=== PATIENT | male | born 1945 | race Caucasian/White ===

== ENCOUNTER → 2016-12-16 | Outpatient (CLI) | payer MEDICARE ==
--- NOTE | 2016-12-16 11:54 | US ---
EXAMINATION TYPE: US carotid duplex BILAT DATE OF EXAM: 12/16/2016 COMPARISON: 07/22/2015 CLINICAL HISTORY: I65.29 Occlusion and stenosis of carotid artery. follow up exam EXAM MEASUREMENTS: RIGHT: Peak Systolic Velocity (PSV) cm/sec ----- Right CCA: 85.5 ----- Right ICA: 180.6 ----- Right ECA: 158.9 ICA/CCA ratio: 2.1 RIGHT: End Diastole cm/sec ----- Right CCA: 16.1 ----- Right ICA: 48.5 ----- Right ECA: 13.4 LEFT: Peak Systolic Velocity (PSV) cm/sec ----- Left CCA: 74.3 ----- Left ICA: 114.4 ----- Left ECA: 125.2 ICA/CCA ratio: 1.5 LEFT: End Diastole cm/sec ----- Left CCA: 23.8 ----- Left ICA: 31.2 ----- Left ECA: 16.4 VERTEBRALS (direction of flow): Right Vertebral: Antegrade Left Vertebral: Antegrade Heterogeneous plaque seen bilaterally IMPRESSION: Atheromatous plaquing present within the carotid bifurcations. Moderate narrowing of the right internal carotid artery origin may be present based on velocity measurements and estimated bet ween 50 and 69%. Correlate with the patient's symptoms. [facility] although the degree of stenosis estimate remains the same. Criteria for Assigning % of Stenosis / Diameter reduction (Estimation based on the indirect measurements of the internal carotid artery velocities (ICA PSV). 1. Normal (no stenosis)=ICA PSV < 125 cm/s: ratio < 2.0: ICA EDV<40 cm/s. 2. Less than 50% stenosis=ICA PSV < 125 cm/s: ratio < 2.0: ICA EDV<40 cm/s. 3. 50 to 69% stenosis=ICA PSV of 125 to 230 cm/s: ratio 2.0 ? 4.0: ICA EDV 40-100 cm/s. 4. Greater than 70% stenosis to near occlusion= ICA PSV > 230 cm/s: ratio > 4.0: ICA EDV > 100 cm/s. 5. Near occlusion= ICA PSV velocities may be low or undetectable: variable ratio and ICA EDV. 6. Total occlusion=unable to detect flow.
== END | disposition home or self-care (01) ==
LOC: RADUSWWP 10:47
PROVIDERS: ATTEND Family Medicine
DX: I65.21 Occlusion and stenosis of right carotid artery (principal)
CPT/HCPCS: 93880

== ENCOUNTER 2017-12-08 12:16 | Emergency (ER) | payer MEDICARE ==
[2017-12-08 12:22] VITALS: TEMP 97.6
[2017-12-08] MEDS ORDERED: SODIUM CHLORIDE 0.9% 1,000 ML IV STA (12:51)
--- NOTE | 2017-12-08 12:54 | ED ---
Weakness HPI - General Chief complaint: Weakness Stated complaint: bilat leg weakness Time Seen by Provider: 12/08/17 12:28 Source: patient, family, RN notes reviewed Mode of arrival: wheelchair Limitations: physical limitation - History of Present Illness Initial comments: This is a 72-year-old male who states he came in from outside while walking in both legs gave out. He states he fell on his knees was not able to get up for about 20 minutes he finally rollover inside at that time his son-in-law came and helped him up. He states he last evening and episode nausea vomiting with some abdominal pain with the abdominal pain going away after the vomiting. He' s had no constipation or diarrhea denies any cough fevers chills nausea vomiting sweats no history of stroke no focal weakness at this time. MD Complaint: generalized weakness - Related Data Home Medications Medication Instructions Recorded Confirmed Atorvastatin [Lipitor] 40 mg PO HS 12/08/17 12/08/17 Losartan Potassium [Cozaar] 100 mg PO DAILY 12/08/17 12/08/17 amLODIPine [Norvasc] 5 mg PO DAILY 12/08/17 12/08/17 metFORMIN HCL 1,000 mg PO BID 12/08/17 12/08/17 Allergies Allergy/AdvReac Type Severity Reaction Status Date / Time No Known Allergies Allergy Verified 12/08/17 13:48 Review of Systems ROS Statement: Those systems with pertinent positive or pertinent negative responses have been documented in the HPI. ROS Other: All systems not noted in ROS Statement are negative. Past Medical History Past Medical History: Diabetes Mellitus, Hyperlipidemia, Hypertension History of Any Multi-Drug Resistant Organisms: None Reported Past Surgical History: Tonsillectomy Additional Past Surgical History / Comment(s): mole removal Past Psychological History: No Psychological Hx Reported Smoking Status: Current every day smoker Past Alcohol Use History: None Reported Past Drug Use History: None Reported General Exam - General Exam Comments Initial Comments: Is a well-developed well-nourished awake alert oriented times female he has a [place] Coma Scale of 15 Limitations: physical limitation General appearance: alert, in no apparent distress Head exam: Present: atraumatic, normocephalic, normal inspection Eye exam: Present: normal appearance, PERRL, EOMI. Absent: scleral icterus, conjunctival injection, periorbital swelling ENT exam: Present: mucous membranes dry Neck exam: Present: normal inspection. Absent: tenderness, meningismus, lymphadenopathy Respiratory exam: Present: normal lung sounds bilaterally. Absent: respiratory distress, wheezes, rales, rhonchi, stridor Cardiovascular Exam: Present: regular rate, normal rhythm, normal heart sounds. Absent: systolic murmur, diastolic murmur, rubs, gallop, clicks GI/Abdominal exam: Present: soft, normal bowel sounds. Absent: distended, tenderness, guarding, rebound, rigid Extremities exam: Present: normal inspection, full ROM, normal capillary refill , other (Tenderness palpation of the knees full range of motion.). Absent: tenderness, pedal edema, joint swelling, calf tenderness Back exam: Present: normal inspection Neurological exam: Present: alert, oriented X3, CN II-XII intact Psychiatric exam: Present: normal affect, normal mood Skin exam: Present: warm, dry, intact, normal color. Absent: rash Course Vital Signs 12/08/17 12/08/17 12/08/17 12:19 13:18 14:42 Temperature 97.6 F Pulse Rate 87 101 H 79 Respiratory 18 18 16 Rate Blood Pressure 90/58 110/57 141/62 O2 Sat by Pulse 95 94 L 97 Oximetry 12/08/17 15:47 Temperature Pulse Rate 71 Respiratory 18 Rate Blood Pressure 129/60 O2 Sat by Pulse 98 Oximetry EKG Findings - EKG Results: EKG: interpreted by ERINN, sinus rhythm (Sinus rhythm of 87. Interval 168 QRS 86 QT since QTC 362/435 nonspecific inferior changes.) Medical Decision Making - Medical Decision Making Patient was hydrated and feels much improved was able ably without difficulty. Patient will be discharged to did discuss the findings patient family member. Patient was offered the opportunity for admission he declined he really go home and follow up outpatient - Lab Data Result diagrams: 12/08/17 12:39 12/08/17 12:39 Lab Results 12/08/17 12/08/17 12/08/17 Range/Units 12:39 12:39 12:39 WBC 11.8 H (3.8-10.6) k/uL RBC 4.85 (4.30-5.90) m/uL Hgb 15.2 (13.0-17.5) gm/dL Hct 44.0 (39.0-53.0) % MCV 90.7 (80.0-100.0) fL MCH 31.3 (25.0-35.0) pg MCHC 34.5 (31.0-37.0) g/dL RDW 14.1 (11.5-15.5) % Plt Count 244 (150-450) k/uL Neutrophils % 87 % Lymphocytes % 5 % Monocytes % 5 % Eosinophils % 2 % Basophils % 0 % Neutrophils # 10.2 H (1.3-7.7) k/uL Lymphocytes # 0.6 L (1.0-4.8) k/uL Monocytes # 0.6 (0-1.0) k/uL Eosinophils # 0.2 (0-0.7) k/uL Basophils # 0.0 (0-0.2) k/uL Sodium 137 (137-145) mmol/L Potassium 5.1 (3.5-5.1) mmol/L Chloride 103 (98-107) mmol/L Carbon Dioxide 16 L (22-30) mmol/L Anion Gap 18 mmol/L BUN 33 H (9-20) mg/dL Creatinine 1.72 H (0.66-1.25) mg/dL Est GFR (CKD-EPI)AfAm 45 (>60 ml/min/1.73 sqM) Est GFR (CKD-EPI)NonAf 39 (>60 ml/min/1.73 sqM) Glucose 106 H (74-99) mg/dL Calcium 9.7 (8.4-10.2) mg/dL Magnesium 1.9 (1.6-2.3) mg/dL Total Bilirubin 1.2 (0.2-1.3) mg/dL AST 17 (17-59) U/L ALT 25 (21-72) U/L Alkaline Phosphatase 58 (38-126) U/L Total Creatine Kinase 181 H (55-170) U/L CK-MB (CK-2) 3.9 H* (0.0-2.4) ng/mL CK-MB (CK-2) Rel Index 2.2 Troponin I 0.017 (0.000-0.034) ng/mL Total Protein 6.9 (6.3-8.2) g/dL Albumin 4.5 (3.5-5.0) g/dL - Radiology Data Radiology results: report reviewed (I did review the imaging and report no acute findings.), image reviewed Disposition Clinical Impression: Orthostatic lightheadedness, Heat exhaustion, Dehydration, Prerenal azotemia, Fall Disposition: HOME SELF-CARE Condition: Good Instructions: Dehydration (ED), Hypotension (ED), Heat Exhaustion (ED) Additional Instructions: Increase your oral fluid consumption Is patient prescribed a controlled substance at d/c from ED?: No Referrals: Wilmer Garcia MD [Primary Care Provider] - 1-2 days
[2017-12-08 13:13] LABS: Basophils % (A) 0 %; Eosinophils # (A) 0.2 k/uL (0-0.7); Eosinophils % (A) 2 %; HGB 15.2 gm/dL (13.0-17.5); Lymphocytes # (A) 0.6 k/uL (1.0-4.8); Lymphocytes % (A) 5 %; MCH 31.3 pg (25.0-35.0); MCHC 34.5 g/dL (31.0-37.0); MCV 90.7 fL (80.0-100.0); Mean Platelet Volume 7.1; Monocytes # (A) 0.6 k/uL (0-1.0); Monocytes % (A) 5 %; Neutrophils # (A) 10.2 k/uL (1.3-7.7); Neutrophils % (A) 87 %; Platelet Count 244 k/uL (150-450); RBC 4.85 m/uL (4.30-5.90); RDW 14.1 % (11.5-15.5); WBC 11.8 k/uL (3.8-10.6)
[2017-12-08 13:22] LABS: Albumin 4.5 g/dL (3.5-5.0); Calcium 9.7 mg/dL (8.4-10.2); Magnesium 1.9 mg/dL (1.6-2.3); Potassium 5.1 mmol/L (3.5-5.1); Total Bilirubin 1.2 mg/dL (0.2-1.3); Total Protein 6.9 g/dL (6.3-8.2)
--- NOTE | 2017-12-08 13:41 | CT ---
EXAMINATION TYPE: CT brain wo con DATE OF EXAM: 12/08/2017 COMPARISON: December 30, 2010 HISTORY: pain CT DLP: [address] of the brain was performed. The ventricles, basal cisterns and sulci overlying the cerebral convexities demonstrate mild enlargem ent. There is no evidence for intracranial hemorrhage or sulcal effacement. There is decreased attenuation about the periventricular white matter and deep white matter of both c erebral hemispheres, compatible with chronic small vessel ischemia. Differential diagnosis does inclu de demyelination. No mass effects are seen.No midline shift. Osseous calvarium is intact. If symptoms persist consider MRI. IMPRESSION: 1. Age related atrophic and chronic small vessel ischemic change without acute intracranial process s een at this time.
[2017-12-08 13:45] LABS: Troponin I 0.017 ng/mL (0.000-0.034)
[2017-12-08 13:50] LABS: Creatine Kinase MB 3.9 ng/mL (0.0-2.4)
--- NOTE | 2017-12-08 13:52 | XR ---
EXAMINATION TYPE: XR chest 2V DATE OF EXAM: 12/08/2017 COMPARISON: NONE HISTORY: Shortness of breath TECHNIQUE: Frontal and lateral views of the chest are obtained. FINDINGS: Scattered senescent parenchymal changes noted. Hyperinflation compatible with COPD. No evidence for infiltrate. No evidence for atelectasis. Heart size is stable. Mediastinal structures are stable and grossly unremarkable. No evidence for hilar prominence. Degenerative changes dorsal spine. IMPRESSION: 1. No evidence for acute pulmonary disease.
--- NOTE | 2017-12-08 13:55 | XR ---
EXAMINATION TYPE: XR abdomen 1V DATE OF EXAM: 12/08/2017 COMPARISON: NONE HISTORY: Pain TECHNIQUE: Single supine KUB image of the abdomen is obtained FINDINGS: Small bowel demonstrates no evidence for dilatation or air fluid levels. Gas and fecal material is seen in non-distended colon. No convincing evidence for pneumoperitoneum. Suspect right-sided nephrolithiasis. Vascular calcific lesion seen. The lung bases are clear. The osseous structures are intact. IMPRESSION: 1. Overall nonobstructive bowel gas pattern.
[2017-12-08 15:48] VITALS: BP 129/60; PULSE 71; RESP 18
== END 2017-12-08 16:15 | disposition home or self-care (01) ==
LOC: EC 12:16
DX: T67.5XXA Heat exhaustion, unspecified, initial encounter (principal); E86.0 Dehydration; R79.89 Other specified abnormal findings of blood chemistry; E11.9 Type 2 diabetes mellitus without complications; E78.5 Hyperlipidemia, unspecified; I10 Essential (primary) hypertension; F17.200 Nicotine dependence, unspecified, uncomplicated; Z79.84 Long term (current) use of oral hypoglycemic drugs; Z79.899 Other long term (current) drug therapy; W19.XXXA Unspecified fall, initial encounter; Y93.01 Activity, walking, marching and hiking
CPT/HCPCS: 36415; 70450; 71046; 74018; 80053; 82550; 82553; 83735; 84484; 85025; 93005; 96360; 99285

== ENCOUNTER 2017-12-10 10:47 | Inpatient (IN) | payer MEDICARE ==
--- NOTE | 2017-12-10 11:50 | ED ---
General Adult HPI - General Chief complaint: Neuro Symptoms/Deficit Stated complaint: Slurred speech/weakness Time Seen by Provider: 12/10/17 11:20 Source: patient, family, RN notes reviewed Mode of arrival: wheelchair Limitations: physical limitation - History of Present Illness Initial comments: Patient is a pleasant 72-year-old male presenting to the emergency department with family for concerns for stroke. Patient did have leg weakness and a fall on Monday. Patient has had some confusion intermittently over the past week. Symptoms seemed much worse today. Patient was driving around for a couple of hours until he made it to the restaurant he was going to. Patient was more confused. Patient did have another fall however still denies injury. Family noticed slurred speech which appears new. Onset today is unclear. Symptoms were noticed by bystanders around 810 this morning when the family was called. Patient does admit to having some right lateral leg weakness however otherwise has no concerns. Patient denies any confusion. Patient states his speech seems normal. Family is also concerned that patient has been seeming depressed recently and made some suicidal comments. - Related Data Home Medications Medication Instructions Recorded Confirmed Atorvastatin [Lipitor] 40 mg PO HS 12/08/17 12/08/17 Losartan Potassium [Cozaar] 100 mg PO DAILY 12/08/17 12/08/17 amLODIPine [Norvasc] 5 mg PO DAILY 12/08/17 12/08/17 metFORMIN HCL 1,000 mg PO BID 12/08/17 12/08/17 Allergies Allergy/AdvReac Type Severity Reaction Status Date / Time No Known Allergies Allergy Verified 12/10/17 11:07 Review of Systems ROS Statement: Those systems with pertinent positive or pertinent negative responses have been documented in the HPI. ROS Other: All systems not noted in ROS Statement are negative. Constitutional: Denies: fever Eyes: Denies: eye pain ENT: Denies: ear pain Respiratory: Denies: cough Cardiovascular: Denies: chest pain Endocrine: Denies: fatigue Gastrointestinal: Denies: abdominal pain Genitourinary: Denies: dysuria Musculoskeletal: Denies: back pain Skin: Denies: rash Neurological: Reports: weakness (Bilateral leg weakness). Denies: headache Past Medical History Past Medical History: Diabetes Mellitus, Hyperlipidemia, Hypertension History of Any Multi-Drug Resistant Organisms: None Reported Past Surgical History: Tonsillectomy Additional Past Surgical History / Comment(s): mole removal Past Psychological History: No Psychological Hx Reported Smoking Status: Current every day smoker Past Alcohol Use History: None Reported Past Drug Use History: None Reported General Exam Limitations: physical limitation General appearance: alert, in no apparent distress Head exam: Present: atraumatic Eye exam: Present: normal appearance, PERRL, EOMI. Absent: nystagmus ENT exam: Present: normal oropharynx Neck exam: Present: normal inspection. Absent: tenderness Respiratory exam: Present: normal lung sounds bilaterally Cardiovascular Exam: Present: regular rate, normal rhythm GI/Abdominal exam: Present: soft. Absent: tenderness Extremities exam: Present: normal inspection Neurological exam: Present: alert, oriented X3, CN II-XII intact Expanded Neurological exam: Present: other (Patient does have some slurred speech) Patient oriented to: Present: person, place, time Cranial nerves: EOM's Intact: Normal Cerebellar function: Finger to Nose: Normal Sensory exam: Upper Extremity Light Touch: Normal, Lower Extremity Light Touch: Normal Motor strength exam: RUE: 5, LUE: 5, RLE: 4, LLE: 5 Eye Response: (4) open spontaneously Motor Response: (6) obeys commands Verbal Response: (5) oriented Psychiatric exam: Present: normal affect, normal mood Skin exam: Present: normal color Course Vital Signs 12/10/17 12/10/17 11:03 12:23 Temperature 98.4 F Pulse Rate 93 82 Respiratory 18 18 Rate Blood Pressure 99/64 99/49 O2 Sat by Pulse 95 96 Oximetry EKG Findings - EKG Comments: EKG Findings:: Normal sinus rhythm 86. [place] 158. QRS 86. QT 368. QTC 440. Normal axis. Normal QRS. No acute ST change. Medical Decision Making - Medical Decision Making Patient reevaluated without significant change. Patient and family were updated. Case was discussed in detail with Dr. Medel, who will admit for Dr. Garcia. Neurology and psychiatry will be placed on consult. - Lab Data Result diagrams: 12/10/17 12:05 12/10/17 12:05 Lab Results 12/10/17 12/10/17 12/10/17 Range/Units 12:05 12:05 12:05 WBC 9.0 (3.8-10.6) k/uL RBC 4.56 (4.30-5.90) m/uL Hgb 14.1 (13.0-17.5) gm/dL Hct 41.5 (39.0-53.0) % MCV 91.1 (80.0-100.0) fL MCH 30.9 (25.0-35.0) pg MCHC 33.9 (31.0-37.0) g/dL RDW 14.1 (11.5-15.5) % Plt Count 237 (150-450) k/uL Neutrophils % 77 % Lymphocytes % 11 % Monocytes % 6 % Eosinophils % 4 % Basophils % 1 % Neutrophils # 6.9 (1.3-7.7) k/uL Lymphocytes # 1.0 (1.0-4.8) k/uL Monocytes # 0.6 (0-1.0) k/uL Eosinophils # 0.4 (0-0.7) k/uL Basophils # 0.1 (0-0.2) k/uL PT (9.0-12.0) sec INR (<1.2) APTT (22.0-30.0) sec Sodium 139 (137-145) mmol/L Potassium 4.8 (3.5-5.1) mmol/L Chloride 106 (98-107) mmol/L Carbon Dioxide 20 L (22-30) mmol/L Anion Gap 13 mmol/L BUN 38 H (9-20) mg/dL Creatinine 2.43 H (0.66-1.25) mg/dL Est GFR (CKD-EPI)AfAm 30 (>60 ml/min/1.73 sqM) Est GFR (CKD-EPI)NonAf 26 (>60 ml/min/1.73 sqM) Glucose 104 H (74-99) mg/dL Calcium 9.5 (8.4-10.2) mg/dL Total Bilirubin 1.3 (0.2-1.3) mg/dL AST 17 (17-59) U/L ALT 26 (21-72) U/L Alkaline Phosphatase 63 (38-126) U/L Total Creatine Kinase 254 H (55-170) U/L CK-MB (CK-2) 2.5 H* (0.0-2.4) ng/mL CK-MB (CK-2) Rel Index 1.0 Troponin I <0.012 (0.000-0.034) ng/mL Total Protein 6.7 (6.3-8.2) g/dL Albumin 4.4 (3.5-5.0) g/dL Urine Color Urine Appearance (Clear) Urine pH (5.0-8.0) Ur Specific [place] (1.001-1.035) Urine Protein (Negative) Urine Glucose (UA) (Negative) Urine Ketones (Negative) Urine Blood (Negative) Urine Nitrite (Negative) Urine Bilirubin (Negative) Urine Urobilinogen (<2.0) mg/dL Ur Leukocyte Esterase (Negative) 12/10/17 12/10/17 Range/Units 12:05 12:29 WBC (3.8-10.6) k/uL RBC (4.30-5.90) m/uL Hgb (13.0-17.5) gm/dL Hct (39.0-53.0) % MCV (80.0-100.0) fL MCH (25.0-35.0) pg MCHC (31.0-37.0) g/dL RDW (11.5-15.5) % Plt Count (150-450) k/uL Neutrophils % % Lymphocytes % % Monocytes % % Eosinophils % % Basophils % % Neutrophils # (1.3-7.7) k/uL Lymphocytes # (1.0-4.8) k/uL Monocytes # (0-1.0) k/uL Eosinophils # (0-0.7) k/uL Basophils # (0-0.2) k/uL PT 10.2 (9.0-12.0) sec INR 1.0 (<1.2) APTT 24.2 (22.0-30.0) sec Sodium (137-145) mmol/L Potassium (3.5-5.1) mmol/L Chloride (98-107) mmol/L Carbon Dioxide (22-30) mmol/L Anion Gap mmol/L BUN (9-20) mg/dL Creatinine (0.66-1.25) mg/dL Est GFR (CKD-EPI)AfAm (>60 ml/min/1.73 sqM) Est GFR (CKD-EPI)NonAf (>60 ml/min/1.73 sqM) Glucose (74-99) mg/dL Calcium (8.4-10.2) mg/dL Total Bilirubin (0.2-1.3) mg/dL AST (17-59) U/L ALT (21-72) U/L Alkaline Phosphatase (38-126) U/L Total Creatine Kinase (55-170) U/L CK-MB (CK-2) (0.0-2.4) ng/mL CK-MB (CK-2) Rel Index Troponin I (0.000-0.034) ng/mL Total Protein (6.3-8.2) g/dL Albumin (3.5-5.0) g/dL Urine Color Yellow Urine Appearance Clear (Clear) Urine pH 5.5 (5.0-8.0) Ur Specific [place] 1.021 (1.001-1.035) Urine Protein Trace H (Negative) Urine Glucose (UA) Negative (Negative) Urine Ketones Negative (Negative) Urine Blood Negative (Negative) Urine Nitrite Negative (Negative) Urine Bilirubin Negative (Negative) Urine Urobilinogen 2.0 (<2.0) mg/dL Ur Leukocyte Esterase Negative (Negative) - Radiology Data Radiology results: report reviewed (ET scan of the brain reveals no acute abnormality. Degenerative changes.) Interpreted by me: Chest x-ray shows no acute abnormality. Radiology report is pending. Disposition Clinical Impression: Cerebrovascular accident Disposition: ADMITTED IP TO THIS HOSP Is patient prescribed a controlled substance at d/c from ED?: No Referrals: Wilmer Garcia MD [Primary Care Provider] - 1-2 days Decision Time: 13:48
[2017-12-10 12:30] LABS: Basophils # (A) 0.1 k/uL (0-0.2); Basophils % (A) 1 %; Eosinophils # (A) 0.4 k/uL (0-0.7); Eosinophils % (A) 4 %; HCT 41.5 % (39.0-53.0); HGB 14.1 gm/dL (13.0-17.5); Lymphocytes % (A) 11 %; MCH 30.9 pg (25.0-35.0); MCHC 33.9 g/dL (31.0-37.0); MCV 91.1 fL (80.0-100.0); Mean Platelet Volume 7.2; Monocytes # (A) 0.6 k/uL (0-1.0); Monocytes % (A) 6 %; Neutrophils # (A) 6.9 k/uL (1.3-7.7); Neutrophils % (A) 77 %; Platelet Count 237 k/uL (150-450); RBC 4.56 m/uL (4.30-5.90); RDW 14.1 % (11.5-15.5)
[2017-12-10 12:36] LABS: Appearance,Urine Clear (Clear); Bilirubin,Urine Negative (Negative); Blood,Urine Negative (Negative); Color,Urine Yellow; Glucose,Urine (UA) Negative (Negative); Ketones,Urine Negative (Negative); Leukocyte Esterase,Urine Negative (Negative); Nitrite,Urine Negative (Negative); PH, Urine 5.5 (5.0-8.0); Protein,Urine Trace (Negative); Specific Gravity,Urine 1.021 (1.001-1.035)
[2017-12-10 12:37] LABS: Albumin 4.4 g/dL (3.5-5.0); Calcium 9.5 mg/dL (8.4-10.2); Partial Thromboplastin Time 24.2 sec (22.0-30.0); Potassium 4.8 mmol/L (3.5-5.1); Prothrombin Time 10.2 sec (9.0-12.0); Total Bilirubin 1.3 mg/dL (0.2-1.3); Total Protein 6.7 g/dL (6.3-8.2)
[2017-12-10 12:56] LABS: Creatine Kinase 254 U/L (55-170)
--- NOTE | 2017-12-10 13:09 | CT ---
EXAMINATION TYPE: CT brain wo con DATE OF EXAM: 12/10/2017 COMPARISON: Previous study dated 12/08/2017. HISTORY: Slurred speech/weakness, neuro deficits CT DLP: 1150 mGycm Automated exposure control for dose reduction was used. FINDINGS: There are generalized changes of sulcal prominence and ventriculomegaly, compatible with atrophic alfredo nge. There is diffuse periventricular white matter lucency, compatible with chronic white matter isch emic change. There is no acute focal lesion, mass effect or midline shift identified. I do not see ev idence of intracranial blood. Visualized portions of the paranasal sinuses and mastoids are clear. The bony calvarium is intact. IMPRESSION: 1. NO ACUTE INTRACRANIAL ABNORMALITY. 2. DEGENERATIVE CHANGE.
[2017-12-10 13:10] LABS: Troponin I <0.012 ng/mL (0.000-0.034)
[2017-12-10 13:13] LABS: Creatine Kinase MB 2.5 ng/mL (0.0-2.4)
[2017-12-10] MEDS ORDERED: ASPIRIN 325 MG TAB PO STA (13:48)
--- NOTE | 2017-12-10 14:02 | XR ---
EXAMINATION TYPE: XR chest 2V DATE OF EXAM: 12/10/2017 HISTORY: altered mental status. REFERENCE: Previous study dated 12/08/2017. FINDINGS: The lungs are clear. Pleural space are clear. The heart is not enlarged. IMPRESSION: NO ACTIVE CARDIOTHORACIC ABNORMALITY.
--- NOTE | 2017-12-10 15:25 | US ---
EXAMINATION TYPE: US carotid duplex BILAT DATE OF EXAM: 12/10/2017 COMPARISON: Previous 12/16/2016 CLINICAL HISTORY: Stenosis. HTN. Patient states walking and legs gave out, unable to stand back up. EXAM MEASUREMENTS: RIGHT: Peak Systolic Velocity (PSV) cm/sec ----- Right CCA: 59.0 ----- Right ICA: 188.4 ----- Right ECA: 153.0 ICA/CCA ratio: 3.2 RIGHT: End Diastole cm/sec ----- Right CCA: 10.1 ----- Right ICA: 38.6 ----- Right ECA: 0.0 LEFT: Peak Systolic Velocity (PSV) cm/sec ----- Left CCA: 61.6 ----- Left ICA: 89.7 ----- Left ECA: 174.6 ICA/CCA ratio: 1.5 LEFT: End Diastole cm/sec ----- Left CCA: 10.1 ----- Left ICA: 20.4 ----- Left ECA: 0.0 VERTEBRALS (direction of flow): Right Vertebral: Antegrade Left Vertebral: Antegrade Rhythm: Normal Bilateral wall thickening. Right CCA significant stenosis. Elevated velocities seen in right prox I CA, right mid ICA, right ECA and left ECA. Plaque seen right mid CCA, bilateral bulbs and prox left ECA. IMPRESSION: Hemodynamic significant stenosis of the proximal internal carotid artery on the right by Doppler criteria, corresponding to approximately 50-69% diameter reduction at Doppler criteria, an i ndirect measurement of carotid stenosis, consider carotid CTA Criteria for Assigning % of Stenosis / Diameter reduction (Estimation based on the indirect measurements of the internal carotid artery velocities (ICA PSV). 1. Normal (no stenosis)=ICA PSV < 125 cm/s: ratio < 2.0: ICA EDV<40 cm/s. 2. Less than 50% stenosis=ICA PSV < 125 cm/s: ratio < 2.0: ICA EDV<40 cm/s. 3. 50 to 69% stenosis=ICA PSV of 125 to 230 cm/s: ration 2.0 ? 4.0: ICA EDV 40-100 cm/s. 4. Greater than 70% stenosis to near occlusion= ICA PSV > 230 cm/s: ratio > 4.0: ICA EDV > 100 cm/s. 5. Near occlusion= ICA PSV velocities may be low or undetectable: variable ratio and ICA EDV. 6. Total occlusion=unable to detect flow.
[2017-12-10] MEDS: SODIUM CHLORIDE 0.9% 1,000 ML IV SCH (16:03)
[2017-12-10 17:02] VITALS: BMI 32.3
[2017-12-10 17:41] LABS: Glucose,Whole Blood 127 mg/dL (75-99)
[2017-12-10] MEDS ORDERED: HYDROcodone/APAP 10-325MG 1 EACH TAB PO PRN (18:23)
[2017-12-10] MEDS: ATORVASTATIN 40 MG TAB PO SCH (19:40)
--- NOTE | 2017-12-10 20:00 | P.CNNES ---
History of Present Illness Consult date: 12/10/17 Reason for Consult: Patient admitted with weakness and confusion and possible stroke. History of Present Illness: This patient is a 72-year-old right-handed white male who apparently this past Monday was at home and sustained a fall. Patient states he was so weak in his legs he could not stand due to the weakness. Apparently he was able to pull himself up and was able to get back to his normal routine on Monday. Apparently today the patient decided to make a trip to the restaurant and apparently while going in sustained a fall. He was once again complaining of weakness in his legs prior to the fall. He was noted by several bystanders at about 8 AM this morning as being confused and complaining of weakness on his right leg. The patient did not appear to be confused. His speech has been noticed by his family is being slurred on Monday. The exact onset of his speech and weakness is still unclear. The family was very concerned as he is also been complaining of feeling very depressed and having suicidal ideation. For these reasons the family decided to bring him to the emergency room for further evaluation. He was seen in the emergency room at [facility] today for further evaluation. Apparently he was here on 12/08/2017 after his initial fall at home and was felt to have dehydration and mild hypotension. He was discharged home. Now with the second fall today and increasing suicidal ideation he was admitted to the hospital by Dr. Duke in the emergency room. He was sent for another repeat computed tomography scan of the brain today which revealed no acute intracranial abnormality. There was some degenerative changes noted. No change from previous study done 2017. Patient denies any significant past history of TIA or stroke. Apparently his mood disorder and depression symptoms are more recent. He does have a sitter at bedside. Patient did undergo a carotid Doppler ultrasound today which reveals CT hemodynamically significant stenosis of the right internal carotid artery measuring 5069 percent stenosis. The patient states he does take one baby aspirin but not on a regular basis at home. He is now been admitted and neurology has been consulted for further evaluation and recommendations. Review of Systems Constitutional: Denies chills, Denies fever Eyes: denies blurred vision, denies pain Ears, nose, mouth and throat: Denies headache, Denies sore throat Cardiovascular: Denies chest pain, Denies shortness of breath Respiratory: Denies cough Gastrointestinal: Denies abdominal pain, Denies diarrhea, Denies nausea, Denies vomiting Musculoskeletal: Denies myalgias Integumentary: Denies pruritus, Denies rash Neurological: Reports change in mentation, Reports change in speech, Reports confusion, Reports gait dysfunction, Reports memory loss, Reports motor disturbance, Reports paresthesias, Denies numbness, Denies weakness Psychiatric: Reports memory loss, Reports suicidal ideation, Denies anxiety, Denies depression Endocrine: Denies fatigue, Denies weight change Past Medical History Past Medical History: Diabetes Mellitus, Hyperlipidemia, Hypertension History of Any Multi-Drug Resistant Organisms: None Reported Past Surgical History: Tonsillectomy Additional Past Surgical History / Comment(s): mole removal Past Psychological History: No Psychological Hx Reported Smoking Status: Current every day smoker Past Alcohol Use History: None Reported Past Drug Use History: None Reported - Past Family History Sister(s) History Unknown: Yes Medications and Allergies Home Medications Medication Instructions Recorded Confirmed Type Atorvastatin [Lipitor] 40 mg PO HS 12/08/17 12/10/17 History Losartan Potassium [Cozaar] 100 mg PO DAILY 12/08/17 12/10/17 History amLODIPine [Norvasc] 5 mg PO DAILY 12/08/17 12/10/17 History metFORMIN HCL 1,000 mg PO BID 12/08/17 12/10/17 History HYDROcodone/APAP 10-325MG [[place] 1 tab PO Q6HR PRN 12/10/17 12/10/17 History 10-325] Ibuprofen [Motrin] 800 mg PO TID PRN 12/10/17 12/10/17 History Allergies Allergy/AdvReac Type Severity Reaction Status Date / Time No Known Allergies Allergy Verified 12/10/17 14:21 Physical Examination - Vital Signs Vital Signs: Vital Signs Temp Pulse Pulse Resp BP BP Pulse Ox 12/10/17 15:48 80 18 135/63 96 12/10/17 14:48 91 18 112/61 97 12/10/17 13:48 83 18 116/57 95 12/10/17 13:46 85 18 99/55 95 12/10/17 12:23 82 18 99/49 96 12/10/17 11:03 98.4 F 93 18 99/64 95 Intake and Output 12/10/17 12/10/17 12/10/17 06:59 14:59 22:59 Other: Weight 99.246 kg - Constitutional General appearance: average body habitus, cooperative - EENT EENT: PERRL, mucous membranes moist - Respiratory Respiratory: lungs clear, normal breath sounds - Cardiovascular Cardiovascular: regular rate, normal S1, normal S2 Extremities: no peripheral edema bilaterally - Gastrointestinal Gastrointestinal: normoactive bowel sounds - Integumentary Integumentary: normal - Neurologic Cranial nerve examination: PERRL, EOMI, VFF, V1/V2/V3 grossly intact, face symmetric, tongue midline, intact gag reflex, intact corneal reflex, normal palatal elevation Speech examination: intact Sensorimotor examination: intact Motor examination - right side: 4/5: biceps, triceps, wrist flexion, wrist extension, pulley worker, hip flexors, knee extensors, dorsiflexion, toe extension (EHL) , plantarflexion Motor examination - left side: 4/5: biceps, triceps, wrist flexion, wrist extension, pulley worker, hip flexors, knee extensors, dorsiflexion, toe extension (EHL) , plantarflexion Detailed sensory examination: intact Reflex and gait examination: intact Reflexes: 1+: ankle, bicep, knee, tricep - Musculoskeletal Musculoskeletal: no pain - Psychiatric Psychiatric: mood/affect appropriate, cooperative Results - Laboratory Findings CBC and BMP: 12/10/17 12:05 12/10/17 12:05 Abnormal Lab Findings: Abnormal Labs 12/10/17 12/10/17 12/10/17 12:05 12:05 12:29 Carbon Dioxide 20 L BUN 38 H Creatinine 2.43 H Glucose 104 H Total Creatine Kinase 254 H CK-MB (CK-2) 2.5 H* Urine Protein Trace H Assessment and Plan (1) Left acute arterial ischemic stroke, MCA (middle cerebral artery) Current Visit: Yes Status: Acute Code(s): I63.512 - CEREB INFRC D/T UNSP OCCLS OR STENOS OF LEFT MID CEREB ART SNOMED Code(s): 060077326 (2) Suicidal ideation Current Visit: Yes Status: Acute Code(s): R45.851 - SUICIDAL IDEATIONS SNOMED Code(s): 9922806 (3) Fall Current Visit: No Status: Acute Code(s): W19.XXXA - UNSPECIFIED FALL, INITIAL ENCOUNTER SNOMED Code(s): 6849287 (4) Dehydration Current Visit: No Status: Acute Code(s): E86.0 - DEHYDRATION SNOMED Code(s ): 25508503 (5) Orthostatic lightheadedness Current Visit: No Status: Acute Code(s): R42 - DIZZINESS AND GIDDINESS SNOMED Code(s): 85810385 Plan: This patient is a 72-year-old male being evaluated for recent fall that occurred on Monday of this past week. He was unable get up due to weakness in his legs. He had another fall this morning while going to a restaurant at about 8 AM. He could not get himself up. He was brought into the emergency room where he was evaluated by Dr. Duke. He underwent a computed tomography scan of the brain which revealed age related atrophy and chronic small vessel ischemic changes. He had 2 CAT scans performed as he was seen in the emergency room on 12/08/2017 as well and CAT scan once again was negative. Patient was subsequently admitted to hospital today for further neurological evaluation for stroke as well as psychiatry consultation regarding suicidal ideation. We have recommended the patient undergo an MRI of the brain and a complete stroke evaluation. His overall prognosis at this time remains very guarded. Time with Patient: Greater than 30
[2017-12-10 21:13] LABS: Glucose,Whole Blood 124 mg/dL (75-99)
[2017-12-10] MEDS: INSULIN ASPART 100 UNIT/ML 1 ML 10 ML VIAL SQ SCH (21:20)
--- NOTE | 2017-12-10 23:42 | HP ---
HISTORY AND PHYSICAL CHIEF COMPLAINTS: Confusion, suicidal ideation, weakness, fall. HISTORY OF PRESENT ILLNESS: This 72-year-old gentleman with a past medical history of diabetes, hypertension, hyperlipidemia being followed by Dr. Wilmer Garcia in the outpatient setting complaining of generalized weakness and tiredness. The patient apparently not eating and drinking well. The patient apparently had a fall on Monday, came to the ER dehydrated. Patient went home. Currently patient another fall and the patient was found to be apparently mildly confused and also had some suicidal ideation. The patient also lost money to a probable scam according to the staff. The patient admitted for further evaluation and treatment. CT scan did not show any acute abnormality. Minimal weakness on the right side is noted. Urology is following the patient closely. Creatinine is elevated. There is no history of fever, rigors or chills at this time. PAST MEDICAL HISTORY: Diabetes, hypertension and hyperlipidemia. MEDICATIONS: Prior to admission include: 1. Metformin 1000 mg p.o. b.i.d. 2. Norvasc 5 mg p.o. daily. 3. Cozaar 100 mg p.o. daily. 4. Motrin 800 mg t.i.d. p.r.n. 5. Hydrocodone 1 tab q.6h p.r.n. 6. Lipitor 40 mg q.h.s. ALLERGIES: None. FAMILY HISTORY: No history of heart disease or strokes in family. SOCIAL HISTORY: History of continued smoking. REVIEW OF SYSTEMS: ENT: Diminished hearing or vision. CARDIOVASCULAR: No angina or palpitations. RESPIRATORY: As mentioned earlier. GI no nausea or vomiting. : No dysuria or hematuria. NERVOUS SYSTEM: No numbness or weakness. ALLERGY/IMMUNOLOGY: No asthma or hayfever. MUSCULOSKELETAL as mentioned earlier. HEMATOLOGY/ONCOLOGY: No history of anemia. ENDOCRINE: As mentioned earlier. CONSTITUTIONAL: As mentioned earlier. DERMATOLOGY: Negative. RHEUMATOLOGY: Negative. PSYCHIATRY: As mentioned earlier. PHYSICAL EXAMINATION: GENERAL: Alert and oriented x3. VITAL SIGNS : Pulse 67, blood pressure 132/60, respiration 19, temperature 97.6, pulse ox 96% on room air. HEENT: Conjunctivae normal. Oral mucosa moist. NECK: No jugular venous distention. No carotid bruit. No lymph node enlargement. CARDIOVASCULAR SYSTEM: S1, S2 muffled. No S3, no S4. RESPIRATORY: Breath sounds diminished in the bases. A few scattered rhonchi and crackles. ABDOMEN: Soft, nontender. No mass palpable. LEGS: No edema. No swelling. NERVOUS SYSTEM: Higher functions as mentioned earlier, mild diffuse weakness on the right side present. Otherwise moves all other limbs. Gait dysfunction present. SKIN: No ulcer, rash or bleeding. LYMPHATICS: No lymph nodes palpable in the neck, axillae or groin. JOINTS: No active deforming arthropathy. LABS: WBC 9, hemoglobin 14.1, creatinine is 2.43 and CK-MB is 2.5. ASSESSMENT: 1. Weakness and gait dysfunction fall with possibly right-sided weakness, with possibly left-sided acute cerebrovascular accident. 2. Renal failure with creatinine 2.43 with acute renal failure possible acute prerenal renal failure. 3. Diabetes. 4. History of hypertension. 5. History of hyperlipidemia. 6. History of nicotine dependence. RECOMMENDATIONS AND DISCUSSION: In this 72-year-old gentleman who presented with multiple complex medical issues, we will monitor the patient closely. Continue the current medications and symptomatic treatment. Lipitor and aspirin has been initiated. Otherwise, we will continue to monitor and hold metformin and Cozaar and ibuprofen. We will repeat the labs. Cautious IV fluids. Neurology evaluation. Suicidal ideation and a psych evaluation. MRI brain and EEG also has been ordered. Prognosis guarded because of multiple complex medical issues and further recommendations to follow. MMODL / IJN: [id number] /
[2017-12-11] MEDS: SODIUM CHLORIDE 0.9% 1,000 ML IV SCH ×3 (01:54→21:03)
[2017-12-11 06:08] LABS: Glucose,Whole Blood 124 mg/dL (75-99)
[2017-12-11] MEDS: INSULIN ASPART 100 UNIT/ML 1 ML 10 ML VIAL SQ SCH ×4 (06:08→20:45)
[2017-12-11 07:29] LABS: Basophils # (A) 0.1 k/uL (0-0.2); Basophils % (A) 1 %; Eosinophils # (A) 0.3 k/uL (0-0.7); Eosinophils % (A) 4 %; HCT 39.3 % (39.0-53.0); HGB 13.2 gm/dL (13.0-17.5); Lymphocytes # (A) 1.1 k/uL (1.0-4.8); Lymphocytes % (A) 15 %; MCH 31.1 pg (25.0-35.0); MCHC 33.7 g/dL (31.0-37.0); MCV 92.2 fL (80.0-100.0); Mean Platelet Volume 6.7; Monocytes # (A) 0.5 k/uL (0-1.0); Monocytes % (A) 7 %; Neutrophils # (A) 5.5 k/uL (1.3-7.7); Neutrophils % (A) 72 %; Platelet Count 211 k/uL (150-450); RBC 4.26 m/uL (4.30-5.90); RDW 14.1 % (11.5-15.5); WBC 7.6 k/uL (3.8-10.6)
[2017-12-11 07:53] LABS: Calcium 9.2 mg/dL (8.4-10.2); Potassium 4.7 mmol/L (3.5-5.1)
[2017-12-11] MEDS: ASPIRIN 325 MG TAB PO SCH (08:10)
[2017-12-11] MEDS: amLODIPine 5 MG TAB PO SCH (08:11)
[2017-12-11 11:46] LABS: Glucose,Whole Blood 103 mg/dL (75-99)
[2017-12-11 12:06] LABS: Hemoglobin A1C 6.3 % (4.0-6.0)
--- NOTE | 2017-12-11 13:05 | MR ---
EXAMINATION TYPE: MR brain wo con DATE OF EXAM: 12/11/2017 12:41 PM COMPARISON: NONE HISTORY: Patient with bilateral leg weakness and falls FINDINGS: The ventricles, basal cisterns and sulci overlying the cerebral convexities are moderately enlarged. There is evidence of moderate periventricular white matter ischemic demyelination. Remote deep white matter insults are also noted. No acute edema is seen on diffusion weighted imaging. There is no evidence for midline shift or mass effect. Acute intracranial hemorrhage or extra-axial collection is not evident. The paranasal sinuses are well-aerated. Chronic mastoiditis bilateral mastoid sinuses. IMPRESSION: Age-related atrophic and chronic small vessel ischemic change. No acute intracranial process at this time.
--- NOTE | 2017-12-11 15:07 | ECHOF ---
Referral Reason:Thrombus MEASUREMENTS -------- HEIGHT: 175.3 cm WEIGHT: 100.2 kg BP: 119/57 IVSd: 1.4 cm (0.6 - 1.1) LVIDd: 3.9 cm (3.9 - 5.3) LVPWd: 1.0 cm (0.6 - 1.1) IVSs: 1.7 cm LVIDs: 2.4 cm LVPWs: 1.8 cm Ao Diam: 3.2 cm (2.0 - 3.7) LA Diam: 3.4 cm (2.7 - 3.8) AV Cusp: 1.4 cm (1.5 - 2.6) EPSS: 0.3 cm MV E Dusty: 1.00 m/s MV DecT: 251 ms MV A Dusty: 1.04 m/s MV E/A Ratio: 0.97 AV maxP.52 mmHg AV meanP.12 mmHg RAP: 5.00 mmHg RVSP: 18.23 mmHg MV EF SLOPE: 40.37 mm/s (70 - 150) MV EXCURSION: 16.66 mm (> 18.000) FINDINGS -------- Sinus rhythm. This was a technically good study. The left ventricular size is normal. There is mild concentric left ventricular hypertrophy. Overa ll left ventricular systolic function is normal with, an EF between 55 - 60 %. The right ventricle is normal in size and function. The left atrium is normal in size. The right atrium is normal in size. Aortic valve is trileaflet and is mildly thickened. There is mild aortic valve sclerosis. The mitral valve leaflets are mildly thickened. Mild mitral regurgitation is present. Mild tricuspid regurgitation present. The right ventricular systolic pressure, as measured by Doppl er, is 18.23mmHg. Pulmonic valve appears structurally normal. The aortic root size is normal. The pericardium is normal. CONCLUSIONS -------- 1. Sinus rhythm. 2. This was a technically good study. 3. The left ventricular size is normal. 4. There is mild concentric left ventricular hypertrophy. 5. Overall left ventricular systolic function is normal with, an EF between 55 - 60 %. 6. The right ventricle is normal in size and function. 7. The left atrium is normal in size. 8. The right atrium is normal in size. 9. Aortic valve is trileaflet and is mildly thickened. 10. There is mild aortic valve sclerosis. 11. The mitral valve leaflets are mildly thickened. 12. Mild mitral regurgitation is present. 13. Mild tricuspid regurgitation present. 14. The right ventricular systolic pressure, as measured by Doppler, is 18.23mmHg. 15. Pulmonic valve appears structurally normal. 16. The aortic root size is normal. 17. The pericardium is normal. EXECUTIVE DIRECTOR: Meseret May RDCS
[2017-12-11] MEDS: NICOTINE 21MG/24HR PATCH TRANSDERM SCH (15:38)
[2017-12-11 17:16] LABS: Glucose,Whole Blood 92 mg/dL (75-99)
--- NOTE | 2017-12-11 17:41 | P.CN ---
Psychiatric Consult - . Consult date: 12/11/17 Consult:: 12/11/17 17:24 Identification: Patient is a 72-year-old male who was admitted from the emergency room, patient had fallen and return to the emergency room confused. Reason for Consult: Depression, suicidal ideation History of Present Illness: Patient's chart was reviewed, the patient was seen and interviewed in his room no family members were present Patient states that he fell at home on Monday when his legs gave out and he came to the emergency room and was sent home. He states that he returned on Monday when he tripped on the ledge going into breakfast at a restaurant with a friend patient states that he was not feeling confused or lightheaded or dizzy. Patient reports no other symptoms prior to either of those incidents. Patient states that he is not depressed that he has been eating but doesn't drink much water drinks mostly diet soda. He reports that he does not have any suicidal ideation and has never made any suicide attempts. Patient states that he lives with his daughter and son-in-law and has since 1991. Patient states that he was not thinking of hurting himself, has never made any attempts and denies feeling depressed, hopeless, helpless or worthless. Patient states that he has never been treated for any psychiatric problems in the past. Patient states that he has no financial problems and reports that he cares for his own finances. Patient states he continues to drive and does have friends that he goes out with. Patient states that he has never attempted suicide and has never had any suicidal thoughts. After my visit with the patient nursing staff came to me and told me that the family was quite upset and states that the patient had verbalized planning to try to hang himself in the barn on January 03, is unclear what the significance of that date is. Patient family also states that he is been wiring money to someone. They state that he has not been himself, not caring for his personal hygiene as well as he has in the past. Patient's family was not present during the interview. Past Psychiatric History: Patient denies any prior history of psychiatric treatment either inpatient or outpatient and is never been placed on any psychotropic medication Past Medical/Surgical History: Patient has a history of diabetes, hypertension hyperlipidemia Family History: Patient denies that there is any family history of any psychiatric disorder, states her brother was a drug user and did overdose and states that he is unsure if this was a suicide attempt or just an accidental overdose. Social History: Patient's parents are both he has one sister and one brother were alive and one brother. States that he is in contact with his family members. Patient states that he was for 20 years and in 1991 and has 2 children from that marriage. States that she filed for divorce. Patient states he was remarried for 4 years and filed for divorce in 2003. Patient states that he lives with his daughter, since his divorce in 1991. He reported to me that she was living with him in his house per nursing staff patient's daughter states that it is her house and he lives in the basement. 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 He states he had multiple jobs and reports no current financial difficulty. When I confronted him about having a relationship with a woman over the Internet he did agree that he was doing so he refused to discuss whether he was wiring her money or not told me that it was not my business. Patient's family states that they think the relationship has been going on since August 2016. Substance Use History: Patient denies any alcohol use at this time and denies any drug use history. Patient does smoke tobacco products Mental status:Appearance/Attitude: Patient is dressed in a hospital gown, lying in bed in no acute distress, he was slightly hard of hearing and was cooperative Behavior: Patient did not exhibit any psychomotor agitation or retardation Speech/Language: Patient's speech was spontaneous, normal volume and rhythm and he was coherent Thought Process: Patient was goal-directed, he gave little elaboration and there was no evidence of loose association or flight of ideas Thought Content: Patient denied auditory or visual hallucinations no delusions or paranoid ideation were elicited. Patient states that he is not feeling depressed denied feeling hopeless or helpless did admit when I questioned him regarding his family's concerns about having a relationship with a woman over the Internet that he was doing so. He refused to discuss whether he was wiring money to this person or not stating he was not my business. When I confronted the patient regarding the family statements that he had threatened to hang himself in the barn on January 03 he stated that he had never made any of those kinds of statements. Patient states that he was sleeping at home and he was eating. Per the family the patient is not caring for his activities of daily living as he has in the past. Suicidal/Homicidal Ideation: Patient adamantly denied any current suicidal or homicidal ideation Sensorium/Cognition: Patient was alert and oriented to person, city, place and knew the month and year. Patient was also given a MOCA and scored 19 out of 30. Patient was able to recall only 1 word out of 5, was unable to do serial sevens after the first subtraction, could not name any words that began with the letter F, and had difficulty with abstraction. Patient was able to do trail making, draw a clock with correct time and copy a cube. Mood/Affect: Patient became irritable with me and quite upset with his family when I confronted him with what family had reported to nursing staff regarding his suicidal thoughts and to this woman, his at was appropriate to his mood Insight/Judgment: Patient's insight and judgment are fair Assessment: Patient's family is reporting that the patient has not been himself recently, has not been caring for his ADLs has been sending money to someone that he has a relationship with over the Internet and is also been verbalizing suicidal thoughts with a plan to hang himself on January 03. When confronted with this information the patient denies that he is ever made suicidal statements denies that he is feeling depressed and states that he has been having a relationship with someone over the Internet but refuses to discuss whether he is wired money to her not stating it's none of my business. Patient has no prior history of suicide attempts and no history of treatment for depression in the past. On neurocognitive testing the patient does score of 19 out of 30 and most of his difficulties were with language, abstraction, delayed recall and attention. Patient is not endorsing any symptoms of psychosis, anxiety and denies feeling depressed, hopeless, worthless. Patient does have evidence of a neurocognitive disorder and on his MRI there is evidence of atrophy as well as small vessel ischemia. Patient has no prior history of psychiatric treatment. Diagnosis: Neurocognitive disorder, mild unknown etiology; rule out depression Plan: Discussed the case with nursing staff and will continue the sitter at this time to observe the patient's behavior and whether or not he makes any suicidal statements. Patient is not showing any evidence of a psychotic process , he denies any current suicidal or homicidal ideation but does on testing show neurocognitive disorder. If the family is concerned regarding his ability to manage his funds then they should consider either becoming his payee or guardian. Will return to reevaluate the patient and assess whether treatment is needed at this time as patient is denying any symptoms of depression or suicide but the family is reporting that he has been making suicidal statements at home. 12/11/17 17:29
[2017-12-11] MEDS: ATORVASTATIN 40 MG TAB PO SCH (19:29)
[2017-12-11 20:45] LABS: Glucose,Whole Blood 127 mg/dL (75-99)
--- NOTE | 2017-12-12 00:33 | P.PN ---
Subjective Progress Note Date: 12/11/17 This patient is a 72-year-old male who was admitted to Hospital with symptoms of bilateral leg weakness and possible stroke. Patient presented with some right-sided weakness suggesting possibility of acute left hemispheric stroke. Patient was able to complete a MRI of the brain today which revealed age related atrophy and chronic small vessel ischemic changes. No evidence of acute intracranial process was noted. The patient was also evaluated by psychiatry as he was having symptoms of suicidal ideation and depression. He was seen by psychiatrist today and has some features of neurocognitive disorder. He underwent routine EEG today which will be reviewed. His carotid Doppler study was completed yesterday and revealed right ICA stenosis of 5069 percent. The patient is resting comfortably in bed. He does have a sitter at bedside. He is able to follow simple commands. We reviewed the results of his MRI of the brain today with him in detail. We will continue close neurological follow-up for the patient during this admission. We have recommended the patient undergo routine EEG which is not been completed today. We will await tomorrow to see if this can be done. In the meantime he is to continue current treatment plans. Overall prognosis at this time remains guarded. Objective - Vital Signs Vital signs: Vital Signs Temp 97.8 F 12/11/17 19:31 Pulse 71 12/11/17 19:32 Resp 19 12/11/17 19:32 BP 162/75 12/11/17 19:31 Pulse Ox 100 12/11/17 19:31 Intake & Output 12/11/17 12/11/17 12/12/17 06:59 18:59 06:59 Intake Total 800 1280 Output Total 800 0 Balance 0 1280 Weight 100.5 kg Intake: Intake, IV Titration 800 1100 Amount Sodium Chloride 0.9% 1, 800 1100 000 ml @ 100 mls/hr IV . Q10H [facility] Rx#:[id number] Oral 180 Output: Urine 800 0 Other: Voiding Method Urinal Urinal # Voids 2 - Exam Physical examination: PHYSICAL EXAMINATION: Patient is resting comfortably in bed. VITAL SIGNS: Blood pressure is [162/75]. Heart rate is [71]. Respiration is [19] . Temperature is [97.8]. HEENT: Head is atraumatic, neck is supple, there were no carotid bruits. CHEST: Lungs are clear to auscultation and percussion. CARDIAC: S1, S2 normal rate and rhythm. There is no murmur. ABDOMEN: Soft and nontender. Bowel sounds are present. EXTREMITIES: There is no pedal edema. Peripheral pulses are present. Neurological examination: Patient has a nonfocal neurological examination. He does have a sitter at bedside. Patient denies any new symptoms today. He has not shown any aggressive behavior. - Labs CBC & Chem 7: 12/11/17 06:10 12/11/17 06:10 Labs: Abnormal Lab Results - Last 24 Hours (Table) 12/10/17 12/11/17 12/11/17 Range/Units 12:05 06:07 06:10 RBC (4.30-5.90) m/uL Chloride 110 H (98-107) mmol/L Carbon Dioxide 21 L (22-30) mmol/L BUN 35 H (9-20) mg/dL Creatinine 1.88 H (0.66-1.25) mg/dL Glucose 104 H (74-99) mg/dL POC Glucose (mg/dL) 124 H (75-99) mg/dL Hemoglobin A1c 6.3 H (4.0-6.0) % HDL Cholesterol 28 L (40-60) mg/dL 12/11/17 12/11/17 12/11/17 Range/Units 06:10 11:41 20:44 RBC 4.26 L (4.30-5.90) m/uL Chloride (98-107) mmol/L Carbon Dioxide (22-30) mmol/L BUN (9-20) mg/dL Creatinine (0.66-1.25) mg/dL Glucose (74-99) mg/dL POC Glucose (mg/dL) 103 H 127 H (75-99) mg/dL Hemoglobin A1c (4.0-6.0) % HDL Cholesterol (40-60) mg/dL Assessment and Plan (1) Left acute arterial ischemic stroke, MCA (middle cerebral artery) Current Visit: Yes Status: Acute Code(s): I63.512 - CEREB INFRC D/T UNSP OCCLS OR STENOS OF LEFT MID CEREB ART SNOMED Code(s): 486610157 (2) Suicidal ideation Current Visit: Yes Status: Acute Code(s): R45.851 - SUICIDAL IDEATIONS SNOMED Code(s): 8055973 (3) Fall Current Visit: No Status: Acute Code(s): W19.XXXA - UNSPECIFIED FALL, INITIAL ENCOUNTER SNOMED Code(s): 2768941 (4) Dehydration Current Visit: No Status: Acute Code(s): E86.0 - DEHYDRATION SNOMED Code(s ): 65296017 (5) Orthostatic lightheadedness Current Visit: No Status: Acute Code(s): R42 - DIZZINESS AND GIDDINESS SNOMED Code(s): 78505851 Plan: This patient is being evaluated for symptoms of possible TIA. He underwent MRI of the brain today the results of which are noted above. There is no evidence of acute stroke on the MRI of the brain. He was seen by psychiatry today as well as he has had some symptoms of suicidal ideation. He does have evidence of neurocognitive disorder and may have early signs of dementia. He may require further workup as outpatient. He underwent carotid Doppler study yesterday which revealed significant stenosis of the right internal carotid artery of 5069 percent. Patient otherwise seems to be doing fairly well. We will continue close neurological follow-up for the patient.
[2017-12-12] MEDS: SODIUM CHLORIDE 0.9% 1,000 ML IV SCH (05:41)
[2017-12-12 05:50] LABS: Glucose,Whole Blood 117 mg/dL (75-99)
[2017-12-12] MEDS: INSULIN ASPART 100 UNIT/ML 1 ML 10 ML VIAL SQ SCH ×2 (05:53→12:41)
[2017-12-12 07:13] LABS: Basophils # (A) 0.1 k/uL (0-0.2); Basophils % (A) 1 %; Eosinophils # (A) 0.3 k/uL (0-0.7); Eosinophils % (A) 5 %; HCT 40.7 % (39.0-53.0); HGB 13.5 gm/dL (13.0-17.5); Lymphocytes # (A) 1.1 k/uL (1.0-4.8); Lymphocytes % (A) 17 %; MCH 30.3 pg (25.0-35.0); MCHC 33.1 g/dL (31.0-37.0); MCV 91.7 fL (80.0-100.0); Mean Platelet Volume 6.9; Monocytes # (A) 0.4 k/uL (0-1.0); Monocytes % (A) 6 %; Neutrophils # (A) 4.4 k/uL (1.3-7.7); Neutrophils % (A) 69 %; Platelet Count 209 k/uL (150-450); RBC 4.44 m/uL (4.30-5.90); RDW 14.3 % (11.5-15.5); WBC 6.4 k/uL (3.8-10.6)
[2017-12-12 07:27] LABS: Calcium 9.4 mg/dL (8.4-10.2); Potassium 4.6 mmol/L (3.5-5.1)
[2017-12-12 07:29] VITALS: RESP 18
[2017-12-12] MEDS: ASPIRIN 325 MG TAB PO SCH (07:31)
[2017-12-12] MEDS: NICOTINE 21MG/24HR PATCH TRANSDERM SCH (07:31)
[2017-12-12] MEDS: amLODIPine 5 MG TAB PO SCH (07:31)
--- NOTE | 2017-12-12 10:53 | PN ---
PROGRESS NOTE DATE OF SERVICE: 12/11/2017 This 72-year-old gentleman admitted with confusion, suicidal ideation, weakness and fall is being closely monitored. The MRI has been done today which showed age-related changes and no acute abnormalities noted. No chest pain or palpitation. No fever. PHYSICAL EXAMINATION: On exam, alert and oriented x3, pulse is 71, blood pressure 162/75, respiration 19, temperature 97.8, pulse ox 100% on room air. HEENT: Conjunctivae normal. Oral mucosa moist. Neck is no jugular venous distention. No carotid bruit. No lymph node enlargement. CARDIOVASCULAR: S1 and S2 muffled. RESPIRATORY: Breath sounds diminished at the bases. No rhonchi, no crackles. ABDOMEN: Soft, nontender. NERVOUS SYSTEM: Mild diffuse weakness. LABS: Creatinine is 1.88. Otherwise, MRI noted. A 2D echo with Doppler showed ejection fraction of 55% to 60% and the carotid Doppler was also done which showed right 50% to 69% carotid stenosis. ASSESSMENT: 1. Weakness with gait dysfunction with possible right-sided weakness with possible left-sided acute cerebrovascular accident. 2. Right carotid stenosis 50% to 69%. 3. Renal failure with creatinine 2.43, possibly acute on chronic kidney disease, chronic kidney disease stage III baseline. 4. Diabetes mellitus type 2. 5. Hypertension. 6. Hyperlipidemia. 7. History of nicotine dependence. RECOMMENDATIONS AND DISCUSSION: Recommend to continue current medications, continue symptomatic treatment. Otherwise continue with hydration, repeat labs. Closely monitor with multiple consultants. Prognosis guarded. Discussed with family at length and further recommendations will follow. We will also recommend vascular consultation as well. MMODL / IJN: [id number] /
[2017-12-12 11:10] VITALS: BP 139/75; PULSE 68; TEMP 96.8
[2017-12-12 11:53] LABS: Glucose,Whole Blood 90 mg/dL (75-99)
--- NOTE | 2017-12-12 15:11 | CONS ---
DATE OF CONSULTATION: 12/12/2017 This is a 72-year-old gentleman who has been admitted with history of bilateral leg swelling and weakness. Patient came with some right-sided weakness suggestive of a left hemispheric stroke. Patient completed MRI of the brain which revealed age- related atrophy and small-vessel ischemic changes. There is no evidence of intracranial hemorrhage and he was also seen by psychiatrist and he was having symptoms of suicidal ideation and depression. Patient had a carotid ultrasound study today which showed right side 50%-69% stenosis. PHYSICAL EXAMINATION: Patient was seen in his room. Neck is supple. Trachea is central. Chest is clear to auscultation. Abdomen is soft, nontender. Vascular examination, brachial radial femoral pulses are present. Patient's motor functions are normal for upper and lower extremity. The patient is on antiplatelet therapy. IMPRESSION: Right carotid stenosis 50% - 69%. Motor functions are intact for upper and lower extremity. At this point, there is no role of surgical intervention. Patient is under care of Neurology and Internal Medicine. If patient goes home, I will follow in my office. RODRICKL / YOANDYN: [id number] / SERGIO
--- NOTE | 2017-12-12 17:17 | DS ---
DISCHARGE SUMMARY DATE OF SERVICE: 12/12/2017. FINAL DIAGNOSES: 1. Weakness and gait dysfunction with possible right-sided weakness and possibly caused left-sided acute cerebrovascular accident. 2. Right carotid stenosis 50-69%. 3. Renal failure with creatinine 2.43, possible acute on chronic kidney disease with chronic kidney stage III baseline. 4. Diabetes mellitus type 2. 5. Hypertension. 6. Hyperlipidemia. 7. History of nicotine dependence. DISCHARGE DISPOSITION: The patient will be discharged in stable condition with guarded prognosis. Discharge cleared by multiple consultants. Stable overall prognosis guarded. Total time taken 35 minutes. HISTORY OF PRESENT ILLNESS: This 72-year-old gentleman with a past medical history of multiple medical problems, admitted with features of stroke and multiple other medical problems, treated symptomatically. Vascular Surgery and Neurology saw the patient. Psychiatry also saw the patient and 2D echo was noted. On exam, vital signs are stable. CARDIOVASCULAR: S1, S2 ABDOMEN: Soft. NERVOUS SYSTEM: Mild diffuse weakness. DISCHARGE ADVICE AND MEDICATIONS: 1. Diet is cardiac. 2. Activity limited until followup. 3. Follow up with Dr. Wilmer Garcia 2-3 days. 4. Follow with Dr. Lottie Dumont and Dr. Trinh as advised. MEDICATIONS: 1. Norvasc 5 mg p.o. daily. 2. Lipitor 40 mg q.h.s. 3. Hydrocodone 1 tablet every 6 hours p.r.n. 4. Ecotrin 81 mg p.o. daily. 5. Habitrol 21 daily. MMODL / IJN: [id number] /
--- NOTE | 2017-12-12 21:44 | EEG ---
ELECTROENCEPHALOGRAM REPORT DATE OF EE12/12/2017. REFERRING PHYSICIAN: Dr. Wilmer Garcia. CONSULTING/INTERPRETING PHYSICIAN: Dr. Arabella Dumont MD ELECTROENCEPHALOGRAPHIC EXAMINATION REPORT: INDICATION FOR EXAMINATION: This patient is a 72-year-old male being evaluated for TIA and recent fall. AGE: [age]. EEG FINDINGS: A routine 21 channel awake digital EEG recording was accomplished utilizing the 10-20 international system with bipolar and referential montages. The background activity in the most alert resting state consists of a low to medium amplitude, fairly well- developed and well sustained 7-8 Hz activity over the posterior head regions. This posterior rhythm attenuates to eye opening. There is a small amount of low amplitude 18-20 Hz beta activity seen maximally over the anterior head regions. Muscle and movement artifact was observed on a few occasions during the tracing. Hyperventilation was not performed. Photic stimulation at flash frequencies of 2-30 Hz produced a good symmetrical occipital driving response. No epileptiform discharges were seen. IMPRESSION: This EEG is normal for the patient's age. The EEG failed to reveal any focal, lateralized, or epileptiform abnormalities. Clinical correlation is recommended. MMODL / IJN: [id number] /
--- NOTE | 2017-12-13 09:38 | P.PN ---
Subjective Progress Note Date: 12/12/17 This patient is a 72-year-old male who was admitted to Hospital with symptoms of bilateral leg weakness and possible stroke. Patient presented with some right-sided weakness suggesting possibility of acute left hemispheric stroke. Patient was able to complete a MRI of the brain today which revealed age related atrophy and chronic small vessel ischemic changes. No evidence of acute intracranial process was noted. The patient was also evaluated by psychiatry as he was having symptoms of suicidal ideation and depression. He was seen by psychiatrist today and has some features of neurocognitive disorder. He underwent routine EEG today which will be reviewed. His carotid Doppler study was completed yesterday and revealed right ICA stenosis of 5069 percent. The patient is resting comfortably in bed. He does have a sitter at bedside. He is able to follow simple commands. We reviewed the results of his MRI of the brain today with him in detail. We will continue close neurological follow-up for the patient during this admission. We have recommended the patient undergo routine EEG which is not been completed today. We will await tomorrow to see if this can be done. In the meantime he is to continue current treatment plans. Overall prognosis at this time remains guarded. Objective - Vital Signs Vital signs: Vital Signs Temp 96.8 F L 12/12/17 11:08 Pulse 68 12/12/17 11:08 Resp 18 12/12/17 11:13 BP 139/75 12/12/17 11:08 Pulse Ox 99 12/12/17 11:08 Intake & Output 12/11/17 12/12/17 12/12/17 18:59 06:59 18:59 Intake Total 1280 800 118 Output Total 0 Balance 1280 800 118 Weight 97.3 kg Intake: Intake, IV Titration 1100 800 Amount Sodium Chloride 0.9% 1, 1100 800 000 ml @ 100 mls/hr IV . Q10H [facility] Rx#:[id number] Oral 180 118 Output: Urine 0 Other: Voiding Method Urinal Urinal Toilet Urinal # Voids 3 - Exam Physical examination: PHYSICAL EXAMINATION: Patient is resting comfortably in bed. VITAL SIGNS: Blood pressure is [139/75]. Heart rate is [68]. Respiration is [18] . Temperature is [96.8]. HEENT: Head is atraumatic, neck is supple, there were no carotid bruits. CHEST: Lungs are clear to auscultation and percussion. CARDIAC: S1, S2 normal rate and rhythm. There is no murmur. ABDOMEN: Soft and nontender. Bowel sounds are present. EXTREMITIES: There is no pedal edema. Peripheral pulses are present. Neurological examination: Patient has a nonfocal neurological examination. He does have a sitter at bedside. Patient denies any new symptoms today. He has not shown any aggressive behavior. - Labs CBC & Chem 7: 12/12/17 06:12 12/12/17 06:12 Labs: Abnormal Lab Results - Last 24 Hours (Table) 12/11/17 12/12/17 12/12/17 Range/Units 20:44 05:49 06:12 Chloride 110 H (98-107) mmol/L Carbon Dioxide 20 L (22-30) mmol/L BUN 25 H (9-20) mg/dL Creatinine 1.30 H (0.66-1.25) mg/dL Glucose 110 H (74-99) mg/dL POC Glucose (mg/dL) 127 H 117 H (75-99) mg/dL Assessment and Plan (1) Left acute arterial ischemic stroke, MCA (middle cerebral artery) Status: Acute Code(s): I63.512 - CEREB INFRC D/T UNSP OCCLS OR STENOS OF LEFT MID CEREB ART SNOMED Code(s): 149172787 (2) Suicidal ideation Status: Acute Code(s): R45.851 - SUICIDAL IDEATIONS SNOMED Code(s): 1919766 (3) Fall Status: Acute Code(s): W19.XXXA - UNSPECIFIED FALL, INITIAL ENCOUNTER SNOMED Code(s): 5111056 (4) Dehydration Status: Acute Code(s): E86.0 - DEHYDRATION SNOMED Code(s): 71841611 (5) Orthostatic lightheadedness Status: Acute Code(s): R42 - DIZZINESS AND GIDDINESS SNOMED Code(s): 62974710 Plan: This patient is being evaluated for symptoms of possible TIA. He underwent MRI of the brain today the results of which are noted above. There is no evidence of acute stroke on the MRI of the brain. He was seen by psychiatry today as well as he has had some symptoms of suicidal ideation. He does have evidence of neurocognitive disorder and may have early signs of dementia. He may require further workup as outpatient. He underwent carotid Doppler study yesterday which revealed significant stenosis of the right internal carotid artery of 5069 percent. Patient otherwise seems to be doing fairly well. His EEG was reviewed and was within normal limits with no epilepitform discharges. Possible discharge home soon. We will continue close neurological follow-up for the patient.
== END 2017-12-12 15:19 | disposition home or self-care (01) | DRG 65 ==
LOC: EC 10:47 → 6SEL 13:48
PROVIDERS: ADMIT Family Medicine; ATTEND Family Medicine
DX: I63.9 Cerebral infarction, unspecified (principal); G81.91 Hemiplegia, unspecified affecting right dominant side; R45.851 Suicidal ideations; N17.9 Acute kidney failure, unspecified; E11.22 Type 2 diabetes mellitus with diabetic chronic kidney disease; E86.0 Dehydration; N18.3 Chronic kidney disease, stage 3 (moderate); R40.2362 Coma scale, best motor response, obeys commands, at arrival to emergency department; R40.2142 Coma scale, eyes open, spontaneous, at arrival to emergency department; R40.2252 Coma scale, best verbal response, oriented, at arrival to emergency department; R29.702 NIHSS score 2; R47.81 Slurred speech; R41.9 Unspecified symptoms and signs involving cognitive functions and awareness; R26.9 Unspecified abnormalities of gait and mobility; I65.21 Occlusion and stenosis of right carotid artery; I12.9 Hypertensive chronic kidney disease with stage 1 through stage 4 chronic kidney disease, or unspecified chronic kidney disease; E78.5 Hyperlipidemia, unspecified; H91.90 Unspecified hearing loss, unspecified ear; F17.200 Nicotine dependence, unspecified, uncomplicated; Z71.6 Tobacco abuse counseling; Z79.899 Other long term (current) drug therapy; W19.XXXA Unspecified fall, initial encounter; Y92.009 Unspecified place in unspecified non-institutional (private) residence as the place of occurrence of the external cause; Z81.3 Family history of other psychoactive substance abuse and dependence
CPT/HCPCS: 36415; 70450; 70551; 71046; 80048; 80053; 80061; 81003; 82550; 82553; 83036; 84484; 85025; 85610; 85730; 93005; 93306; 93880; 95816; 99285

== ENCOUNTER 2019-02-27 19:38 | Emergency (ER) | payer MEDICARE ==
[2019-02-27 19:44] VITALS: BP 180/82; PULSE 71; RESP 18; TEMP 97.9
--- NOTE | 2019-02-27 20:26 | XR ---
EXAMINATION TYPE: XR chest 2V DATE OF EXAM: 02/27/2019 COMPARISON: 12/10/2017 HISTORY: Rib pain TECHNIQUE: Frontal and lateral views of the chest are obtained. FINDINGS: Heart and mediastinum are normal. Lungs are clear. Diaphragm is normal. Bony thorax is int act. IMPRESSION: Normal chest. No adverse change compared to old exam.
--- NOTE | 2019-02-27 20:52 | ED ---
Fall HPI - General Chief Complaint: Fall Stated Complaint: fall/rib pain Time Seen by Provider: 02/27/19 19:49 Source: patient Mode of arrival: ambulatory - History of Present Illness Initial Comments: Patient is a 73-year-old male presenting to the emergency department with a chief complaint of a fall. Patient reports he was at home when he slipped and fell forward and attempted to brace himself with his left arm. Patient denies any pain but does report left-sided chest wall pain in the left flank pain. Patient reports the pain is exacerbated at full inspiration and alleviated when taking small breaths. Patient denies any shortness of breath. Patient denies any head trauma. Patient denies any headaches or blurry vision at this time. Patient denies taking any medication to the symptoms. Patient is not blood thinners. - Related Data Home Medications Medication Instructions Recorded Confirmed Atorvastatin [Lipitor] 40 mg PO HS 12/08/17 12/10/17 amLODIPine [Norvasc] 5 mg PO DAILY 12/08/17 12/10/17 HYDROcodone/APAP 10-325MG [Isabella 1 tab PO Q6HR PRN 12/10/17 12/10/17 10-325] Previous Rx's Medication Instructions Recorded Aspirin EC [Ecotrin Low Dose] 81 mg PO DAILY #30 tablet. 12/12/17 Nicotine 21Mg/24Hr Patch [Habitrol] 1 patch TRANSDERM DAILY #30 patch 12/12/17 Allergies Allergy/AdvReac Type Severity Reaction Status Date / Time No Known Allergies Allergy Verified 12/10/17 14:21 Review of Systems ROS Statement: Those systems with pertinent positive or pertinent negative responses have been documented in the HPI. ROS Other: All systems not noted in ROS Statement are negative. Past Medical History Past Medical History: Diabetes Mellitus, Hyperlipidemia, Hypertension History of Any Multi-Drug Resistant Organisms: None Reported Past Surgical History: Tonsillectomy Additional Past Surgical History / Comment(s): mole removal Past Anesthesia/Blood Transfusion Reactions: No Reported Reaction Past Psychological History: No Psychological Hx Reported Smoking Status: Current every day smoker Past Alcohol Use History: None Reported Past Drug Use History: None Reported - Past Family History Sister(s) History Unknown: Yes General Exam Limitations: no limitations General appearance: alert, in no apparent distress Head exam: Present: atraumatic, normocephalic, normal inspection. Absent: other (Negative periorbital Ecchymosis, negative Smart sign, negative) Eye exam: Present: normal appearance, PERRL, EOMI Pupils: Present: normal accommodation ENT exam: Present: normal exam, mucous membranes moist, normal external ear exam Neck exam: Present: normal inspection, full ROM. Absent: tenderness Respiratory exam: Present: normal lung sounds bilaterally, chest wall tenderness (Left chest wall tenderness with palpation) Cardiovascular Exam: Present: regular rate, normal rhythm, normal heart sounds Extremities exam: Present: normal inspection. Absent: full ROM (Slight decrease in range of motion in the left shoulder.) Back exam: Present: normal inspection, full ROM, tenderness (Left flank tenderness) Neurological exam: Present: alert, oriented X3 Psychiatric exam: Present: normal affect, normal mood Skin exam: Present: warm, intact, normal color Course Vital Signs 02/27/19 19:40 Temperature 97.9 F Pulse Rate 71 Respiratory 18 Rate Blood Pressure 180/82 O2 Sat by Pulse 99 Oximetry Medical Decision Making - Medical Decision Making Patient is a 73-year-old male presenting to the emergency department with a chief complaint of a fall. Patient reports he was at his house when he tripped and fell forward and injuring mostly the left side of his body. Patient reports most of the pain is located on the left chest wall in the left flank region. Patient reports the pain is exacerbated with full inspiration. I suspect this to be is a result due to an expanding chest cavity and not a pneumothorax. Chest x-ray is unremarkable for any fractures or pneumo. No visible signs of trauma are noted on physical examination in the region of tenderness. Strict return parameters were thoroughly discussed with patient was understanding and agreeable. Case discussed with physician. Disposition Clinical Impression: Fall Disposition: HOME SELF-CARE Condition: Stable Instructions (If sedation given, give patient instructions): Fall Prevention (ED) Additional Instructions: Alternate between Tylenol and ibuprofen for pain control. Please follow with primary care. Please return to emergency department is symptoms worsen. Is patient prescribed a controlled substance at d/c from ED?: No Referrals: Wilmer Garcia MD [Primary Care Provider] - 1-2 days Time of Disposition: 20:50
== END 2019-02-27 21:04 | disposition home or self-care (01) ==
LOC: EC 19:38
DX: R07.1 Chest pain on breathing (principal); R10.9 Unspecified abdominal pain; F17.200 Nicotine dependence, unspecified, uncomplicated; E78.5 Hyperlipidemia, unspecified; I10 Essential (primary) hypertension; Z79.899 Other long term (current) drug therapy; W01.0XXA Fall on same level from slipping, tripping and stumbling without subsequent striking against object, initial encounter; Y92.009 Unspecified place in unspecified non-institutional (private) residence as the place of occurrence of the external cause
CPT/HCPCS: 71046; 99283

== ENCOUNTER 2019-10-09 11:11 | Inpatient (IN) | payer MEDICARE ==
[2019-10-09 11:50] LABS: Basophils % (A) 0 %; Eosinophils # (A) 0.1 k/uL (0-0.7); Eosinophils % (A) 2 %; HCT 39.1 % (39.0-53.0); HGB 12.8 gm/dL (13.0-17.5); Lymphocytes # (A) 0.8 k/uL (1.0-4.8); Lymphocytes % (A) 10 %; MCH 31.6 pg (25.0-35.0); MCHC 32.8 g/dL (31.0-37.0); MCV 96.3 fL (80.0-100.0); Mean Platelet Volume 7.4; Monocytes # (A) 0.4 k/uL (0-1.0); Monocytes % (A) 5 %; Neutrophils # (A) 6.1 k/uL (1.3-7.7); Neutrophils % (A) 81 %; Platelet Count 235 k/uL (150-450); RBC 4.06 m/uL (4.30-5.90); RDW 13.6 % (11.5-15.5); WBC 7.5 k/uL (3.8-10.6)
--- NOTE | 2019-10-09 11:55 | CT ---
EXAMINATION TYPE: CT brain wo con DATE OF EXAM: 10/09/2019 COMPARISON: 12/10/2017 HISTORY: Lt side weakness CT DLP: [address] of the brain was performed. The ventricles, basal cisterns and sulci overlying the cerebral convexities demonstrate mild enlargem ent. There is no evidence for intracranial hemorrhage or sulcal effacement. There is decreased attenuation about the periventricular white matter and deep white matter of both c erebral hemispheres, compatible with chronic small vessel ischemia. Differential diagnosis does inclu de demyelination. No mass effects are seen.No midline shift. Osseous calvarium is intact. If symptoms persist consider MRI. IMPRESSION: 1. Age related atrophic and chronic small vessel ischemic change without acute intracranial process s een at this time.
--- NOTE | 2019-10-09 12:00 | ED ---
Neuro HPI - General Chief Complaint: Neuro Symptoms/Deficit Stated Complaint: left arm & leg numbness Time Seen by Provider: 10/09/19 11:15 Source: patient Mode of arrival: wheelchair Limitations: physical limitation - History of Present Illness Is the patient presenting with stroke symptoms?: Yes Initial Comments: The patient is a 74-year-old male with past medical history of hypertension, hyperlipidemia and diabetes who presents emergency room with reported left upper and lower extremity weakness. Patient reports his symptoms started around 77 30 this morning. Get acute onset of left upper and lower extremity weakness. Family also reports that he was confused. He went to sit outside in his car to talk to a friend's. He was on the phone when he sustained a fall, stating that he "feels as if he doesn't have any control over his arm or leg." He fell and hit his left hand and sustained abrasions. Patient also has an abrasion noted to the right side of his face even though he denies head injury. Family does a dmit that the confusion appears somewhat improved. He was resistant to come into the emergency room for evaluation. He has a history of previous CVA in 2018 without residual deficits. He said to full dose aspirins this morning. Denies any headaches or visual changes. No speech difficulty. No abdominal pain. There are no other alleviating, precipitating or modifying factors - Related Data Home Medications: Home Medications Medication Instructions Recorded Confirmed Atorvastatin [Lipitor] 40 mg PO DAILY 12/08/17 10/09/19 amLODIPine [Norvasc] 5 mg PO DAILY 12/08/17 10/09/19 HYDROcodone/APAP 10-325MG [[place] 1 tab PO QID 12/10/17 10/09/19 10-325] Ibuprofen [Motrin] 800 mg PO TID PRN 10/09/19 10/09/19 Losartan Potassium [Cozaar] 100 mg PO DAILY 10/09/19 10/09/19 metFORMIN HCL 1,000 mg PO BID-W/MEALS 10/09/19 10/09/19 Allergies/Adverse Reactions: Allergies Allergy/AdvReac Type Severity Reaction Status Date / Time No Known Allergies Allergy Verified 10/09/19 12:44 Review of Systems ROS Statement: Those systems with pertinent positive or pertinent negative responses have been documented in the HPI. ROS Other: All systems not noted in ROS Statement are negative. General Exam Limitations: no limitations General appearance: alert, in no apparent distress Head exam: Present: atraumatic, normocephalic, normal inspection Eye exam: Present: normal appearance, PERRL, EOMI. Absent: scleral icterus, co njunctival injection, periorbital swelling ENT exam: Present: normal exam, mucous membranes moist Neck exam: Present: normal inspection. Absent: tenderness, meningismus, lymphadenopathy Respiratory exam: Present: normal lung sounds bilaterally. Absent: respiratory distress, wheezes, rales, rhonchi, stridor Cardiovascular Exam: Present: regular rate, normal rhythm, normal heart sounds. Absent: systolic murmur, diastolic murmur, rubs, gallop, clicks GI/Abdominal exam: Present: soft, normal bowel sounds. 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 Left leg drift. No facial droop, slurred speech or loss of sensation). Absent: tenderness, pedal edema, joint swelling, calf tenderness Back exam: Present: normal inspection Neurological exam: Present: alert, oriented X3, CN II-XII intact Psychiatric exam: Present: normal affect, normal mood Skin exam: Present: warm, dry, abrasion (dorsal left hand). Absent: rash Stroke MDM - Lab Data Result diagrams: 10/10/19 05:45 10/10/19 05:45 Lab Results 10/09/19 10/09/19 10/09/19 Range/Units 11:34 11:34 11:34 WBC 7.5 (3.8-10.6) k/uL RBC 4.06 L (4.30-5.90) m/uL Hgb 12.8 L (13.0-17.5) gm/dL Hct 39.1 (39.0-53.0) % MCV 96.3 (80.0-100.0) fL MCH 31.6 (25.0-35.0) pg MCHC 32.8 (31.0-37.0) g/dL RDW 13.6 (11.5-15.5) % Plt Count 235 (150-450) k/uL Neutrophils % 81 % Lymphocytes % 10 % Monocytes % 5 % Eosinophils % 2 % Basophils % 0 % Neutrophils # 6.1 (1.3-7.7) k/uL Lymphocytes # 0.8 L (1.0-4.8) k/uL Monocytes # 0.4 (0-1.0) k/uL Eosinophils # 0.1 (0-0.7) k/uL Basophils # 0.0 (0-0.2) k/uL PT 10.2 (9.0-12.0) sec INR 1.0 (<1.2) APTT 23.8 (22.0-30.0) sec Sodium 138 (137-145) mmol/L Potassium 5.1 (3.5-5.1) mmol/L Chloride 107 (98-107) mmol/L Carbon Dioxide 19 L (22-30) mmol/L Anion Gap 12 mmol/L BUN 42 H (9-20) mg/dL Creatinine 2.53 H (0.66-1.25) mg/dL Est GFR (CKD-EPI)AfAm 28 (>60 ml/min/1.73 sqM) Est GFR (CKD-EPI)NonAf 24 (>60 ml/min/1.73 sqM) Glucose 93 (74-99) mg/dL Calcium 9.3 (8.4-10.2) mg/dL Total Bilirubin 0.5 (0.2-1.3) mg/dL AST 14 L (17-59) U/L ALT 17 (4-49) U/L Alkaline Phosphatase 84 (38-126) U/L Troponin I (0.000-0.034) ng/mL Total Protein 7.1 (6.3-8.2) g/dL Albumin 4.4 (3.5-5.0) g/dL Urine Color Urine Appearance (Clear) Urine pH (5.0-8.0) Ur Specific [place] (1.001-1.035) Urine Protein (Negative) Urine Glucose (UA) (Negative) Urine Ketones (Negative) Urine Blood (Negative) Urine Nitrite (Negative) Urine Bilirubin (Negative) Urine Urobilinogen (<2.0) mg/dL Ur Leukocyte Esterase (Negative) Coronavirus (PCR) (Not Detected) 10/09/19 10/09/19 10/09/19 Range/Units 11:34 13:15 13:15 WBC (3.8-10.6) k/uL RBC (4.30-5.90) m/uL Hgb (13.0-17.5) gm/dL Hct (39.0-53.0) % MCV (80.0-100.0) fL MCH (25.0-35.0) pg MCHC (31.0-37.0) g/dL RDW (11.5-15.5) % Plt Count (150-450) k/uL Neutrophils % % Lymphocytes % % Monocytes % % Eosinophils % % Basophils % % Neutrophils # (1.3-7.7) k/uL Lymphocytes # (1.0-4.8) k/uL Monocytes # (0-1.0) k/uL Eosinophils # (0-0.7) k/uL Basophils # (0-0.2) k/uL PT (9.0-12.0) sec INR (<1.2) APTT (22.0-30.0) sec Sodium (137-145) mmol/L Potassium (3.5-5.1) mmol/L Chloride (98-107) mmol/L Carbon Dioxide (22-30) mmol/L Anion Gap mmol/L BUN (9-20) mg/dL Creatinine (0.66-1.25) mg/dL Est GFR (CKD-EPI)AfAm (>60 ml/min/1.73 sqM) Est GFR (CKD-EPI)NonAf (>60 ml/min/1.73 sqM) Glucose (74-99) mg/dL Calcium (8.4-10.2) mg/dL Total Bilirubin (0.2-1.3) mg/dL AST (17-59) U/L ALT (4-49) U/L Alkaline Phosphatase (38-126) U/L Troponin I 0.022 (0.000-0.034) ng/mL Total Protein (6.3-8.2) g/dL Albumin (3.5-5.0) g/dL Urine Color Light Yellow Urine Appearance Clear (Clear) Urine pH 5.0 (5.0-8.0) Ur Specific [place] 1.012 (1.001-1.035) Urine Protein Trace H (Negative) Urine Glucose (UA) Negative (Negative) Urine Ketones Negative (Negative) Urine Blood Negative (Negative) Urine Nitrite Negative (Negative) Urine Bilirubin Negative (Negative) Urine Urobilinogen <2.0 (<2.0) mg/dL Ur Leukocyte Esterase Negative (Negative) Coronavirus (PCR) Not Detected (Not Detected) - Medical Decision Making Upon arrival the patient is placed into room 11. A thorough history and physical exam was performed. The patient does arrive with left-sided weakness that was present since 7 AM this morning. He is not a TPA candidate however I did activate a code stroke. I discussed the case with Dr. Camacho who recommended CT angiography and CT brain. The patient was immediately taken for imaging. He does return and laboratory studies were conducted. CMP is [place] for a creatinine of 2.5. This is elevated from the patient's baseline of 1.3. He was given gentle fluid hydration at [address] brain demonstrates age-related atrophic and chronic small vessel ischemic change without acute intracranial process. CT angiography demonstrates no flow limiting stenosis of the bilateral carotid bifurcations narrowing on the right from atheromatous plaquing approaches 50%. Normal [place]. Hand x-ray demonstrates mild subluxation at the third metacarpal phalangeal joints. No underlying fractures. Chest x-ray demonstrates no acute cardio process. The patient's tetanus is updated. I informed patient of the diagnosis, differential and treatment options. I did recommend hospital admission. The patient took 2 full dose aspirin today and therefore I did not provide him with additional one. Patient did agree to admission. I will consult cardiology and nephrology. Patient was accepted for by Dr. moreno. EKG demonstrates sinus rhythm with ventricular rate of 60. MS interval 186. QRS 106. QTC of 429. Q-wave in lead 3. No acute ST segment elevations. 10/09/19 12:55 Past Medical History Past Medical History: Diabetes Mellitus, Hyperlipidemia, Hypertension History of Any Multi-Drug Resistant Organisms: None Reported Past Surgical History: Tonsillectomy Additional Past Surgical History / Comment(s): mole removal Past Anesthesia/Blood Transfusion Reactions: No Reported Reaction Past Psychological History: No Psychological Hx Reported Smoking Status: Current every day smoker Past Alcohol Use History: None Reported Past Drug Use History: None Reported - Past Family History Sister(s) History Unknown: Yes Course Vital Signs 10/09/19 10/09/19 10/09/19 11:13 11:30 12:00 Temperature 97.9 F Pulse Rate 66 75 65 Pulse Rate [ Pulse Oximetery ] Respiratory 18 18 18 Rate Blood Pressure 156/78 159/73 162/84 Blood Pressure [Left Arm] O2 Sat by Pulse 97 99 Oximetry 10/09/19 10/09/19 10/09/19 12:30 13:00 13:30 Temperature 98.0 F Pulse Rate 72 74 65 Pulse Rate [ Pulse Oximetery ] Respiratory 18 18 18 Rate Blood Pressure 161/76 163/78 166/77 Blood Pressure [Left Arm] O2 Sat by Pulse 99 99 99 Oximetry 10/09/19 10/09/19 10/09/19 14:00 14:13 14:30 Temperature 98.0 F 98 F 98.0 F Pulse Rate 81 75 Pulse Rate [ 64 Pulse Oximetery ] Respiratory 18 16 18 Rate Blood Pressure 168/79 161/81 Blood Pressure 176/76 [Left Arm] O2 Sat by Pulse 96 98 98 Oximetry Disposition Clinical Impression: Cerebrovascular accident, Left hemiparesis Disposition: ADMITTED IP TO THIS [facility] Condition: Stable Is patient prescribed a controlled substance at d/c from ED?: No Decision to Admit Reason: Admit from EC Decision Date: 10/09/19 Decision Time: 13:06
[2019-10-09 12:01] LABS: Albumin 4.4 g/dL (3.5-5.0); Calcium 9.3 mg/dL (8.4-10.2); Potassium 5.1 mmol/L (3.5-5.1); Total Bilirubin 0.5 mg/dL (0.2-1.3); Total Protein 7.1 g/dL (6.3-8.2)
[2019-10-09 12:12] LABS: Partial Thromboplastin Time 23.8 sec (22.0-30.0); Prothrombin Time 10.2 sec (9.0-12.0)
--- NOTE | 2019-10-09 12:31 | CT ---
EXAMINATION TYPE: CT angio head neck DATE OF EXAM: 10/09/2019 HISTORY: Lt sided weakness COMPARISON: None CT DLP: 484.9 mGycm. Automated Exposure Control for Dose Reduction was Utilized. TECHNIQUE: CTA scan of the neck is performed with IV Contrast, patient injected with 65 mL of Isovue 370, axial images are obtained, coronal and sagittal reformatted images are reviewed. Three-D recons tructed images are created on an independent workstation and reviewed. Source images are reviewed. FINDINGS: Carotid/Vascular Structures: There is a three-vessel arch. Vertebral arteries are codominant. Atherom atous plaquing is at the bilateral carotid bifurcations. Significant flow-limiting stenosis is not id entified. Narrowing however on the right may approach 50% from the plaquing. Internal carotid arterie s are patent to the skull base. Cervical of [place]: Vertebral basilar system appears normal. Posterior cerebral vasculature is unrema rkable. Internal carotid arteries bifurcate normally into A1 and M1 segments. A2 segments are normal. The anterior communicating artery is patent. Left Posterior communicating artery is patent. Right po sterior communicating artery is patent. IMPRESSION: 1. No flow-limiting stenosis bilateral carotid bifurcations. Narrowing on the right from atheromatous plaquing approaches 50%. This is less on the left carotid bifurcation. 2. Normal [place]
[2019-10-09] MEDS ORDERED: SODIUM CHLORIDE 0.9% 500 ML 500 ML IV ONE (12:33)
[2019-10-09] MEDS: SODIUM CHLORIDE 0.9% 1,000 ML IV SCH (12:50)
[2019-10-09] MEDS ORDERED: NALOXONE 0.4 MG/ML 1 ML VIAL IV PRN (13:36)
--- NOTE | 2019-10-09 13:45 | XR ---
EXAMINATION TYPE: XR hand complete LT DATE OF EXAM: 10/09/2019 COMPARISON: None HISTORY: Fall, pain TECHNIQUE: Three-view left hand FINDINGS: No acute fractures are evident. There may be some subtle subluxation of the proximal phalan x on the third metacarpal. Joint space narrowing is present at that location. Remaining joint spaces appear preserved. IMPRESSION: 1. Mild subluxation at the third metacarpal phalangeal joint space. 2. No underlying fractures identified. 3. Follow-up exams can be performed 7-10 days from acute trauma for continued pain.
--- NOTE | 2019-10-09 13:46 | XR ---
EXAMINATION TYPE: XR chest 2V DATE OF EXAM: 10/09/2019 COMPARISON: 02/27/2019 INDICATION: Altered mental status left hand numb left leg gives out TECHNIQUE: Frontal and lateral views of the chest are obtained. FINDINGS: The heart size is normal. The pulmonary vasculature is normal. The lungs are clear. IMPRESSION: 1. No acute pulmonary process.
[2019-10-09] MEDS ORDERED: DIPH,PERTUS(ACELL)TETVAC-LF 0.5 ML VIAL IM ONE (13:47)
[2019-10-09 14:02] LABS: Appearance,Urine Clear (Clear); Bilirubin,Urine Negative (Negative); Blood,Urine Negative (Negative); Color,Urine Light Yellow; Glucose,Urine (UA) Negative (Negative); Ketones,Urine Negative (Negative); Leukocyte Esterase,Urine Negative (Negative); Nitrite,Urine Negative (Negative); Protein,Urine Trace (Negative); Specific Gravity,Urine 1.012 (1.001-1.035); Urobilinogen,Urine <2.0 mg/dL (<2.0)
[2019-10-09 16:22] LABS: Glucose,Whole Blood 84 mg/dL (75-99)
[2019-10-09] MEDS ORDERED: ASPIRIN 81 MG PO STA (16:56)
--- NOTE | 2019-10-09 17:04 | P.CNNES ---
History of Present Illness Consult date: 10/09/19 Requesting physician: Wendy Day Reason for Consult: Acute left-sided weakness, acute CVA History of Present Illness: Patient is a 74-year-old male, with past medical history of hypertension, hyperlipidemia and diabetes, presented to the the ER today at 11:11 AM for left upper and lower extremity weakness. Patient states that he woke up at 6:30 AM, walked upstairs, went to the bathroom, came back down. At 7 AM he noticed sudden onset of weakness of his left hand became numb and then left leg. He fell 3 times because of left-sided weakness. Patient states that his son brought him to the hospital, but paid some bills enroute to the hospital, therefore arrived here at 11:11 AM. Patient's vital signs on arrival was 156/78, pulse rate 66, temperature 97.9. ED physician's discussed with stroke neurologist Dr. Camacho, who felt patient was not a candidate for TPA. Patient underwent CT head showed age-related atrophic and chronic small vessel ischemic change, without acute intracranial process. CTA of head and neck showed no flow-limiting stenosis of bilateral carotid bifurcations. Narrowing on the ri ght from atheromatous plaquing approaches 50%. This is less on the left carotid bifurcation. Normal [place]. EKG shows normal sinus rhythm. Chest x- ray showed no acute cardiothoracic process. Patient's CBC, CMP, UA negative. Patient has history of CVA in 2018 without residual deficits. Patient has history of diabetes for 10 years, hypertension. He has smoked 1-1/2 pack per day since age 20, for over 50 years. Patient says that he was supposed to take aspirin but he stopped taking aspirin 8 months ago. Patient lives with his daughter and son-in-law. Patient feels his left sided weakness is slightly improved since he has been in the hospital. Review of Systems As mentioned above in detail. Patient has some arthritis. Patient is hard of hearing. Denies any chest pain shortness of breath wheezing, abdominal pain nausea vomiting diarrhea. Patient denies any slurred speech problem with the vision. He is noticing balance issues. Past Medical History Past Medical History: Diabetes Mellitus, Hyperlipidemia, Hypertension History of Any Multi-Drug Resistant Organisms: None Reported Past Surgical History: Tonsillectomy Additional Past Surgical History / Comment(s): mole removal Past Anesthesia/Blood Transfusion Reactions: No Reported Reaction Past Psychological History: No Psychological Hx Reported Smoking Status: Current every day smoker Past Alcohol Use History: None Reported Past Drug Use History: None Reported - Past Family History Sister(s) History Unknown: Yes Medications and Allergies Home Medications Medication Instructions Recorded Confirmed Type Atorvastatin [Lipitor] 40 mg PO DAILY 12/08/17 10/09/19 History amLODIPine [Norvasc] 5 mg PO DAILY 12/08/17 10/09/19 History HYDROcodone/APAP 10-325MG [[place] 1 tab PO QID 12/10/17 10/09/19 History 10-325] Ibuprofen [Motrin] 800 mg PO TID PRN 10/09/19 10/09/19 History Losartan Potassium [Cozaar] 100 mg PO DAILY 10/09/19 10/09/19 History metFORMIN HCL 1,000 mg PO BID-W/MEALS 10/09/19 10/09/19 History Allergies Allergy/AdvReac Type Severity Reaction Status Date / Time No Known Allergies Allergy Verified 10/09/19 12:44 Physical Examination - Vital Signs Vital Signs: Vital Signs Temp Pulse Pulse Resp BP BP Pulse Ox 10/09/19 14:30 98.0 F 75 18 161/81 98 10/09/19 14:13 98 F 64 16 176/76 98 10/09/19 14:00 98.0 F 81 18 168/79 96 10/09/19 13:30 65 18 166/77 99 10/09/19 13:00 74 18 163/78 99 10/09/19 12:30 98.0 F 72 18 161/76 99 10/09/19 12:00 65 18 162/84 99 10/09/19 11:30 75 18 159/73 10/09/19 11:13 97.9 F 66 18 156/78 97 Intake and Output 10/09/19 10/09/19 10/09/19 06:59 14:59 22:59 Other: Weight 87.09 kg On examination patient is an elderly male, in no acute distress. Patient is alert awake oriented to time place and person. Speech and language functions are normal. Attention and concentration fund of knowledge is adequate. On cranial examination pupils are round and reactive to light. Visual deleon are full on confrontation. Extraocular muscles are intact with no nystagmus. Face appears symmetric and tongue protrudes the midline. Palatal elevation and sensation normal hearing is moderately decreased, shoulder shrug normal. On muscle strength testing patient has left pronator drift. The strength is normal in the right arm and both legs. On the left upper limb, his deltoid, biceps and triceps are normal. Statistical Secretary is 2. Sensory touch is equal with no neglect. Patient is ataxic for [id number] on the left. [id number] testing was intact bilaterally. Reflexes are hypoactive all over and plantars downgoing bilaterally. Tone is slightly decreased in the left hand. Bulk of muscles is normal. Patient walks, appears unsteady and leans to the left. There is no obvious bruit, S1 and S2 audible. No peripheral edema. Chest is clear. Abdomen soft nontender. Results - Laboratory Findings CBC and BMP: 10/09/19 11:34 10/09/19 11:34 Abnormal Lab Findings: Abnormal Labs 10/09/19 10/09/19 10/09/19 11:34 11:34 13:15 RBC 4.06 L Hgb 12.8 L Lymphocytes # 0.8 L Carbon Dioxide 19 L BUN 42 H Creatinine 2.53 H AST 14 L Urine Protein Trace H Assessment and Plan Assessment: * Probable acute ischemic stroke with left hemiparesis. Rule out embolic stroke versus lacunar. * Hypertension * Diabetes * Hyperlipidemia * 50+ pack-year of tobacco use. Plan: * MRI of the brain to localize and confirm CVA. * Patient will be placed on dual antiplatelet medications for 21 days, then will stay on monotherapy with aspirin 81 mg. * We will check fasting a.m. lipid panel, hemoglobin A1c. * 2-D echo to rule out any embolic source. * Permissible hypertension for 24-48 hours. * Telemetric monitoring. * PT and OT evaluate gait.
[2019-10-09] MEDS: CLOPIDOGREL 75 MG TAB PO SCH (17:11)
--- NOTE | 2019-10-09 17:36 | P.HPIM ---
History of Present Illness this is a pleasant 74 years old male with past medical history of hypertension, hyperlipidemia, diabetes mellitus, previous CVA/TIA.presents with left upper lower extremity weakness of one-day duration is started at 7:30 in the morning. Associated with some numbness in the hand, associated with slurred speech. However patient denies blurred vision, no swallowing difficulty. Because of weakness patient fell about 3-4 times and has abrasion on the dorsum of the left hand In 2018 he had similar stroke/TIA on the same side with left hemiparesis however that weakness has resolved completely. However patient continued to smoke about 1.5 pack per day of that is adherent to treatment of his baby aspirin. (Confirmed by patient and son in law at bedside). He denies alcohol or illicit drugs. Patient states that his slurred speech has resolved and his left sided weakness is only slightly better than when he came to the emergency room The emergency room patient was found not a candidate for TPA after discussing with the stroke neurologist on-call. Patient states that he noticed he is voiding a lot denies dysuria, no chest pain or coughing or abdominal pain, no nausea vomiting vitals are stable. Labs including CBC, INR, BMP and liver enzymes were unremarkable except for increased creatinine of 2.5, baseline creatinine is 1.3- 1.8 CT of the brain: No acute processes by radiologist. Chest x-ray: no acute process. CTA of the head and neck showing no flow limiting stenosis of bilateral carotid bifurcations. Narrowing on the right from atheromatous plaquing approaching 50%, this is less on the left side. Normal [place] of strong. EKG showing normal sinus rhythm at [address]-T changes. in the emergency room he got normal saline 500 mL bolus and started on 75 mL/h Review of Systems CONSTITUTIONAL: No fever, no malaise, no fatigue. HEENT: No recent visual problems or hearing problems. Denied any sore throat. CARDIOVASCULAR: No orthopnea, PND, no palpitations, no syncope. PULMONARY: No shortness of breath, no cough, no hemoptysis. GASTROINTESTINAL: No diarrhea, no nausea, no vomiting, no abdominal pain. Normoactive bowel sounds. NEUROLOGICAL: No headaches, no blurred vision HEMATOLOGICAL: Denies any bleeding or petechiae. GENITOURINARY: Denies any burning micturition, frequency, or urgency. MUSCULOSKELETAL/RHEUMATOLOGICAL: Denies any joint pain, swelling, or any muscle pain. ENDOCRINE: Denies any polyuria or polydipsia. Past Medical History Past Medical History: Diabetes Mellitus, Hyperlipidemia, Hypertension History of Any Multi-Drug Resistant Organisms: None Reported Past Surgical History: Tonsillectomy Additional Past Surgical History / Comment(s): mole removal Past Anesthesia/Blood Transfusion Reactions: No Reported Reaction Past Psychological History: No Psychological Hx Reported Smoking Status: Current every day smoker Past Alcohol Use History: None Reported Past Drug Use History: None Reported - Past Family History Sister(s) History Unknown: Yes Medications and Allergies Home Medications Medication Instructions Recorded Confirmed Type Atorvastatin [Lipitor] 40 mg PO DAILY 12/08/17 10/09/19 History amLODIPine [Norvasc] 5 mg PO DAILY 12/08/17 10/09/19 History HYDROcodone/APAP 10-325MG [[place] 1 tab PO QID 12/10/17 10/09/19 History 10-325] Ibuprofen [Motrin] 800 mg PO TID PRN 10/09/19 10/09/19 History Losartan Potassium [Cozaar] 100 mg PO DAILY 10/09/19 10/09/19 History metFORMIN HCL 1,000 mg PO BID-W/MEALS 10/09/19 10/09/19 History Allergies Allergy/AdvReac Type Severity Reaction Status Date / Time No Known Allergies Allergy Verified 10/09/19 12:44 Physical Exam Vitals: Vital Signs Temp Pulse Resp BP Pulse Ox 10/09/19 13:00 74 18 163/78 99 10/09/19 12:30 98.0 F 72 18 161/76 99 10/09/19 12:00 65 18 162/84 99 10/09/19 11:30 75 18 159/73 10/09/19 11:13 97.9 F 66 18 156/78 97 Intake and Output 10/08/19 10/09/19 10/09/19 22:59 06:59 14:59 Other: Weight 87.09 kg GENERAL: The patient is alert and oriented x3, not in any acute distress. Well developed, well nourished. HEENT: Pupils are round and equally reacting to light. EOMI. No scleral icterus. No conjunctival pallor. Normocephalic, atraumatic. No pharyngeal erythema. No thyromegaly. CARDIOVASCULAR: S1 and S2 present. No murmurs, rubs, or gallops. PULMONARY: Chest is clear to auscultation, no wheezing or crackles. ABDOMEN: Soft, nontender, nondistended, normoactive bowel sounds. No palpable organomegaly. MUSCULOSKELETAL: No joint swelling or deformity. -EXTREMITIES: No cyanosis, clubbing, or pedal edema. Small abrasion on the dorsum of the left and -NEUROLOGICAL: Alert awake oriented [address], cranial nerves are grossly intact. He has weakness in his left upper and lower extremity, he helen ot make a group of his left hand and only slightly he can flex his fingers. SKIN: No rashes. No petechiae Results CBC & Chem 7: 10/09/19 11:34 10/09/19 11:34 Labs: Abnormal Lab Results - Last 24 Hours (Table) 10/09/19 10/09/19 Range/Units 11:34 11:34 RBC 4.06 L (4.30-5.90) m/uL Hgb 12.8 L (13.0-17.5) gm/dL Lymphocytes # 0.8 L (1.0-4.8) k/uL Carbon Dioxide 19 L (22-30) mmol/L BUN 42 H (9-20) mg/dL Creatinine 2.53 H (0.66-1.25) mg/dL AST 14 L (17-59) U/L Assessment and Plan Assessment: acute stroke with left sided hemiparesis and weakness in the left upper and lower extremities fall with abrasion on the dorsum of the left hand Nicotine dependence Non-adherence to therapy Diabetes mellitus Hypertension Hyperlipidemia Plan: this is a pleasant 74 years old male who presents with acute stroke, neurology consult, continue with aspirin. Check echocardiogram and MRI of the brain. Also will check hemoglobin A1c Labs and medication were reviewed.. Continue same treatment. Continue with symptomatic treatment. Resume home medication. Monitor lytes and vitals. DVT and GI prophylaxis. Further recommendations of the clinical course of the patient DVT prophylaxis: Subcutaneous heparin GI Prophylaxis: Pepcid PT/OT: Pending patient wants to be no colds (DO NOT RESUSCITATE ) Prognosis is guarded
[2019-10-10] MEDS: SODIUM CHLORIDE 0.9% 1,000 ML IV SCH ×3 (02:53→23:09)
[2019-10-10 06:40] LABS: Calcium 9.1 mg/dL (8.4-10.2); Potassium 4.6 mmol/L (3.5-5.1)
[2019-10-10 06:45] LABS: Basophils # (A) 0.1 k/uL (0-0.2); Basophils % (A) 1 %; Eosinophils # (A) 0.2 k/uL (0-0.7); Eosinophils % (A) 3 %; HCT 36.9 % (39.0-53.0); HGB 12.3 gm/dL (13.0-17.5); Lymphocytes # (A) 0.9 k/uL (1.0-4.8); Lymphocytes % (A) 11 %; MCH 32.2 pg (25.0-35.0); MCHC 33.4 g/dL (31.0-37.0); MCV 96.2 fL (80.0-100.0); Mean Platelet Volume 7.5; Monocytes # (A) 0.4 k/uL (0-1.0); Monocytes % (A) 5 %; Neutrophils # (A) 6.2 k/uL (1.3-7.7); Neutrophils % (A) 80 %; Platelet Count 198 k/uL (150-450); RBC 3.83 m/uL (4.30-5.90); RDW 13.3 % (11.5-15.5); WBC 7.7 k/uL (3.8-10.6)
[2019-10-10 07:27] LABS: Glucose,Whole Blood 101 mg/dL (75-99)
[2019-10-10] MEDS ORDERED: amLODIPine 5 MG TAB PO SCH (09:00)
[2019-10-10] MEDS: HYDROcodone/APAP 10-325MG 1 EACH TAB PO PRN (09:03)
[2019-10-10] MEDS: ATORVASTATIN 40 MG TAB PO SCH (09:03)
[2019-10-10] MEDS: ASPIRIN 81 MG PO SCH (09:03)
[2019-10-10] MEDS: CLOPIDOGREL 75 MG TAB PO SCH (09:03)
--- NOTE | 2019-10-10 11:56 | P.PN ---
Subjective this is a pleasant 74 years old male with past medical history of hypertension, hyperlipidemia, diabetes mellitus, previous CVA/TIA.presents with left upper lower extremity weakness of one-day duration is started at 7:30 in the morning. Associated with some numbness in the hand, associated with slurred speech. However patient denies blurred vision, no swallowing difficulty. Because of weakness patient fell about 3-4 times and has abrasion on the dorsum of the left hand In 2018 he had similar stroke/TIA on the same side with left hemiparesis however that weakness has resolved completely. However patient continued to smoke about 1.5 pack per day of that is adherent to treatment of his baby aspirin. (Confirmed by patient and son in law at bedside). He denies alcohol or illicit drugs. Patient states that his slurred speech has resolved and his left sided weakness is only slightly better than when he came to the emergency room The emergency room patient was found not a candidate for TPA after discussing with the stroke neurologist on-call. Patient states that he noticed he is voiding a lot denies dysuria, no chest pain or coughing or abdominal pain, no nausea vomiting vitals are stable. Labs including CBC, INR, BMP and liver enzymes were unremarkable except for increased creatinine of 2.5, baseline creatinine is 1.3- 1.8 CT of the brain: No acute processes by radiologist. Chest x-ray: no acute process. CTA of the head and neck showing no flow limiting stenosis of bilateral carotid bifurcations. Narrowing on the right from atheromatous plaquing approaching 50%, this is less on the left side. Normal [place]. EKG showing normal sinus rhythm at [address]-T changes. in the emergency room he got normal saline 500 mL bolus and started on 75 mL/h 10/10/2019 Patient still complaining of from left upper extremity weakness similar to yesterday, however today he said in his left leg is fine and he can been treated with no difficulty. He still has a bruise on the dorsum of his left hand and x- ray showing mild . vitals are labs are stable, his creatinine is 2.27, continue with normal saline 75 mL/h, urologist recommended MRI of the brain and echocardiogram which are pending. we going to call orthopedic consult for his left hand lesion. patient today confirm to me he is DO NOT RESUSCITATE, he has capacity for medical decision review of systems CONSTITUTIONAL: No fever, no malaise, no fatigue. HEENT: No recent visual problems or hearing problems. Denied any sore throat. CARDIOVASCULAR: No orthopnea, PND, no palpitations, no syncope. PULMONARY: No shortness of breath, no cough, no hemoptysis. GASTROINTESTINAL: No diarrhea, no nausea, no vomiting, no abdominal pain. Normoactive bowel sounds. NEUROLOGICAL: No headaches, no blurred vision HEMATOLOGICAL: Denies any bleeding or petechiae. GENITOURINARY: Denies any burning micturition, frequency, or urgency. MUSCULOSKELETAL/RHEUMATOLOGICAL: Denies any joint pain, swelling, or any muscle pain. ENDOCRINE: Denies any polyuria or polydipsia. Active Medications Generic Name Dose Route Start Last Admin Trade Name Freq PRN Reason Stop Dose Admin Hydrocodone Bitart/Acetaminophen 1 each 10/09/19 17:39 10/10/19 09:03 [place] 10 PO 1 each QID PRN Administration Pain Amlodipine Besylate 5 mg 10/10/19 09:00 10/10/19 09:03 Norvasc PO 5 mg DAILY SOFIA Administration Aspirin 81 mg 10/10/19 09:00 10/10/19 09:03 Aspirin PO 81 mg DAILY SOFIA Administration Atorvastatin Calcium 40 mg 10/10/19 09:00 10/10/19 09:03 Lipitor PO 40 mg DAILY SOFIA Administration Clopidogrel Bisulfate 75 mg 10/09/19 17:15 10/10/19 09:03 Plavix PO 75 mg DAILY SOFIA Administration Sodium Chloride 1,000 mls @ 75 mls/hr 10/09/19 12:45 10/10/19 02:53 Saline 0.9% IV Not Given .[id number] SOFIA Naloxone HCl 0.2 mg 10/09/19 13:36 Narcan IV Q2M PRN Opioid Reversal Objective - Vital Signs Vital signs: Vital Signs Temp 97.6 F 10/10/19 08:00 Pulse 68 10/10/19 08:00 Resp 18 10/10/19 08:00 BP 170/74 10/10/19 08:00 Pulse Ox 96 10/10/19 08:00 Intake & Output 10/09/19 10/10/19 10/10/19 18:59 06:59 18:59 Intake Total 360 225 Balance 360 225 Weight 87.09 kg 85.5 kg Intake: Oral 360 225 Other: # Voids 4 1 - Exam GENERAL: The patient is alert and oriented x3, not in any acute distress. Well developed, well nourished. HEENT: Pupils are round and equally reacting to light. EOMI. No scleral icterus. No conjunctival pallor. Normocephalic, atraumatic. No pharyngeal erythema. No thyromegaly. CARDIOVASCULAR: S1 and S2 present. No murmurs, rubs, or gallops. PULMONARY: Chest is clear to auscultation, no wheezing or crackles. ABDOMEN: Soft, nontender, nondistended, normoactive bowel sounds. No palpable organomegaly. MUSCULOSKELETAL: No joint swelling or deformity. -EXTREMITIES: No cyanosis, clubbing, or pedal edema. Small abrasion on the dorsum of the left and -NEUROLOGICAL: Alert awake oriented [address], cranial nerves are grossly intact. He has weakness in his left upper extremity, he cannot make a group of his left hand and only slightly he can flex his fingers.he is left lower extremity is much better today SKIN: No rashes. No petechiae - Labs CBC & Chem 7: 10/10/19 05:45 10/10/19 05:45 Labs: Abnormal Lab Results - Last 24 Hours (Table) 10/09/19 10/09/19 10/09/19 Range/Units 11:34 11:34 13:15 RBC 4.06 L (4.30-5.90) m/uL Hgb 12.8 L (13.0-17.5) gm/dL Hct (39.0-53.0) % Lymphocytes # 0.8 L (1.0-4.8) k/uL Chloride (98-107) mmol/L Carbon Dioxide 19 L (22-30) mmol/L BUN 42 H (9-20) mg/dL Creatinine 2.53 H (0.66-1.25) mg/dL POC Glucose (mg/dL) (75-99) mg/dL AST 14 L (17-59) U/L Triglycerides (<150) mg/dL HDL Cholesterol (40-60) mg/dL Urine Protein Trace H (Negative) 10/10/19 10/10/19 10/10/19 Range/Units 05:45 05:45 07:26 RBC 3.83 L (4.30-5.90) m/uL Hgb 12.3 L (13.0-17.5) gm/dL Hct 36.9 L (39.0-53.0) % Lymphocytes # 0.9 L (1.0-4.8) k/uL Chloride 109 H (98-107) mmol/L Carbon Dioxide 19 L (22-30) mmol/L BUN 35 H (9-20) mg/dL Creatinine 2.27 H (0.66-1.25) mg/dL POC Glucose (mg/dL) 101 H (75-99) mg/dL AST (17-59) U/L Triglycerides 153 H (<150) mg/dL HDL Cholesterol 30 L (40-60) mg/dL Urine Protein (Negative) Assessment and Plan Assessment: acute stroke with left sided hemiparesis and weakness in the left upper and lower extremities fall with abrasion on the dorsum of the left hand Nicotine dependence Non-adherence to therapy Diabetes mellitus Hypertension Hyperlipidemia Plan: this is a pleasant 74 years old male who presents with acute stroke, neurology consult, continue with aspirin. Check echocardiogram and MRI of the brain. Also will check hemoglobin A1c. Call orthopedic consult Labs and medication were reviewed.. Continue same treatment. Continue with symptomatic treatment. Resume home medication. Monitor lytes and vitals. DVT and GI prophylaxis. Further recommendations of the clinical course of the patient DVT prophylaxis: Subcutaneous heparin GI Prophylaxis: Pepcid PT/OT: Pending Prognosis is guarded CODE STATUS: DO NOT RESUSCITATE, confirmed with patient
--- NOTE | 2019-10-10 12:13 | P.NPCON ---
History of Present Illness - Reason for Consult acute renal failure - History of Present Illness reason for consultation: Acute kidney injury History of present illness: Patient is a 74-year-old male seen in renal consultation for acute kidney injury. Patient's creatinine was 2.53 on admission and is 2.27 today. Patient denies any history of kidney disease. He presented to the hospital due to weakness and tingling in his left hand and left lower extremity. Patient states he feels better but he still not able to open his left hand. Otherwise he is able to move all his extremities. Denies vomiting or diarrhea. Oral intake has been fair. Good urine output. No hematuria or dysuria. He does have history of high blood pressure as well as diabetes. Denies family history of renal disease. No abdominal pain. No edema. He is currently maintained on IV fluids. Does admit to taking Motrin almost on a daily basis for the last 4-5 years. Denies chest pain or shortness of breath. Vital signs are stable. General: The patient appeared well nourished and normally developed. HEENT: Head exam is unremarkable. Neck is without jugular venous distension. LUNGS: Lungs are clear to auscultation and percussion. Breath sounds decreased. HEART: Rate and Rhythm are regular. ABDOMEN: Abdominal exam reveals normal bowel sounds. Non-tender and non- distended. EXTREMITITES: No clubbing, cyanosis, or edema. Past Medical History Past Medical History: Diabetes Mellitus, Hyperlipidemia, Hypertension History of Any Multi-Drug Resistant Organisms: None Reported Past Surgical History: Tonsillectomy Additional Past Surgical History / Comment(s): mole removal Past Anesthesia/Blood Transfusion Reactions: No Reported Reaction Past Psychological History: No Psychological Hx Reported Smoking Status: Current every day smoker Past Alcohol Use History: None Reported Past Drug Use History: None Reported - Past Family History Sister(s) History Unknown: Yes Medications and Allergies Home Medications Medication Instructions Recorded Confirmed Type Atorvastatin [Lipitor] 40 mg PO DAILY 12/08/17 10/09/19 History amLODIPine [Norvasc] 5 mg PO DAILY 12/08/17 10/09/19 History HYDROcodone/APAP 10-325MG [[place] 1 tab PO QID 12/10/17 10/09/19 History 10-325] Ibuprofen [Motrin] 800 mg PO TID PRN 10/09/19 10/09/19 History Losartan Potassium [Cozaar] 100 mg PO DAILY 10/09/19 10/09/19 History metFORMIN HCL 1,000 mg PO BID-W/MEALS 10/09/19 10/09/19 History Allergies Allergy/AdvReac Type Severity Reaction Status Date / Time No Known Allergies Allergy Verified 10/09/19 12:44 Physical Exam Vitals: Vital Signs Temp Pulse Pulse Resp BP BP Pulse Ox 10/10/19 08:00 97.6 F 68 18 170/74 96 10/10/19 03:27 97.6 F 66 18 132/58 95 10/09/19 23:38 65 18 138/70 98 10/09/19 20:00 97.5 F L 63 18 124/59 97 10/09/19 14:30 98.0 F 75 18 161/81 98 10/09/19 14:13 98 F 64 16 176/76 98 10/09/19 14:00 98.0 F 81 18 168/79 96 10/09/19 13:30 65 18 166/77 99 10/09/19 13:00 74 18 163/78 99 10/09/19 12:30 98.0 F 72 18 161/76 99 Intake and Output 10/09/19 10/10/19 10/10/19 22:59 06:59 14:59 Intake Total 360 225 Balance 360 225 Intake: Oral 360 225 Other: # Voids 1 1 Weight 85.5 kg Results - Lab Results Most recent lab results Calcium 9.1 mg/dL (8.4-10.2) 10/10/19 05:45 10/10/19 05:45 10/10/19 05:45 Assessment and Plan Plan: assessment: 1. Acute kidney injury mostly prerenal secondary to nonsteroidals further worsened with the use of losartan. patient also received IV contrast dye on October 08. Creatinine was 2.53 on admission is 2.27 today. UA reveals trace proteinuria. 2. Probable acute ischemic stroke. CT angiogram revealed no acute changes. 3. Diabetes mellitus. 4. Benign hypertension. 5. History of tobacco abuse. 6. Metabolic acidosis secondary to acute kidney injury. Plan: Maintain normal saline at 75 mL an hour. Check renal ultrasound. Avoid metformin if GFR less than 30. Monitor blood pressure. Increase amlodipine to 10 mg daily if systolic blood pressure persistently greater than 140. Continue to monitor renal function and urine output. Monitor bicarb. Thank you for the consultation. I will continue to follow the patient with you during his hospital stay.
[2019-10-10 12:43] VITALS: BMI 27.0
--- NOTE | 2019-10-10 13:18 | P.CONS ---
History of Present Illness - Chief Complaint Gait disturbance, left hemiparesthesias - History of Present Illness I had the opportunity to see patient for inpatient rehab consultation with regard to gait disturbance. He was admitted to [facility] October 08 a one-day duration left arm and leg weakness. Patient also reports history of fall. Seen in consultation by Dr. Vides for acute kidney injury and Dr. Ashford for the stroke. Angiogram CT demonstrates 50% occlusion right. Head CT with age- related change only. Left hand x-ray subluxation third MCP joint. Chest x-ray negative. Speech therapy assessed communication cognition within normal limits. PT and OT prescribed. Previous functional history as elicited patient: 74-year-old right-handed white male who is single lives and 2 floor home with daughter and son-in-law. Son-in-law does the cooking and laundry. Patient describes that he is ind ependent with own driving, standing shower and gait with change which she uses in either floor. He does have a walker as well. PMD Dr. Debbie Garcia. Patient reports smoking packet half per day and denies alcohol. Review of Systems Review of systems: ENT: Denies sneezes or discharge. Eyes: Denies discharge or photophobia. Cardiac: Denies chest pain or palpitation. Pulmonary: Denies cough or shortness of breath. Gastrointestinal: Denies nausea, emesis, constipation, diarrhea. Genitourinary: Denies discharge or frequency. Musculoskeletal: Denies muscle or bone aches. Neurologic: Left arm and leg weakness and numbness. Endocrine: Denies shakes or sweats. Oncology: Denies cancers. Dermatologic: Denies rash, itching, pruritus. ALLERGY/immunology: Denies sneezes, rashes. Past Medical History Past Medical History: Diabetes Mellitus, Hyperlipidemia, Hypertension History of Any Multi-Drug Resistant Organisms: None Reported Past Surgical History: Tonsillectomy Additional Past Surgical History / Comment(s): mole removal Past Anesthesia/Blood Transfusion Reactions: No Reported Reaction Past Psychological History: No Psychological Hx Reported Smoking Status: Current every day smoker Past Alcohol Use History: None Reported Past Drug Use History: None Reported - Past Family History Sister(s) History Unknown: Yes Medications and Allergies Home Medications Medication Instructions Recorded Confirmed Type Atorvastatin [Lipitor] 40 mg PO DAILY 12/08/17 10/09/19 History amLODIPine [Norvasc] 5 mg PO DAILY 12/08/17 10/09/19 History HYDROcodone/APAP 10-325MG [[place] 1 tab PO QID 12/10/17 10/09/19 History 10-325] Ibuprofen [Motrin] 800 mg PO TID PRN 10/09/19 10/09/19 History Losartan Potassium [Cozaar] 100 mg PO DAILY 10/09/19 10/09/19 History metFORMIN HCL 1,000 mg PO BID-W/MEALS 10/09/19 10/09/19 History Allergies Allergy/AdvReac Type Severity Reaction Status Date / Time No Known Allergies Allergy Verified 10/09/19 12:44 Physical Exam Vitals: Vital Signs Temp Pulse Pulse Resp BP BP Pulse Ox 10/10/19 11:10 98.5 F 64 18 190/84 95 10/10/19 08:45 97.6 F 68 18 170/74 96 10/10/19 03:27 97.6 F 66 18 132/58 95 10/09/19 23:38 65 18 138/70 98 10/09/19 20:00 97.5 F L 63 18 124/59 97 10/09/19 14:30 98.0 F 75 18 161/81 98 10/09/19 14:13 98 F 64 16 176/76 98 10/09/19 14:00 98.0 F 81 18 168/79 96 10/09/19 13:30 65 18 166/77 99 Intake and Output 10/09/19 10/10/19 10/10/19 22:59 06:59 14:59 Intake Total 360 450 Balance 360 450 Intake: Oral 360 450 Other: # Voids 1 1 Weight 85.5 kg 85.5 kg Skin: Atrophic, intact. General: Medium build and comfortable appearance. Head: Normocephalic, atraumatic. Eyes: Symmetric. Pupils equal round. Ears: Symmetric. Hearing within normal limits. Mouth: Clear. Neck: Supple. Carotid without bruit. Cardiac: Regular rate and rhythm. Lungs: Clear anteriorly and posteriorly. Abdomen: Soft active nontender. Extremities: Normal tone. Neurological: Mental status: Alert, cooperative, pleasant. Cranial nerves: Symmetric facial tone and trapezius. Motor: Normal strength and isolation right arm and leg. Left arm and leg with elements of isolation, hand more so than ankle is apraxic. Sensation: Intact throughout. DTRs: Symmetric and equal throughout. Mobility: Requires physical assist for bedside transfer to Day chair. Results CBC & Chem 7: 10/10/19 05:45 10/10/19 05:45 Labs: Abnormal Lab Results - Last 24 Hours (Table) 10/09/19 10/10/19 10/10/19 Range/Units 13:15 05:45 05:45 RBC 3.83 L (4.30-5.90) m/uL Hgb 12.3 L (13.0-17.5) gm/dL Hct 36.9 L (39.0-53.0) % Lymphocytes # 0.9 L (1.0-4.8) k/uL Chloride 109 H (98-107) mmol/L Carbon Dioxide 19 L (22-30) mmol/L BUN 35 H (9-20) mg/dL Creatinine 2.27 H (0.66-1.25) mg/dL POC Glucose (mg/dL) (75-99) mg/dL Triglycerides 153 H (<150) mg/dL HDL Cholesterol 30 L (40-60) mg/dL Urine Protein Trace H (Negative) 10/10/19 Range/Units 07:26 RBC (4.30-5.90) m/uL Hgb (13.0-17.5) gm/dL Hct (39.0-53.0) % Lymphocytes # (1.0-4.8) k/uL Chloride (98-107) mmol/L Carbon Dioxide (22-30) mmol/L BUN (9-20) mg/dL Creatinine (0.66-1.25) mg/dL POC Glucose (mg/dL) 101 H (75-99) mg/dL Triglycerides (<150) mg/dL HDL Cholesterol (40-60) mg/dL Urine Protein (Negative) Assessment and Plan (1) Left acute arterial ischemic stroke, MCA (middle cerebral artery) Current Visit: No Status: Acute Code(s): I63.512 - CEREB INFRC D/T UNSP OCCLS OR STENOS OF LEFT MID CEREB ART SNOMED Code(s): 438771690 Plan: Impression: 1. Gait disturbance. 2. Stroke result in left hemiparesthesias with history of previous stroke. 3. Chronic pain patient of mine. 4. Diabetes treated 5. Hypertension. 6. Dyslipidemia. Comments and plan: At this time speech ongoing in PT and OT prescribed. We'll follow for possible need and benefit of inpatient rehab pending safety concerns noted by therapists. Patient seems agreeable to inpatient rehab if necessary.
--- NOTE | 2019-10-10 14:05 | US ---
EXAMINATION TYPE: US kidneys/renal and bladder DATE OF EXAM: 10/10/2019 COMPARISON: Complete abdominal ultrasound April 20, 2015 CLINICAL HISTORY: sheldon. Abnormal renal lab values. EXAM MEASUREMENTS: Right Kidney: 9.2 x 5.1 x 3.8 cm Left Kidney: 11.5 x 4.8 x 5.0 cm Right Kidney: No hydronephrosis or masses seen Left Kidney: Small inferior cyst measuring 0.8cm Bladder: not fully distended Cortical thinning bilaterally. Mild pyelocaliectasis left kidney. No nephrolithiasis is seen. The uri nary bladder is poorly distended. Bilateral ureteral jets are not seen. IMPRESSION: Suspect new mild left-sided hydronephrosis. Consider further workup.
[2019-10-10 14:14] LABS: Hemoglobin A1C 5.1 % (4.0-6.0)
--- NOTE | 2019-10-10 14:32 | MR ---
"EXAMINATION TYPE: MR brain wo con DATE OF EXAM: 10/10/2019 COMPARISON: Prior MRI brain December 11, 2017 HISTORY: Left sided weakness. Sudden onset. Acute CVA TECHNIQUE: Multiplanar, multisequence imaging of the brain and brainstem is performed without IV cont rast. FINDINGS: Diffusion weighted images demonstrate a 1.3 cm subcortical area of increased signal diffusion weighte d images with diminished signal ADC mapping that shows T2 hyperintensity consistent with evolving acu te infarct right parietal lobe seen best image 192 series 305. Some inferior extension to level of th e posterior right parisi radiata image 176 noted. Background diffuse ventricular and sulcal prominence with scattered tiny foci of T2 hyperintensity th roughout the deep and periventricular white matter. Midline structures demonstrate normal morphology. The craniocervical junction appears within normal limits. Normal vascular flow voids are present. Mild mucosal thickening involving ethmoid sinuses nga aterally. IMPRESSION: 1. Evolving acute infarct right parietal lobe in the posterior watershed distribution. 2. Background moderate diffuse cerebral atrophy and chronic small vessel ischemic change redemonstrat ed without significant interval progression. A [place] level critical message alert has been initiated for Chu Guzman MD via the [employer] 36 0 | Critical Results System on 10/10/2019 2:30 PM. This message alert has been sent to Chu Guzman MD via the preferences provided by the clinician for the receipt of Radiology Critical Findings. [facility] ID [id number]."
--- NOTE | 2019-10-10 16:11 | P.CNOR ---
History of Present Illness - [facility] Consult date: 10/10/19 Consult reason: other History of present illness: Patient is a 74-year-old male who was admitted to [facility] yesterday with suspicion of a stroke/TIA, he presented with severe left sided weakness of both the upper extremity and lower extremity along with slurred speech. Apparently the patient fell 3 or 4 times yesterday after the weakness. During the fall he did land on his left hand/arm. Multiple lab test and imaging test were done, multiple consults have been placed, this to include neurology, nephrology and our orthopedic group. X-rays of the left hand demonstrated a mild subluxation of the third MCP joint. Patient was evaluated today at bedside, he is resting comfortably. He continues to have weakness with regards to the left upper extremity, it's predominantly in the hand. He has a hard time extending all the fingers, and he is able to slowly make a fist. Discomfort noted over the first second and third MCP joint. Patient denies any previous surgery involving the left upper extremity. He has no other orthopedic complaints at this time. Review of Systems Constitutional: Reports as per [facility] Past Medical History Past Medical History: Diabetes Mellitus, Hyperlipidemia, Hypertension History of Any Multi-Drug Resistant Organisms: None Reported Past Surgical History: Tonsillectomy Additional Past Surgical History / Comment(s): mole removal Past Anesthesia/Blood Transfusion Reactions: No Reported Reaction Past Psychological History: No Psychological Hx Reported Smoking Status: Current every day smoker Past Alcohol Use History: None Reported Past Drug Use History: None Reported - Past Family History Sister(s) History Unknown: Yes Medications and Allergies Home Medications Medication Instructions Recorded Confirmed Type Atorvastatin [Lipitor] 40 mg PO DAILY 12/08/17 10/09/19 History amLODIPine [Norvasc] 5 mg PO DAILY 12/08/17 10/09/19 History HYDROcodone/APAP 10-325MG [[place] 1 tab PO QID 12/10/17 10/09/19 History 10-325] Ibuprofen [Motrin] 800 mg PO TID PRN 10/09/19 10/09/19 History Losartan Potassium [Cozaar] 100 mg PO DAILY 10/09/19 10/09/19 History metFORMIN HCL 1,000 mg PO BID-W/MEALS 10/09/19 10/09/19 History Allergies Allergy/AdvReac Type Severity Reaction Status Date / Time No Known Allergies Allergy Verified 10/09/19 12:44 Physical Examination Left upper extremity: Obvious ecchymosis present on the dorsum of the left hand, there is a abrasion noted over the third MCP joint. No significant swelling present in the hand His sensory exam to light touch throughout the hand is intact, there are a few areas of sensory defect noted in the tips of the fingers. He is able to slowly make a fist, he has a hard time extending all the fingers\ Radial pulses 2+ No tenderness with palpation along the forearm, elbow, shoulder Patient is able to extend and flex the elbow with no difficulty, he is able to elevate the arm with both for elevation and abduction of the shoulder to at least 150 with no pain Results - Labs Labs: Abnormal Lab Results - Last 24 Hours (Table) 10/10/19 10/10/19 10/10/19 Range/Units 05:45 05:45 07:26 RBC 3.83 L (4.30-5.90) m/uL Hgb 12.3 L (13.0-17.5) gm/dL Hct 36.9 L (39.0-53.0) % Lymphocytes # 0.9 L (1.0-4.8) k/uL Chloride 109 H (98-107) mmol/L Carbon Dioxide 19 L (22-30) mmol/L BUN 35 H (9-20) mg/dL Creatinine 2.27 H (0.66-1.25) mg/dL POC Glucose (mg/dL) 101 H (75-99) mg/dL Triglycerides 153 H (<150) mg/dL HDL Cholesterol 30 L (40-60) mg/dL H & H 10/09/19 10/10/19 Range/Units 11:34 05:45 Hgb 12.8 L 12.3 L (13.0-17.5) gm/dL Hct 39.1 36.9 L (39.0-53.0) % Coagulation 10/09/19 Range/Units 11:34 INR 1.0 (<1.2) Result Diagrams: 10/10/19 05:45 10/10/19 05:45 - Diagnostic results Wrist/Hand x-ray: report reviewed, image reviewed (Images demonstrated arthritic changes of the third MCP joint, with mild subluxation) Assessment and Plan Assessment: Left hand abrasion Left third MCP joint osteoarthritis Multiple medical comorbidities Plan: I was able to discuss the case, including both physical exam findings and imaging studies my attending Dr. Hunter. No orthopedic surgical intervention recommended. X-ray findings are likely chronic due to the arthritic changes that are present Local wound care to the abrasion, this to include antibiotic ointment and light bandage Neurologic symptoms from likely acute stroke affecting motor function of the left hand Other medical especially recommendations Recommend follow-up in the outpatient setting with Dr. Hunter in the next 2 weeks for evaluation Time with Patient: Less than 30
--- NOTE | 2019-10-10 18:59 | P.PN ---
Subjective Progress Note Date: 10/10/19 Patient denies any new neurological symptoms. Continues to have weakness of the left side. Objective - Vital Signs Vital signs: Vital Signs Temp 97.4 F L 10/10/19 16:30 Pulse 64 10/10/19 16:30 Resp 18 10/10/19 16:30 BP 184/84 10/10/19 16:30 Pulse Ox 99 10/10/19 16:30 Intake & Output 10/09/19 10/10/19 10/10/19 18:59 06:59 18:59 Intake Total 360 1275 Balance 360 1275 Weight 87.09 kg 85.5 kg 85.5 kg Intake: Intake, IV Titration 600 Amount Sodium Chloride 0.9% 1, 600 000 ml @ 75 mls/hr IV . [id number] [facility] Rx#:[id number] Oral 360 675 Other: # Voids 4 1 2 - Exam Patient's mental status, speech and language functions are normal. Cranial nerves are normal. Patient has left pronator drift. The strength is weak in the left front office spec. Proximally the strength appears normal. Patient is ataxic for [id number] on the left. - Labs CBC & Chem 7: 10/10/19 05:45 10/10/19 05:45 Labs: Abnormal Lab Results - Last 24 Hours (Table) 10/10/19 10/10/19 10/10/19 Range/Units 05:45 05:45 07:26 RBC 3.83 L (4.30-5.90) m/uL Hgb 12.3 L (13.0-17.5) gm/dL Hct 36.9 L (39.0-53.0) % Lymphocytes # 0.9 L (1.0-4.8) k/uL Chloride 109 H (98-107) mmol/L Carbon Dioxide 19 L (22-30) mmol/L BUN 35 H (9-20) mg/dL Creatinine 2.27 H (0.66-1.25) mg/dL POC Glucose (mg/dL) 101 H (75-99) mg/dL Triglycerides 153 H (<150) mg/dL HDL Cholesterol 30 L (40-60) mg/dL Assessment and Plan Assessment: * Acute ischemic stroke involving the posterior right parietal lobe, with monoparesis with involvement of the distal left upper limb. Possible embolic, probably from atherosclerotic cerebrovascular disease. Rule out cardioembolic source. * CTA of head and neck showed 50% stenosis of the right ICA, possible symptomatic. * Hypertension * Diabetes * Hyperlipidemia * 50+ pack-year of tobacco use. Plan: * MRI of the brain revealed evolving acute infarct right posterior parietal lobe. * Continue dual antiplatelet medications for 21 days, then will stay on monotherapy with aspirin 81 mg. * Start Pepcid for gastric ulcer prophylaxis. * Lipid panel with cholesterol 106, LDL 45, HDL 30 and triglycerides 153, hemoglobin A1c 5.1. Continue statins. * 2-D echo still pending. * Permissible hypertension for 24-48 hours. * Telemetric monitoring reveals sinus rhythm with sinus bradycardia in the 50s. No A. fib. * PT and OT evaluate gait. * Strongly recommended tobacco cessation. Patient states he has smoked 1-1/2 pack per day for 50 years. Will need some counseling.
[2019-10-10] MEDS: FAMOTIDINE 20 MG TAB PO SCH (19:39)
[2019-10-10 20:05] LABS: Glucose,Whole Blood 181 mg/dL (75-99)
[2019-10-11 05:53] LABS: Glucose,Whole Blood 118 mg/dL (75-99)
[2019-10-11 07:09] LABS: Potassium 4.5 mmol/L (3.5-5.1)
[2019-10-11] MEDS: ASPIRIN 81 MG PO SCH (08:46)
[2019-10-11] MEDS: CLOPIDOGREL 75 MG TAB PO SCH (08:46)
[2019-10-11] MEDS: FAMOTIDINE 20 MG TAB PO SCH (08:46)
[2019-10-11] MEDS: ATORVASTATIN 40 MG TAB PO SCH (08:46)
[2019-10-11] MEDS: amLODIPine 10 MG TAB PO SCH (08:47)
[2019-10-11] MEDS: HYDROcodone/APAP 10-325MG 1 EACH TAB PO PRN (09:00)
--- NOTE | 2019-10-11 09:36 | P.PN ---
Subjective this is a pleasant 74 years old male with past medical history of hypertension, hyperlipidemia, diabetes mellitus, previous CVA/TIA.presents with left upper lower extremity weakness of one-day duration is started at 7:30 in the morning. Associated with some numbness in the hand, associated with slurred speech. However patient denies blurred vision, no swallowing difficulty. Because of weakness patient fell about 3-4 times and has abrasion on the dorsum of the left hand In 2018 he had similar stroke/TIA on the same side with left hemiparesis however that weakness has resolved completely. However patient continued to smoke about 1.5 pack per day of that is adherent to treatment of his baby aspirin. (Confirmed by patient and son in law at bedside). He denies alcohol or illicit drugs. Patient states that his slurred speech has resolved and his left sided weakness is only slightly better than when he came to the emergency room The emergency room patient was found not a candidate for TPA after discussing with the stroke neurologist on-call. Patient states that he noticed he is voiding a lot denies dysuria, no chest pain or coughing or abdominal pain, no nausea vomiting vitals are stable. Labs including CBC, INR, BMP and liver enzymes were unremarkable except for increased creatinine of 2.5, baseline creatinine is 1.3- 1.8 CT of the brain: No acute processes by radiologist. Chest x-ray: no acute process. CTA of the head and neck showing no flow limiting stenosis of bilateral carotid bifurcations. Narrowing on the right from atheromatous plaquing approaching 50%, this is less on the left side. Normal [place] s. EKG showing normal sinus rhythm at [address]-T changes. in the emergency room he got normal saline 500 mL bolus and started on 75 mL/h 10/10/2019 Patient still complaining of from left upper extremity weakness similar to yesterday, however today he said in his left leg is fine and he can been treated with no difficulty. He still has a bruise on the dorsum of his left hand and x- ray showing mild . vitals are labs are stable, his creatinine is 2.27, continue with normal saline 75 mL/h, urologist recommended MRI of the brain and echocardiogram which are pending. we going to call orthopedic consult for his left hand lesion. patient today confirm to me he is DO NOT RESUSCITATE, he has capacity for medical decision 10/11/2019 Physician presents to have weakness in his left hand. Is appreciated on the dorsum of his left hand is improving, and his thirds MPJ subluxation is evaluated by orthopedic team who think it is due to degenerative joint disease presented. No new neurological symptoms.\ Brain MRI showing acute right parietal lobe infarction Workup revealed 50% stenosis in the right coronary artery, vascular surgery was called. His creatinine is improving 2.27 down to 1.93, keep normal saline at 75 mL/h, call urology for new mild left hydronephrosis by radiologist Physical therapy recommended RONNIE versus IR, however patient refused to go to rehab, risks benefits and alternatives were explained for the patient and he is reconsidering. His blood pressure is better controlled today at 133/62 . it has been more than 48 hours for permissive hypertensionCoronary review of systems CONSTITUTIONAL: No fever, no malaise, no fatigue. HEENT: No recent visual problems or hearing problems. Denied any sore throat. CARDIOVASCULAR: No orthopnea, PND, no palpitations, no syncope. PULMONARY: No shortness of breath, no cough, no hemoptysis. GASTROINTESTINAL: No diarrhea, no nausea, no vomiting, no abdominal pain. Normoactive bowel sounds. NEUROLOGICAL: No headaches, no blurred vision HEMATOLOGICAL: Denies any bleeding or petechiae. GENITOURINARY: Denies any burning micturition, frequency, or urgency. MUSCULOSKELETAL/RHEUMATOLOGICAL: Denies any joint pain, swelling, or any muscle pain. ENDOCRINE: Denies any polyuria or polydipsia. Active Medications Generic Name Dose Route Start Last Admin Trade Name Freq PRN Reason Stop Dose Admin Hydrocodone Bitart/Acetaminophen 1 each 10/09/19 17:39 10/11/19 09:00 [place] 10 PO 1 each QID PRN Administration Pain Amlodipine Besylate 10 mg 10/11/19 09:00 10/11/19 08:47 Norvasc PO 10 mg DAILY SOFIA Administration Aspirin 81 mg 10/10/19 09:00 10/11/19 08:46 Aspirin PO 81 mg DAILY SOFIA Administration Atorvastatin Calcium 40 mg 10/10/19 09:00 10/11/19 08:46 Lipitor PO 40 mg DAILY SOFIA Administration Clopidogrel Bisulfate 75 mg 10/09/19 17:15 10/11/19 08:46 Plavix PO 75 mg DAILY SOFIA Administration Famotidine 20 mg 10/10/19 21:00 10/11/19 08:46 Pepcid PO 20 mg BID SOFIA Administration Sodium Chloride 1,000 mls @ 75 mls/hr 10/09/19 12:45 10/10/19 23:09 Saline 0.9% IV 75 mls/hr .[id number] SOF[facility] Administration Naloxone HCl 0.2 mg 10/09/19 13:36 Narcan IV Q2M PRN Opioid Reversal Objective - Vital Signs Vital signs: Vital Signs Temp 98.5 F 10/11/19 03:19 Pulse 68 10/11/19 03:19 Resp 18 10/11/19 03:19 BP 133/62 10/11/19 03:19 Pulse Ox 96 10/11/19 03:19 Intake & Output 10/10/19 10/11/19 10/11/19 18:59 06:59 18:59 Intake Total 1275 240 225 Balance 1275 240 225 Weight 85.5 kg 84.1 kg Intake: Intake, IV Titration 600 Amount Sodium Chloride 0.9% 1, 600 000 ml @ 75 mls/hr IV . [id number] [facility] Rx#:[id number] Oral 675 240 225 Other: # Voids 2 1 1 # Bowel Movements 1 - Exam GENERAL: The patient is alert and oriented x3, not in any acute distress. Well developed, well nourished. HEENT: Pupils are round and equally reacting to light. EOMI. No scleral icterus. No conjunctival pallor. Normocephalic, atraumatic. No pharyngeal erythema. No thyromegaly. CARDIOVASCULAR: S1 and S2 present. No murmurs, rubs, or gallops. PULMONARY: Chest is clear to auscultation, no wheezing or crackles. ABDOMEN: Soft, nontender, nondistended, normoactive bowel sounds. No palpable organomegaly. MUSCULOSKELETAL: No joint swelling or deformity. -EXTREMITIES: No cyanosis, clubbing, or pedal edema. Small abrasion on the dorsum of the left and -NEUROLOGICAL: Alert awake oriented [address], cranial nerves are grossly intact. He has weakness in his left upper extremity, he cannot make a group of his left hand and only slightly he can flex his fingers.he is left lower extremity is much better today SKIN: No rashes. No petechiae - Labs CBC & Chem 7: 10/10/19 05:45 10/11/19 06:33 Labs: Abnormal Lab Results - Last 24 Hours (Table) 10/10/19 10/11/19 10/11/19 Range/Units 20:03 05:48 06:33 Chloride 110 H (98-107) mmol/L Carbon Dioxide 21 L (22-30) mmol/L BUN 34 H (9-20) mg/dL Creatinine 1.93 H (0.66-1.25) mg/dL Glucose 105 H (74-99) mg/dL POC Glucose (mg/dL) 181 H 118 H (75-99) mg/dL Assessment and Plan Assessment: acute stroke secondary to right parietal infarct with left sided hemiparesis and weakness in the left upper and lower extremities 50% stenosis of the right coronary artery Acute kidney injury with new mild left hydronephrosis fall with abrasion on the dorsum of the left hand Nicotine dependence Non-adherence to therapy Diabetes mellitus Hypertension Hyperlipidemia Plan: this is a pleasant 74 years old male who presents with acute stroke, neurology consult, continue with aspirin. Consult vascular surgery for carotid stenosis, consult urologist for left hydronephrosis. Continue with physical therapy, continue with aspirin and Plavix, continue with IV fluids. Labs and medication were reviewed.. Continue same treatment. Continue with symptomatic treatment. Resume home medication. Monitor lytes and vitals. DVT and GI prophylaxis. Further recommendations of the clinical course of the patient DVT prophylaxis: Subcutaneous heparin GI Prophylaxis: Pepcid PT/OT: Pending Prognosis is guarded CODE STATUS: DO NOT RESUSCITATE, confirmed with patient
--- NOTE | 2019-10-11 10:36 | ECHOF ---
Referral Reason:Acute CVA MEASUREMENTS -------- HEIGHT: 177.8 cm WEIGHT: 85.3 kg BP: 132/58 RVIDd: 3.7 cm (< 3.3) IVSd: 1.6 cm (0.6 - 1.1) LVIDd: 3.7 cm (3.9 - 5.3) LVPWd: 1.7 cm (0.6 - 1.1) IVSs: 1.8 cm LVIDs: 2.6 cm LVPWs: 2.0 cm LAESV Index (A-L): 50.49 ml/m Ao Diam: 3.4 cm (2.0 - 3.7) AV Cusp: 1.6 cm (1.5 - 2.6) MV EXCURSION: 17.961 mm (> 18.000) MV EF SLOPE: 49 mm/s (70 - 150) EPSS: 0.3 cm MV E Dusty: 1.29 m/s MV DecT: 298 ms MV A Dusty: 1.31 m/s MV E/A Ratio: 0.98 RAP: 5.00 mmHg RVSP: 38.29 mmHg FINDINGS -------- Sinus rhythm. This was a technically adequate study. The left ventricular size is normal. There is moderate concentric left ventricular hypertrophy. O verall left ventricular systolic function is normal with, an EF between 55 - 60 %. Increased Lap Gr randell II Diastolic Dysfunction. The right ventricle is mildly enlarged. LA is moderately dilated 34-39 ml/m2 The right atrium is mildly enlarged. Interatrial and interventricular septum intact. The aortic valve is trileaflet and appears structurally normal. There is mild to moderate aortic va lve sclerosis. There is no evidence of aortic regurgitation. There is no evidence of aortic steno sis. Moderate mitral annular calcification present. Moderate mitral regurgitation is present. Mild-to- moderate mitral stenosis , with a MVA of {MVA (Planimetry)} (by planimetry) Mild tricuspid regurgitation present. There is mild pulmonary hypertension. The right ventricular systolic pressure, as measured by Doppler, is 38.29mmHg. The aortic root size is normal. Normal inferior vena cava with normal inspiratory collapse consistent with estimated right atrial pre ssure of 5 mmHg. There is no pericardial effusion. CONCLUSIONS -------- 1. Sinus rhythm. 2. This was a technically adequate study. 3. The left ventricular size is normal. 4. There is moderate concentric left ventricular hypertrophy. 5. Overall left ventricular systolic function is normal with, an EF between 55 - 60 %. 6. Increased Lap Grade II Diastolic Dysfunction. 7. The right ventricle is mildly enlarged. 8. LA is moderately dilated 34-39 ml/m2 9. The right atrium is mildly enlarged. 10. Interatrial and interventricular septum intact. 11. The aortic valve is trileaflet and appears structurally normal. 12. There is mild to moderate aortic valve sclerosis. 13. There is no evidence of aortic regurgitation. 14. There is no evidence of aortic stenosis. 15. Moderate mitral annular calcification present. 16. Moderate mitral regurgitation is present. 17. [id number] mitral stenosis. 18. , with a MVA of {MVA (Planimetry)} (by planimetry) 19. Mild tricuspid regurgitation present. 20. There is mild pulmonary hypertension. 21. The right ventricular systolic pressure, as measured by Doppler, is 38.29mmHg. 22. The aortic root size is normal. 23. Normal inferior vena cava with normal inspiratory collapse consistent with estimated right atrial pressure of 5 mmHg. 24. There is no pericardial effusion. BUSINESS MANAGER: Roberta Damon RDCS
--- NOTE | 2019-10-11 12:49 | P.PN ---
Subjective Patient is seen in follow-up for acute kidney injury. Renal function continues to improve. Currently having lunch. No vomiting or diarrhea. Good urine output. Vital signs are stable. General: The patient appeared well nourished and normally developed. HEENT: Head exam is unremarkable. Neck is without jugular venous distension. LUNGS: Lungs are clear to auscultation and percussion. Breath sounds decreased. HEART: Rate and Rhythm are regular. ABDOMEN: Non-tender and non-distended. EXTREMITITES: No clubbing, cyanosis, or edema. Objective - Vital Signs Vital signs: Vital Signs Temp 97.7 F 10/11/19 08:05 Pulse 67 10/11/19 08:05 Resp 18 10/11/19 08:05 BP 145/65 10/11/19 08:05 Pulse Ox 97 10/11/19 08:05 Intake & Output 10/10/19 10/11/19 10/11/19 18:59 06:59 18:59 Intake Total 1275 240 225 Balance 1275 240 225 Weight 85.5 kg 84.1 kg Intake: Intake, IV Titration 600 Amount Sodium Chloride 0.9% 1, 600 000 ml @ 75 mls/hr IV . [id number] [facility] Rx#:[id number] Oral 675 240 225 Other: # Voids 2 1 1 # Bowel Movements 1 - Labs CBC & Chem 7: 10/10/19 05:45 10/11/19 06:33 Labs: Abnormal Lab Results - Last 24 Hours (Table) 10/10/19 10/11/19 10/11/19 Range/Units 20:03 05:48 06:33 Chloride 110 H (98-107) mmol/L Carbon Dioxide 21 L (22-30) mmol/L BUN 34 H (9-20) mg/dL Creatinine 1.93 H (0.66-1.25) mg/dL Glucose 105 H (74-99) mg/dL POC Glucose (mg/dL) 181 H 118 H (75-99) mg/dL Assessment and Plan Plan: assessment: 1. Acute kidney injury mostly prerenal secondary to nonsteroidals further worsened with the use of losartan. Patient also received IV contrast dye on October 08. Creatinine was 2.53 on admission is 1.93 today. UA reveals trace proteinuria. Mild left-sided hydronephrosis noted on kidney ultrasound. Right kidney noted to be smaller in size. 2. Probable acute ischemic stroke. CT angiogram revealed no acute changes. 3. Diabetes mellitus. 4. Benign hypertension. Better controlled. 5. History of tobacco abuse. 6. Metabolic acidosis secondary to acute kidney injury. Better. 7. Diastolic CHF with moderate mitral regurgitation and mild to moderate mitral stenosis. Plan: Decrease normal saline to 50 mL an hour. Can likely Hep-Lock tomorrow. Continue to monitor renal function and urine output.
--- NOTE | 2019-10-11 14:11 | P.GSCN ---
History of Present Illness Consult date: 10/11/19 History of present illness: Patient is a 74-year-old male with a past medical history of hypertension, hyperlipidemia, diabetes, previous CVA who presented to the ER with left upper extremity weakness for approximately 1 day. He continues use 1-1 pack cigars a day and has recently forgotten and not been taking his baby aspirin as previously. Overall he feels his weakness symptomatology slightly improved at this point. He did undergo a computed tomography scan of the brain showing no acute process, a CT angiogram of the head and neck revealing no flow-limiting s tenosis of the bilateral carotid bifurcations, around 50% on the right. No cardiac arrhythmias Past Medical History Past Medical History: Diabetes Mellitus, Hyperlipidemia, Hypertension History of Any Multi-Drug Resistant Organisms: None Reported Past Surgical History: Tonsillectomy Additional Past Surgical History / Comment(s): mole removal Past Anesthesia/Blood Transfusion Reactions: No Reported Reaction Past Psychological History: No Psychological Hx Reported Smoking Status: Current every day smoker Past Alcohol Use History: None Reported Past Drug Use History: None Reported - Past Family History Sister(s) History Unknown: Yes Medications and Allergies Home Medications Medication Instructions Recorded Confirmed Type Atorvastatin [Lipitor] 40 mg PO DAILY 12/08/17 10/09/19 History amLODIPine [Norvasc] 5 mg PO DAILY 12/08/17 10/09/19 History HYDROcodone/APAP 10-325MG [[place] 1 tab PO QID 12/10/17 10/09/19 History 10-325] Ibuprofen [Motrin] 800 mg PO TID PRN 10/09/19 10/09/19 History Losartan Potassium [Cozaar] 100 mg PO DAILY 10/09/19 10/09/19 History metFORMIN HCL 1,000 mg PO BID-W/MEALS 10/09/19 10/09/19 History Allergies Allergy/AdvReac Type Severity Reaction Status Date / Time No Known Allergies Allergy Verified 10/09/19 12:44 Surgical - Exam Vital Signs Temp Pulse Resp BP Pulse Ox 97.9 F 66 18 156/78 97 10/09/19 11:13 10/09/19 11:13 10/09/19 11:13 10/09/19 11:10/09/19 11:13 Gen. a pleasant cooperative male in no acute distress. HEENT is normal cephalic, atraumatic, extraocular motion intact. Slight left facial droop. Heart is regular at this time. Lungs are clear bilaterally. Abdomen is soft. Extremity show no clubbing, cyanosis or edema. There is mild weakness of the left upper extremity although functionally intact. Cranial nerves II through XII otherwise grossly intact. Normal mood and affect. Results CT angiogram of the head and neck is reviewed. No significant flow-limiting stenosis of the bilateral carotid arteries. At this carotid disease somewhere near 50% on the right - Labs 10/10/19 05:45 10/11/19 06:33 Abnormal Lab Results - Last 24 Hours (Table) 10/10/19 10/11/19 10/11/19 Range/Units 20:03 05:48 06:33 Chloride 110 H (98-107) mmol/L Carbon Dioxide 21 L (22-30) mmol/L BUN 34 H (9-20) mg/dL Creatinine 1.93 H (0.66-1.25) mg/dL Glucose 105 H (74-99) mg/dL POC Glucose (mg/dL) 181 H 118 H (75-99) mg/dL Diabetes panel 10/10/19 10/11/19 Range/Units 05:45 06:33 Sodium 137 (137-145) mmol/L Potassium 4.5 (3.5-5.1) mmol/L Chloride 110 H (98-107) mmol/L Carbon Dioxide 21 L (22-30) mmol/L BUN 34 H (9-20) mg/dL Creatinine 1.93 H (0.66-1.25) mg/dL Glucose 105 H (74-99) mg/dL Hemoglobin A1c 5.1 (4.0-6.0) % Calcium 9.0 (8.4-10.2) mg/dL Calcium panel 10/11/19 Range/Units 06:33 Calcium 9.0 (8.4-10.2) mg/dL Pituitary panel 10/11/19 Range/Units 06:33 Sodium 137 (137-145) mmol/L Potassium 4.5 (3.5-5.1) mmol/L Chloride 110 H (98-107) mmol/L Carbon Dioxide 21 L (22-30) mmol/L BUN 34 H (9-20) mg/dL Creatinine 1.93 H (0.66-1.25) mg/dL Glucose 105 H (74-99) mg/dL Calcium 9.0 (8.4-10.2) mg/dL Adrenal panel 10/11/19 Range/Units 06:33 Sodium 137 (137-145) mmol/L Potassium 4.5 (3.5-5.1) mmol/L Chloride 110 H (98-107) mmol/L Carbon Dioxide 21 L (22-30) mmol/L BUN 34 H (9-20) mg/dL Creatinine 1.93 H (0.66-1.25) mg/dL Glucose 105 H (74-99) mg/dL Calcium 9.0 (8.4-10.2) mg/dL Assessment and Plan Assessment: Right CVA Left upper extremity weakness secondary to #1 Approximate 50% carotid stenosis Tobacco abuse Medical noncompliance with medications Plan: At this time I will order an ultrasound to get more precise values as to the velocity and narrowing, if there does appear to be close to 60% stenosis, he would be a candidate for intervention. Given the low degree of atherosclerotic disease on computed tomography scan, would favor medical management if that were truly the case. It was discussed with the patient and he is hesitant about going forward surgery to begin was given his mother had similar surgeries and supposedly from a carotid artery surgery that had issues with bleeding. At this time he should be on aspirin, Plavix and a statin medication. He is to quit smoking, this was discussed with him for greater than 20 minutes.
--- NOTE | 2019-10-11 14:37 | P.PN ---
Subjective Progress Note Date: 10/11/19 Patient denies any new neurological symptoms. Continues to have weakness of the left hand. Objective - Vital Signs Vital signs: Vital Signs Temp 97.7 F 10/11/19 08:05 Pulse 67 10/11/19 08:05 Resp 18 10/11/19 08:05 BP 145/65 10/11/19 08:05 Pulse Ox 97 10/11/19 08:05 Intake & Output 10/10/19 10/11/19 10/11/19 18:59 06:59 18:59 Intake Total 1275 240 343 Balance 1275 240 343 Weight 85.5 kg 84.1 kg Intake: Intake, IV Titration 600 Amount Sodium Chloride 0.9% 1, 600 000 ml @ 50 mls/hr IV . Q20H SOFIA Rx#:[id number] Oral 675 240 343 Other: # Voids 2 1 3 # Bowel Movements 1 - Exam Patient's mental status, speech and language functions are normal. Cranial nerves are normal. Patient has left pronator drift. 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 Proximally the strength is normal in the biceps triceps and deltoid. Patient is at least moderately ataxic for [id number] on the left. Strength is normal in bilateral lower limbs. Sensations are equal bilaterally. Patient states he has been walking fairly stable although has been using a walker. - Labs CBC & Chem 7: 10/10/19 05:45 10/11/19 06:33 Labs: Abnormal Lab Results - Last 24 Hours (Table) 10/10/19 10/11/19 10/11/19 Range/Units 20:03 05:48 06:33 Chloride 110 H (98-107) mmol/L Carbon Dioxide 21 L (22-30) mmol/L BUN 34 H (9-20) mg/dL Creatinine 1.93 H (0.66-1.25) mg/dL Glucose 105 H (74-99) mg/dL POC Glucose (mg/dL) 181 H 118 H (75-99) mg/dL Assessment and Plan Assessment: * Acute ischemic stroke involving the posterior right parietal lobe, with monoparesis with involvement of the distal left upper limb. Possible embolic, probably from atherosclerotic cerebrovascular disease. Rule out cardioembolic source. * CTA of head and neck showed 50% stenosis of the right ICA, possible symptomatic. * Hypertension * Diabetes * Hyperlipidemia * 50+ pack-year of tobacco use. Plan: * MRI of the brain revealed evolving acute infarct right posterior parietal lobe. * Continue dual antiplatelet medications for 21 days, then will stay on monotherapy with aspirin 81 mg. * Start Pepcid for gastric ulcer prophylaxis. * Lipid panel with cholesterol 106, LDL 45, HDL 30 and triglycerides 153, hemoglobin A1c 5.1. Continue statins. * 2-D echo revealed moderate concentric LVH. EF 55-60%. Left atrium is moderately dilated. Mild to moderate aortic wall sclerosis without stenosis. Moderate mitral regurgitation. Mild to moderate mitral stenosis. Consider cardiology evaluation to rule out embolic source, if felt necessary by IM. * Telemetric monitoring shows no atrial fibrillation. * Strongly recommended tobacco cessation. Patient states he has smoked 1-1/2 pack per day for 50 years. Will need some counseling. * Vascular surgery input appreciated. Patient underwent carotid Doppler. * Neurologically clear otherwise.
--- NOTE | 2019-10-11 15:39 | US ---
EXAMINATION TYPE: US carotid duplex BILAT DATE OF EXAM: 10/11/2019 COMPARISON: NONE CLINICAL HISTORY: CVA. EXAM MEASUREMENTS: RIGHT: Peak Systolic Velocity (PSV) cm/sec ----- Right CCA: 78 ----- Right ICA: 185 ----- Right ECA: 150 ICA/CCA ratio: 2.4 RIGHT: End Diastole cm/sec ----- Right CCA: 10 ----- Right ICA: 34 ----- Right ECA: 9 LEFT: Peak Systolic Velocity (PSV) cm/sec ----- Left CCA: 59 ----- Left ICA: 70 ----- Left ECA: 118 ICA/CCA ratio: 1.2 LEFT: End Diastole cm/sec ----- Left CCA: 12 ----- Left ICA: 18 ----- Left ECA: 9 VERTEBRALS (direction of flow): Right Vertebral: Antegrade Left Vertebral: Antegrade Rhythm: Normal IMPRESSION: Moderate to severe plaque with slight velocity increase seen on right, no significant ve locity increase seen on left. Criteria for Assigning % of Stenosis / Diameter reduction (Estimation based on the indirect measurements of the internal carotid artery velocities (ICA PSV). 1. Normal (no stenosis)=ICA PSV < 125 cm/s: ratio < 2.0: ICA EDV<40 cm/s. 2. Less than 50% stenosis=ICA PSV < 125 cm/s: ratio < 2.0: ICA EDV<40 cm/s. 3. 50 to 69% stenosis=ICA PSV of 125 to 230 cm/s: ration 2.0 ? 4.0: ICA EDV 40-100 cm/s. 4. Greater than 70% stenosis to near occlusion= ICA PSV > 230 cm/s: ratio > 4.0: ICA EDV > 100 cm/s. 5. Near occlusion= ICA PSV velocities may be low or undetectable: variable ratio and ICA EDV. 6. Total occlusion=unable to detect flow.
[2019-10-11] MEDS: SODIUM CHLORIDE 0.9% 1,000 ML IV SCH (20:22)
[2019-10-11] MEDS: HEPARIN SODIUM,PORCINE 5,000 UNIT/ML 1 ML VIAL SQ SCH (20:29)
--- NOTE | 2019-10-12 08:42 | P.CRDCN ---
History of Present Illness Consult date: 10/12/19 Reason for Consult (text): r/o embolic source for CVA History of present illness: Patient is a 74-year-old male with a past medical history of hypertension, hyperlipidemia, diabetes, previous CVA in 2018 who presented to the ER with left upper extremity weakness for approximately 1 day. He continues use 1-1/2 pack per day of cigarettes. Patient has been diagnosed with acute ischemic CVA in the posterior right parietal region on MRI. CT angiogram of the head and neck revealing no flow-limiting stenosis of the bilateral carotid bifurcations, around 50% on the right. Echocardiogram revealed EF of 55-60% with mild to moderate aortic sclerosis without stenosis, moderate mitral regurgitation, minimal to moderate mitral stenosis. 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 He does not follow with a filter tip catcher. He has had a stress test many years ago and it apparently was normal. Patient presented with left upper extremity weakness which has improved. Consult with cardiology requested to rule out embolic source of stroke and for abnormal echocardiogram. Patient currently denies having any chest pain, shortness of breath, palpitations, lighthea dedness, dizziness. Review Of Systems: Constitutional: No fever, no chills, no night sweats. No weight change. No weakness, fatigue or lethargy. No daytime sleepiness. EENT: No headache. No blurred vision or double vision, no loss of vision. No loss of Hearing, no ringing in the ears, no dizziness. No nasal drainage or congestion. No epistaxis. No sore throat. Lungs: No shortness of breath, cough, no sputum production. No wheezing. Cardiovascular: No chest pain, no lower extremity edema. No palpitations. No paroxysmal nocturnal dyspnea. No orthopnea. No lightheadedness or dizziness. No syncopal episodes. Abdominal: No abdominal pain. No nausea, vomiting. No diarrhea. No c onstipation. No bloody or tarry stools.. No loss of appetite. Genitourinary: No dysuria, increased frequency, urgency. No urinary retention. Musculoskeletal: No myalgias. No muscle weakness, no gait dysfunction, no frequent falls. No back pain. No neck pain. Integumentary: No wounds, no lesions. No rash or pruritus. No unusual bruising. No change in hair or nails. Neurologic: No aphasia. No facial droop. No change in mentation. No head injury. No headache. Left upper extremity weakness. Psychiatric: No depression. No anxiety. No mood swings. Endocrine: No abnormal blood sugars. No weight change. No excessive sweating or thirst. No cold intolerance. No weight change. Gen: This is a 74-year-old male. He is sitting on edge of bed and appears to be comfortable and in no acute distress. VS: Patient has been afebrile, heart rate 57, blood pressure 130/66, pulse ox 97% on room air. HEENT: Head is atraumatic, normocephalic. Pupils equal, round. Sclerae is anicteric. [place]. NECK: Supple. No JVD. No lymphadenopathy. No thyromegaly. LUNGS: Clear to auscultation. No wheezes or rhonchi. No intercostal retractions. HEART: Regular rate and rhythm. No murmur. ABDOMEN: Soft. Bowel sounds are present. No masses. No tenderness. EXTREMITIES: No pedal edema. No calf tenderness. NEUROLOGICAL: Patient is awake, alert and oriented x3. Cranial nerves 2 through 12 are grossly intact. 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 Assessment: Acute ischemic CVA in the posterior right parietal region, rule out embolic source of stroke Valvular heart disease with moderate aortic sclerosis, moderate mitral regurgitation, minimal to moderate mitral stenosis No evidence of atrial fibrillation History of hypertension, hyperlipidemia and diabetes Right coronary artery disease of 50% possibly contributing to CVA Plan: Continue aspirin 81 mg daily, Plavix 75 mg daily, Lipitor 40 mg daily Continue Norvasc 10 mg daily Patient will be scheduled for ETHEL, most likely on Monday Further recommendations to follow based upon clinical course Thank you kindly for this consultation Nurse practitioner note has been reviewed, I agree with documented findings and plan of care. Patient was seen and examined. Past Medical History Past Medical History: Diabetes Mellitus, Hyperlipidemia, Hypertension History of Any Multi-Drug Resistant Organisms: None Reported Past Surgical History: Tonsillectomy Additional Past Surgical History / Comment(s): mole removal Past Anesthesia/Blood Transfusion Reactions: No Reported Reaction Past Psychological History: No Psychological Hx Reported Smoking Status: Current every day smoker Past Alcohol Use History: None Reported Past Drug Use History: None Reported - Past Family History Sister(s) History Unknown: Yes Medications and Allergies Home Medications Medication Instructions Recorded Confirmed Type Atorvastatin [Lipitor] 40 mg PO DAILY 12/08/17 10/09/19 History amLODIPine [Norvasc] 5 mg PO DAILY 12/08/17 10/09/19 History HYDROcodone/APAP 10-325MG [[place] 1 tab PO QID 12/10/17 10/09/19 History 10-325] Ibuprofen [Motrin] 800 mg PO TID PRN 10/09/19 10/09/19 History Losartan Potassium [Cozaar] 100 mg PO DAILY 10/09/19 10/09/19 History metFORMIN HCL 1,000 mg PO BID-W/MEALS 10/09/19 10/09/19 History Allergies Allergy/AdvReac Type Severity Reaction Status Date / Time No Known Allergies Allergy Verified 10/09/19 12:44 Physical Exam Vitals: Vital Signs Temp Pulse Resp BP Pulse Ox 10/12/19 03:56 98.3 F 57 L 16 130/66 97 10/11/19 23:52 98.2 F 60 18 149/67 95 10/11/19 20:00 98.2 F 70 16 154/83 96 10/11/19 16:10 98.0 F 59 L 18 145/65 98 10/11/19 11:55 98.4 F 60 18 186/81 96 10/11/19 08:05 97.7 F 67 18 145/65 97 Intake and Output 10/11/19 10/12/19 10/12/19 22:59 06:59 14:59 Intake Total 500 Balance 500 Intake: Oral 500 Other: # Voids 1 2 Weight 83.5 kg Results 10/12/19 09:08 10/12/19 09:08 Current Medications Generic Name Dose Route Start Last Admin Trade Name Freq PRN Reason Stop Dose Admin Hydrocodone Bitart/Acetaminophen 1 each 10/09/19 17:39 10/11/19 09:00 [place] 10 PO 1 each QID PRN Administration Pain Amlodipine Besylate 10 mg 10/11/19 09:00 10/11/19 08:47 Norvasc PO 10 mg DAILY SOFIA Administration Aspirin 81 mg 10/10/19 09:00 10/11/19 08:46 Aspirin PO 81 mg DAILY SOFIA Administration Atorvastatin Calcium 40 mg 10/10/19 09:00 10/11/19 08:46 Lipitor PO 40 mg DAILY SOFIA Administration Clopidogrel Bisulfate 75 mg 10/09/19 17:15 10/11/19 08:46 Plavix PO 75 mg DAILY SOFIA Administration Famotidine 20 mg 10/12/19 09:00 Pepcid PO DAILY SOFIA Heparin Sodium (Porcine) 5,000 unit 10/11/19 21:00 10/11/19 20:29 Heparin SQ 5,000 unit Q12HR SOFIA Administration Sodium Chloride 1,000 mls @ 50 mls/hr 10/09/19 12:45 10/11/19 20:22 Saline 0.9% IV 50 mls/hr .Q20H SOFIA Administration Naloxone HCl 0.2 mg 10/09/19 13:36 Narcan IV Q2M PRN Opioid Reversal Intake and Output 10/11/19 10/12/19 10/12/19 22:59 06:59 14:59 Intake Total 500 Balance 500 Intake: Oral 500 Other: # Voids 1 2 Weight 83.5 kg 10/10/19 05:45 10/11/19 06:33
[2019-10-12] MEDS: ATORVASTATIN 40 MG TAB PO SCH (09:02)
[2019-10-12] MEDS: FAMOTIDINE 20 MG TAB PO SCH (09:02)
[2019-10-12] MEDS: amLODIPine 10 MG TAB PO SCH (09:02)
[2019-10-12] MEDS: HEPARIN SODIUM,PORCINE 5,000 UNIT/ML 1 ML VIAL SQ SCH ×2 (09:02→19:46)
[2019-10-12] MEDS: CLOPIDOGREL 75 MG TAB PO SCH (09:02)
[2019-10-12] MEDS: ASPIRIN 81 MG PO SCH (09:03)
[2019-10-12] MEDS: SODIUM CHLORIDE 0.9% 1,000 ML IV SCH (09:04)
--- NOTE | 2019-10-12 09:58 | P.PN ---
Subjective Progress Note Date: 10/12/19 Pt seen and examined, managing consultant notes reviewed. Pt reports still some LUE weakness. No CP/SOB. Still uncertain if he wants to undergo surgical intervention for carotid artery stenosis. Objective - Vital Signs Vital signs: Vital Signs Temp 98.0 F 10/12/19 09:10 Pulse 73 10/12/19 09:10 Resp 16 10/12/19 09:10 BP 143/64 10/12/19 09:10 Pulse Ox 98 10/12/19 09:10 Intake & Output 10/11/19 10/12/19 10/12/19 18:59 06:59 18:59 Intake Total 603 240 Balance 603 240 Weight 83.5 kg Intake: Oral 603 240 Other: Voiding Method Toilet # Voids 3 2 # Bowel Movements 1 - Exam NAD, Normocephalic, atraumatic. EOMI. RRR at this time. Lungs clear. Abd soft. LUE weakness as previous. Normal mood and affect - Labs CBC & Chem 7: 10/10/19 05:45 10/11/19 06:33 - Imaging and Cardiology Carotid ultrasound reviewed. Right ICA peak systolic velocity 185, end- diastolic velocity 34, ratio of 2.4 Assessment and Plan Assessment: Right CVA Left upper extremity weakness secondary to #1 SOFÍA stenosis ~50% on CTA, likely 50-60% on US Tobacco abuse Medical noncompliance with medications Plan: Ultrasound confirms 50-60% stenosis. Again the patient remained hesitant about going forward with surgery although at this time it is clinically indicated. He is also having evaluations by cardiology and will be undergoing a ETHEL in the near future. From my standpoint needs to be discharged on aspirin, Plavix and a statin medication unless his anticoagulation is upgraded after the ETHEL. I am follow up with him and office upon discharge and we can further discuss plans for surgical intervention to keep him within the 2 week window. This was discussed with the patient at length. Seemingly understands the plan and is willing to proceed.
[2019-10-12 10:09] LABS: Basophils # (A) 0.1 k/uL (0-0.2); Basophils % (A) 1 %; Eosinophils # (A) 0.2 k/uL (0-0.7); Eosinophils % (A) 3 %; HCT 42.5 % (39.0-53.0); HGB 13.2 gm/dL (13.0-17.5); Lymphocytes # (A) 0.5 k/uL (1.0-4.8); Lymphocytes % (A) 9 %; MCH 30.8 pg (25.0-35.0); MCHC 31.1 g/dL (31.0-37.0); Mean Platelet Volume 7.3; Monocytes # (A) 0.2 k/uL (0-1.0); Monocytes % (A) 3 %; Neutrophils # (A) 5.2 k/uL (1.3-7.7); Neutrophils % (A) 84 %; Platelet Count 211 k/uL (150-450); RBC 4.29 m/uL (4.30-5.90); RDW 13.1 % (11.5-15.5); WBC 6.3 k/uL (3.8-10.6)
[2019-10-12 10:20] LABS: Calcium 9.3 mg/dL (8.4-10.2); Potassium 4.6 mmol/L (3.5-5.1)
--- NOTE | 2019-10-12 13:59 | P.PN ---
Subjective this is a pleasant 74 years old male with past medical history of hypertension, hyperlipidemia, diabetes mellitus, previous CVA/TIA.presents with left upper lower extremity weakness of one-day duration is started at 7:30 in the morning. Associated with some numbness in the hand, associated with slurred speech. However patient denies blurred vision, no swallowing difficulty. Because of weakness patient fell about 3-4 times and has abrasion on the dorsum of the left hand In 2018 he had similar stroke/TIA on the same side with left hemiparesis however that weakness has resolved completely. However patient continued to smoke about 1.5 pack per day of that is adherent to treatment of his baby aspirin. (Confirmed by patient and son in law at bedside). He denies alcohol or illicit drugs. Patient states that his slurred speech has resolved and his left sided weakness is only slightly better than when he came to the emergency room The emergency room patient was found not a candidate for TPA after discussing with the stroke neurologist on-call. Patient states that he noticed he is voiding a lot denies dysuria, no chest pain or coughing or abdominal pain, no nausea vomiting vitals are stable. Labs including CBC, INR, BMP and liver enzymes were unremarkable except for increased creatinine of 2.5, baseline creatinine is 1.3- 1.8 CT of the brain: No acute processes by radiologist. Chest x-ray: no acute process. CTA of the head and neck showing no flow limiting stenosis of bilateral carotid bifurcations. Narrowing on the right from atheromatous plaquing approaching 50%, this is less on the left side. Normal [place] [facility] [place]. EKG showing normal sinus rhythm at [address]-T changes. in the emergency room he got normal saline 500 mL bolus and started on 75 mL/h 10/10/2019 Patient still complaining of from left upper extremity weakness similar to yesterday, however today he said in his left leg is fine and he can been treated with no difficulty. He still has a bruise on the dorsum of his left hand and x- ray showing mild . vitals are labs are stable, his creatinine is 2.27, continue with normal saline 75 mL/h, urologist recommended MRI of the brain and echocardiogram which are pending. we going to call orthopedic consult for his left hand lesion. patient today confirm to me he is DO NOT RESUSCITATE, he has capacity for medical decision 10/11/2019 Physician presents to have weakness in his left hand. Is appreciated on the dorsum of his left hand is improving, and his thirds MPJ subluxation is evaluated by orthopedic team who think it is due to degenerative joint disease presented. No new neurological symptoms.\ Brain MRI showing acute right parietal lobe infarction Workup revealed 50% stenosis in the right coronary artery, vascular surgery was called. His creatinine is improving 2.27 down to 1.93, keep normal saline at 75 mL/h, call urology for new mild left hydronephrosis by radiologist Physical therapy recommended [facility] versus IR, however patient refused to go to rehab, risks benefits and alternatives were explained for the patient and he is reconsidering. His blood pressure is better controlled today at 133/62 . it has been more than 48 hours for permissive hypertensionCoronary 10/12/2019 Patient will get comfortable, still fill weakness in his left hand, no chest pain or dyspnea. No new weakness. Creatinine stable at 1.98 Patient is agreeable to go to rehab now. I discussed the case with the vascular surgeon Dr. Corbett for stenosis in his carotid artery, patient looks like refusing surgery currently. Dr. Corbett signed off with a recommendation that he follows up as an outpatient in 1-2 weeks, patient informed and he agrees as he confirmed to me he does not want surgery. Cardiology team are planning on ETHEL on Monday Patient currently on aspirin, Plavix and statin as well as Norvasc. review of systems CONSTITUTIONAL: No fever, no malaise, no fatigue. HEENT: No recent visual problems or hearing problems. Denied any sore throat. CARDIOVASCULAR: No orthopnea, PND, no palpitations, no syncope. PULMONARY: No shortness of breath, no cough, no hemoptysis. GASTROINTESTINAL: No diarrhea, no nausea, no vomiting, no abdominal pain. Normoactive bowel sounds. NEUROLOGICAL: No headaches, no blurred vision HEMATOLOGICAL: Denies any bleeding or petechiae. GENITOURINARY: Denies any burning micturition, frequency, or urgency. MUSCULOSKELETAL/RHEUMATOLOGICAL: Denies any joint pain, swelling, or any muscle pain. ENDOCRINE: Denies any polyuria or polydipsia. Active Medications Generic Name Dose Route Start Last Admin Trade Name Freq PRN Reason Stop Dose Admin Hydrocodone Bitart/Acetaminophen 1 each 10/09/19 17:39 10/11/19 09:00 Dante 10 PO 1 each QID PRN Administration Pain Amlodipine Besylate 10 mg 10/11/19 09:00 10/12/19 09:02 Norvasc PO 10 mg DAILY SOFIA Administration Aspirin 81 mg 10/10/19 09:00 10/12/19 09:03 Aspirin PO 81 mg DAILY SOFIA Administration Atorvastatin Calcium 40 mg 10/10/19 09:00 10/12/19 09:02 Lipitor PO 40 mg DAILY SOFIA Administration Clopidogrel Bisulfate 75 mg 10/09/19 17:15 10/12/19 09:02 Plavix PO 75 mg DAILY SOFIA Administration Famotidine 20 mg 10/12/19 09:00 10/12/19 09:02 Pepcid PO 20 mg DAILY SOFIA Administration Heparin Sodium (Porcine) 5,000 unit 10/11/19 21:00 10/12/19 09:02 Heparin SQ 5,000 unit Q12HR SOFIA Administration Sodium Chloride 1,000 mls @ 50 mls/hr 10/09/19 12:45 10/12/19 09:04 Saline 0.9% IV Not Given .Q20H SOFIA Naloxone HCl 0.2 mg 10/09/19 13:36 Narcan IV Q2M PRN Opioid Reversal Objective - Vital Signs Vital signs: Vital Signs Temp 97.3 F L 10/12/19 11:00 Pulse 65 10/12/19 11:00 Resp 18 10/12/19 11:00 BP 158/74 10/12/19 11:00 Pulse Ox 98 10/12/19 09:10 Intake & Output 10/11/19 10/12/19 10/12/19 18:59 06:59 18:59 Intake Total 603 240 240 Output Total 750 Balance 603 240 -510 Weight 83.5 kg Intake: Oral 603 240 240 Output: Urine 750 Other: Voiding Method Toilet # Voids 3 2 1 # Bowel Movements 1 - Exam GENERAL: The patient is alert and oriented x3, not in any acute distress. Well developed, well nourished. HEENT: Pupils are round and equally reacting to light. EOMI. No scleral icterus. No conjunctival pallor. Normocephalic, atraumatic. No pharyngeal erythema. No thyromegaly. CARDIOVASCULAR: S1 and S2 present. No murmurs, rubs, or gallops. PULMONARY: Chest is clear to auscultation, no wheezing or crackles. ABDOMEN: Soft, nontender, nondistended, normoactive bowel sounds. No palpable organomegaly. MUSCULOSKELETAL: No joint swelling or deformity. -EXTREMITIES: No cyanosis, clubbing, or pedal edema. Small abrasion on the dorsum of the left and -NEUROLOGICAL: Alert awake oriented [address], cranial nerves are grossly intact. He has weakness in his left upper extremity, he cannot make a group of his left hand and only slightly he can flex his fingers.he is left lower extremity is much better today SKIN: No rashes. No petechiae - Labs CBC & Chem 7: 10/12/19 09:08 10/12/19 09:08 Labs: Abnormal Lab Results - Last 24 Hours (Table) 10/12/19 10/12/19 Range/Units 09:08 09:08 RBC 4.29 L (4.30-5.90) m/uL Lymphocytes # 0.5 L (1.0-4.8) k/uL BUN 31 H (9-20) mg/dL Creatinine 1.98 H (0.66-1.25) mg/dL Glucose 221 H (74-99) mg/dL Assessment and Plan Assessment: acute stroke secondary to right parietal infarct with left sided hemiparesis and weakness in the left upper and lower extremities 50% stenosis of the right coronary artery Acute kidney injury with new mild left hydronephrosis fall with abrasion on the dorsum of the left hand Nicotine dependence Non-adherence to therapy Diabetes mellitus Hypertension Hyperlipidemia Plan: this is a pleasant 74 years old male who presents with acute stroke, neurology consult, continue with aspirin. Consult vascular surgery for carotid stenosis, consult urologist for left hydronephrosis. Continue with physical therapy, continue with aspirin and Plavix, continue with IV fluids. ETHEL on Monday. Patient refused vascular intervention for his carotid stenosis, patient instructed to follow up as an outpatient as an alternative and he agrees Labs and medication were reviewed.. Continue same treatment. Continue with symptomatic treatment. Resume home medication. Monitor lytes and vitals. DVT and GI prophylaxis. Further recommendations of the clinical course of the patient DVT prophylaxis: Subcutaneous heparin GI Prophylaxis: Pepcid PT/OT: Pending Prognosis is guarded CODE STATUS: DO NOT RESUSCITATE, confirmed with patient
--- NOTE | 2019-10-12 16:33 | XR ---
EXAMINATION TYPE: XR chest 1V DATE OF EXAM: 10/12/2019 COMPARISON: 10/09/2019 HISTORY: Short of breath TECHNIQUE: Single view FINDINGS: Heart and mediastinum are normal. Lungs are clear of consolidation. There is slight coarsen ing of interstitial markings. There is no heart failure. There are chest leads. Costophrenic angles a re clear. IMPRESSION: Mild interstitial density consistent with mild fibrosis not significantly different than last exam. Normal heart. Inspiration improved compared to old exam.
--- NOTE | 2019-10-12 17:06 | PN ---
PROGRESS NOTE Patient is seen for followup for acute kidney injury. Renal function has improved with creatinine about 1.9 from 2.53 on initial admission. Previous creatinine 1.3 in 2018. Currently patient is maintained on IV fluids. He is comfortable. He denies any significant complaints. PHYSICAL EXAMINATION: This morning blood pressure was 143/64, heart rate 73 per minute, he is afebrile. Examination of the heart S1, S2. Examination of the lungs, decreased breath sounds at bases. Abdomen soft, nontender. Examination lower extremities shows no evidence of edema. [employer] exam shows patient is not moving his extremities much. However, he was found to have a left hemiparesis. LABS: Show sodium 137, potassium 4.6, chloride 105, CO2 is 22, BUN 31, creatinine 1.98, hemoglobin 13.2 g/dL. ASSESSMENT: 1. Acute kidney injury, acute tubular necrosis, multifactorial, associated with use of NSAIDs in the setting of hypovolemia, use of angiotensin receptor blockers as well as IV contrast. Renal function currently stable with creatinine 1.9, which is down from 2.5 at peak from this admission. Previous creatinine was 1.3 in November 2018. 2. Chronic kidney disease secondary to nephrosclerosis, NKF stage III. Previous creatinine 1.3 in 2018. 3. Acute right parietal infarct with left hemiparesis. 4. Mild left hydronephrosis noted on ultrasound. Continue to monitor for now. 5. Diabetes. 6. Hypertension. PLAN: Encourage increased oral intake. Check chest x-ray tomorrow. If patient is eating well, we can discontinue the IV fluids. MMODL / IJN: [id number] /
[2019-10-13] MEDS: HEPARIN SODIUM,PORCINE 5,000 UNIT/ML 1 ML VIAL SQ SCH ×2 (07:25→20:05)
[2019-10-13] MEDS: CLOPIDOGREL 75 MG TAB PO SCH (07:25)
[2019-10-13] MEDS: FAMOTIDINE 20 MG TAB PO SCH (07:25)
[2019-10-13] MEDS: ATORVASTATIN 40 MG TAB PO SCH (07:25)
[2019-10-13] MEDS: ASPIRIN 81 MG PO SCH (07:25)
[2019-10-13] MEDS: amLODIPine 10 MG TAB PO SCH (07:25)
[2019-10-13 08:04] LABS: Calcium 8.9 mg/dL (8.4-10.2); Potassium 4.6 mmol/L (3.5-5.1)
[2019-10-13 08:07] LABS: Basophils % (A) 1 %; Eosinophils # (A) 0.2 k/uL (0-0.7); Eosinophils % (A) 4 %; HCT 39.2 % (39.0-53.0); HGB 12.8 gm/dL (13.0-17.5); Lymphocytes # (A) 0.9 k/uL (1.0-4.8); Lymphocytes % (A) 14 %; MCH 31.7 pg (25.0-35.0); MCHC 32.7 g/dL (31.0-37.0); MCV 96.9 fL (80.0-100.0); Mean Platelet Volume 7.5; Monocytes # (A) 0.3 k/uL (0-1.0); Monocytes % (A) 5 %; Neutrophils # (A) 5.1 k/uL (1.3-7.7); Neutrophils % (A) 76 %; Platelet Count 213 k/uL (150-450); RBC 4.04 m/uL (4.30-5.90); RDW 12.9 % (11.5-15.5); WBC 6.7 k/uL (3.8-10.6)
[2019-10-13] MEDS ORDERED: fentaNYL (PF) 50 MCG/ML 2 ML AMP ONE (09:19)
[2019-10-13] MEDS ORDERED: BENZOCAINE SPRAY 1 CAN MUCOUS MEM ONE ×2 (09:20→09:25)
[2019-10-13] MEDS ORDERED: IV FLUID CONTINUATION 1,000 ML IV ONE (09:29)
[2019-10-13] MEDS ORDERED: MIDAZOLAM 2 MG/2 ML VIAL IVP ONE (09:30)
[2019-10-13] MEDS ORDERED: fentaNYL (PF) 50 MCG/ML 2 ML AMP IVP ONE (09:30)
--- NOTE | 2019-10-13 09:52 | P.TEE ---
Date of Procedure: 10/13/19 Preoperative Diagnosis: Unexplained CVA Postoperative Diagnosis: No definite cardiac source of emboli. Moderate to severe plaque in the aorta Description of Procedure(s): INDICATION: CVA, rule out cardiac source of emboli CONSENT:. Verbal consent obtained from patient PROCEDURE:, Patient was brought in to the lab in a fasting state. He was prepped and draped in the usual fashion. He was given about 3 mg of Versed and 50 g of fentanyl. The throat was sprayed with Hurricaine. A lubricated Omni probe was introduced into the oropharynx and was advanced into the esophagus. Multiple views were obtained from the esophagus.: Pulse and continuous-wave Doppler studies were done. Saline bubble injections were also done FINDINGS:. The aorta is tricuspid with minimal thickening. There is trace aortic regurgitation. The aortic root diameter is normal. The aorta showed moderate plaque. The mitral valve appeared to be normal with mild regurgitation. Tricuspid valve showed trace regurgitation. Pulmonic valve appeared to be normal. The interatrial septum appeared to be intact without any spontaneous shunt. Injection of the saline contrast bubble injection did not reveal any crossing of bubbles. Atrial size appeared to be at the lips are normal. Left ventricle size and function appeared within normal. Left atrial appendage is big, but free of any clot. The pulmonary venous flow appeared to be normal IMPRESSION:. #1. No PFO #2. No clot in left atrial appendage. #3. There is a moderate to severe plaque in the aorta #4. Normal left size and function. #6. Grossly normal valvular function PLAN:. Continue current medical therapy and continue with risk factor modification
[2019-10-13] MEDS: SODIUM CHLORIDE 0.9% 1,000 ML IV SCH ×2 (10:00→10:15)
--- NOTE | 2019-10-13 12:58 | P.PN ---
Subjective this is a pleasant 74 years old male with past medical history of hypertension, hyperlipidemia, diabetes mellitus, previous CVA/TIA.presents with left upper lower extremity weakness of one-day duration is started at 7:30 in the morning. Associated with some numbness in the hand, associated with slurred speech. However patient denies blurred vision, no swallowing difficulty. Because of weakness patient fell about 3-4 times and has abrasion on the dorsum of the left hand In 2018 he had similar stroke/TIA on the same side with left hemiparesis however that weakness has resolved completely. However patient continued to smoke about 1.5 pack per day of that is adherent to treatment of his baby aspirin. (Confirmed by patient and son in law at bedside). He denies alcohol or illicit drugs. Patient states that his slurred speech has resolved and his left sided weakness is only slightly better than when he came to the emergency room The emergency room patient was found not a candidate for TPA after discussing with the stroke neurologist on-call. Patient states that he noticed he is voiding a lot denies dysuria, no chest pain or coughing or abdominal pain, no nausea vomiting vitals are stable. Labs including CBC, INR, BMP and liver enzymes were unremarkable except for increased creatinine of 2.5, baseline creatinine is 1.3- 1.8 CT of the brain: No acute processes by radiologist. Chest x-ray: no acute process. CTA of the head and neck showing no flow limiting stenosis of bilateral carotid bifurcations. Narrowing on the right from atheromatous plaquing approaching 50%, this is less on the left side. Normal [place] [facility] [place] EKG showing normal sinus rhythm at [address]-T changes. in the emergency room he got normal saline 500 mL bolus and started on 75 mL/h 10/10/2019 Patient still complaining of from left upper extremity weakness similar to yesterday, however today he said in his left leg is fine and he can been treated with no difficulty. He still has a bruise on the dorsum of his left hand and x- ray showing mild . vitals are labs are stable, his creatinine is 2.27, continue with normal saline 75 mL/h, urologist recommended MRI of the brain and echocardiogram which are pending. we going to call orthopedic consult for his left hand lesion. patient today confirm to me he is DO NOT RESUSCITATE, he has capacity for medical decision 10/11/2019 Physician presents to have weakness in his left hand. Is appreciated on the dorsum of his left hand is improving, and his thirds MPJ subluxation is evaluated by orthopedic team who think it is due to degenerative joint disease presented. No new neurological symptoms.\ Brain MRI showing acute right parietal lobe infarction Workup revealed 50% stenosis in the right coronary artery, vascular surgery was called. His creatinine is improving 2.27 down to 1.93, keep normal saline at 75 mL/h, call urology for new mild left hydronephrosis by radiologist Physical therapy recommended [facility] versus IR, however patient refused to go to rehab, risks benefits and alternatives were explained for the patient and he is reconsidering. His blood pressure is better controlled today at 133/62 . it has been more than 48 hours for permissive hypertensionCoronary 10/12/2019 Patient will get comfortable, still fill weakness in his left hand, no chest pain or dyspnea. No new weakness. Creatinine stable at 1.98 Patient is agreeable to go to rehab now. I discussed the case with the vascular surgeon Dr. Corbett for stenosis in his carotid artery, patient looks like refusing surgery currently. Dr. Corbett signed off with a recommendation that he follows up as an outpatient in 1-2 weeks, patient informed and he agrees as he confirmed to me he does not want surgery. Cardiology team are planning on ETHEL on Monday Patient currently on aspirin, Plavix and statin as well as Norvasc. 10/13/2019 Patient had ETHEL today showing: #1. No PFO #2. No clot in left atrial appendage. #3. There is a moderate to severe plaque in the aorta #4. Normal left size and function. #6. Grossly normal valvular function [place] that patient still have weakness in his left hand. Vitals has been stable. Creatinine is stable at 1.9 so discontinue IV fluids Objective - Vital Signs Vital signs: Vital Signs Temp 97.3 F L 10/13/19 11:22 Pulse 62 10/13/19 11:22 Resp 16 10/13/19 11:22 BP 156/79 10/13/19 11:22 Pulse Ox 96 10/13/19 11:22 Intake & Output 10/12/19 10/13/19 10/13/19 18:59 06:59 18:59 Intake Total 900 180 Output Total 750 300 Balance 150 -120 Weight 82.6 kg Intake: IV 100 Oral 900 80 Output: Urine 750 300 Other: Voiding Method Toilet Toilet Toilet # Voids 2 2 1 - Exam GENERAL: The patient is alert and oriented x3, not in any acute distress. Well developed, well nourished. HEENT: Pupils are round and equally reacting to light. EOMI. No scleral icterus. No conjunctival pallor. Normocephalic, atraumatic. No pharyngeal erythema. No thyromegaly. CARDIOVASCULAR: S1 and S2 present. No murmurs, rubs, or gallops. PULMONARY: Chest is clear to auscultation, no wheezing or crackles. ABDOMEN: Soft, nontender, nondistended, normoactive bowel sounds. No palpable organomegaly. MUSCULOSKELETAL: No joint swelling or deformity. -EXTREMITIES: No cyanosis, clubbing, or pedal edema. Small abrasion on the dorsum of the left and -NEUROLOGICAL: Alert awake oriented [address], cranial nerves are grossly intact. He has weakness in his left upper extremity, he cannot make a group of his left hand and only slightly he can flex his fingers.he is left lower extremity is much better today SKIN: No rashes. No petechiae - Labs CBC & Chem 7: 10/13/19 06:48 10/13/19 06:48 Labs: Abnormal Lab Results - Last 24 Hours (Table) 10/13/19 10/13/19 Range/Units 06:48 06:48 RBC 4.04 L (4.30-5.90) m/uL Hgb 12.8 L (13.0-17.5) gm/dL Lymphocytes # 0.9 L (1.0-4.8) k/uL BUN 35 H (9-20) mg/dL Creatinine 1.98 H (0.66-1.25) mg/dL Glucose 137 H (74-99) mg/dL Assessment and Plan Assessment: acute stroke secondary to right parietal infarct with left sided hemiparesis and weakness in the left upper and lower extremities 50% stenosis of the right coronary artery Acute kidney injury with new mild left hydronephrosis fall with abrasion on the dorsum of the left hand Nicotine dependence Non-adherence to therapy Diabetes mellitus Hypertension Hyperlipidemia Plan: this is a pleasant 74 years old male who presents with acute stroke, neurology consult, continue with aspirin. Consult vascular surgery for carotid stenosis, consult urologist for left hydronephrosis. Continue with physical therapy, continue with aspirin and Plavix, continue with IV fluids. ETHEL on Monday. Patient refused vascular intervention for his carotid stenosis, patient instructed to follow up as an outpatient as an alternative and he agrees Labs and medication were reviewed.. Continue same treatment. Continue with symptomatic treatment. Resume home medication. Monitor lytes and vitals. DVT and GI prophylaxis. Further recommendations of the clinical course of the patient DVT prophylaxis: Subcutaneous heparin GI Prophylaxis: Pepcid PT/OT: Pending Prognosis is guarded CODE STATUS: DO NOT RESUSCITATE, confirmed with patient
--- NOTE | 2019-10-13 15:41 | PN ---
PROGRESS NOTE Patient is seen for followup for acute kidney injury. Renal function staying stable with creatinine at 1.9. The patient denies any significant complaints. He has been eating well. Currently he is not on any diuretics or IV fluids. PHYSICAL EXAMINATION: On examination today, blood pressure was 135/73, heart rate 64 per minute, he is afebrile. Examination of the heart S1, S2. Examination of lungs, decreased breath sounds at bases. Abdomen is soft, nontender. Examination of lower extremities shows no significant edema. LABS: Sodium 138, potassium 4.6, BUN 35, creatinine 1.98, hemoglobin 12.8. ASSESSMENT: 1. Acute kidney injury, acute tubular necrosis, multifactorial including use of NSAIDs, hypotension, hypovolemia, IV contrast in the setting of use of angiotensin receptor blockers. 2. Chronic kidney disease stage 3, previous creatinine 1.3 2018. 3. Acute right parietal infarct with left hemiparesis. 4. Mild left hydronephrosis noted on ultrasound. No plans for intervention. Patient was evaluated by Urology. 5. Diabetes. 6. Hypertension. PLAN: Continue off Lasix and IV fluids. Encourage increased oral intake. Repeat labs in a.m. MMODL / IJN: [id number] /
[2019-10-13 15:43] VITALS: RESP 18
[2019-10-14 07:03] LABS: Potassium 4.8 mmol/L (3.5-5.1)
[2019-10-14 09:22] VITALS: TEMP 97.7
[2019-10-14] MEDS: amLODIPine 10 MG TAB PO SCH (09:26)
[2019-10-14] MEDS: CLOPIDOGREL 75 MG TAB PO SCH (09:26)
[2019-10-14] MEDS: ASPIRIN 81 MG PO SCH (09:26)
[2019-10-14] MEDS: ATORVASTATIN 40 MG TAB PO SCH (09:26)
[2019-10-14] MEDS: HEPARIN SODIUM,PORCINE 5,000 UNIT/ML 1 ML VIAL SQ SCH (09:27)
[2019-10-14] MEDS: FAMOTIDINE 20 MG TAB PO SCH (09:27)
[2019-10-14] MEDS: SODIUM CHLORIDE 0.9% 1,000 ML IV SCH (12:57)
--- NOTE | 2019-10-14 13:01 | P.PN ---
Subjective Progress Note Date: 10/14/19 's is a 74-year-old gentleman with history of hypertension, hyperlipidemia, diabetes, nicotine dependence, prior CVA, who presented to the hospital with symptoms of left upper extremity weakness, he has been diagnosed with an acute ischemic CVA in the posterior right parietal region on the MRI. Echocardiogram with Doppler study revealed an ejection fraction of 55-60% with mild to moderate aortic sclerosis without any evidence of stenosis, moderate mitral regurgitation and mild to moderate mitral stenosis. Patient underwent a transesophageal echocardiographic study that did not reveal any evidence of a PFO, no evidence of thrombus and the atrial appendage, moderate to severe plaque noted in the ao rta with a normal left ventricular systolic function. Overall the patient is doing well today, our recommendation is that once the patient is discharged he pickup an event monitor at the office, follow-up appointment with Dr. dion Christianson post discharge. Objective - Vital Signs Vital signs: Vital Signs Temp 97.7 F 10/14/19 09:19 Pulse 66 10/14/19 12:10 Resp 18 10/14/19 12:10 BP 154/67 10/14/19 12:10 Pulse Ox 98 10/14/19 12:10 Intake & Output 10/13/19 10/14/19 10/14/19 18:59 06:59 18:59 Intake Total 400 236 Output Total 750 100 150 Balance -350 -100 86 Weight 82.1 kg Intake: IV 100 Oral 300 236 Output: Urine 750 100 150 Other: Voiding Method Toilet Toilet Toilet Urinal # Voids 2 1 - Exam Gen: This is a 74-year-old male. He is sitting on edge of bed and appears to be comfortable and in no acute distress. VS: Patient has been afebrile, heart rate 57, blood pressure 130/66, pulse ox 97% on room air. HEENT: Head is atraumatic, normocephalic. Pupils equal, round. Sclerae is anicteric. [place]. NECK: Supple. No JVD. No lymphadenopathy. No thyromegaly. LUNGS: Clear to auscultation. No wheezes or rhonchi. No intercostal retractions. HEART: Regular rate and rhythm. No murmur. ABDOMEN: Soft. Bowel sounds are present. No masses. No tenderness. EXTREMITIES: No pedal edema. No calf tenderness. NEUROLOGICAL: Patient is awake, alert and oriented x3. Cranial nerves 2 through 12 are grossly intact. Mild weakness of the fisher gill net on the left hand. - Labs CBC & Chem 7: 10/13/19 06:48 10/14/19 05:57 Labs: Abnormal Lab Results - Last 24 Hours (Table) 10/14/19 Range/Units 05:57 Carbon Dioxide 21 L (22-30) mmol/L BUN 38 H (9-20) mg/dL Creatinine 1.86 H (0.66-1.25) mg/dL Assessment and Plan Plan: Assessment and plan: #1 Acute ischemic CVA in the posterior right parietal region, ETHEL performed yesterday did not reveal any evidence of PFO, no thrombus and the atrial appendage, moderate to severe plaque noted in the aorta. Normal LV function #2 Valvular heart disease with moderate aortic sclerosis, moderate mitral regurgitation, minimal to moderate mitral stenosis #3 No evidence of atrial fibrillation #4 History of hypertension #5 hyperlipidemia #6 diabetes Plan From cardiology's perspective, we would recommend the patient have an event monitor from the office on discharge home. Follow-up appointment with Dr. Tapia post discharge. DNP note has been reviewed, I agree with a documented findings and plan of care. Patient was seen and examined.
--- NOTE | 2019-10-14 13:51 | P.DS ---
Providers Date of admission: 10/09/19 13:36 Attending physician: Chu Guzman MD Consults: 10/09/19 13:37 Consult Physician Urgent Consulting Provider: Javier Adams Consult Reason/Comments: acute left sided weakness, acute cva Do you want consulting provider notified?: Yes 10/09/19 13:38 Consult Physician Urgent Consulting Provider: Geoff Vides Consult Reason/Comments: sheldon Do you want consulting provider notified?: Yes 10/10/19 11:52 Consult Physician Urgent Consulting Provider: Yves Hunter Consult Reason/Comments: left subluxation of the third metacarpophalangeal joint Do you want consulting provider notified?: Yes 10/10/19 12:33 Consult Physician Urgent Consulting Provider: Donald Oro Consult Reason/Comments: eval for ipr Do you want consulting provider notified?: Yes 10/11/19 08:58 Consult Physician Routine Consulting Provider: Tessie Corbett Consult Reason/Comments: carotid artery stenosis Do you want consulting provider notified?: Yes 10/11/19 20:21 Consult Physician Routine Consulting Provider: Anjel Montero Consult Reason/Comments: Rule out embolic source, abnormal echo with valvular disease Do you want consulting provider notified?: Yes Primary care physician: Wilmer Garcia Hospital Course: Diagnoses: acute stroke secondary to right parietal infarct with left sided hemiparesis and weakness in the left hand 50%-60% stenosis of the right coronary artery, patient refused surgery Acute kidney injury with new mild left hydronephrosis fall with abrasion on the dorsum of the left hand Nicotine dependence Non-adherence to therapy Diabetes mellitus Hypertension Hyperlipidemia Hospital course: this is a pleasant 74 years old male with past medical history of hypertension, hyperlipidemia, diabetes mellitus, previous CVA/TIA.presents with left upper lower extremity weakness of one-day duration is started at 7:30 in the morning. Associated with some numbness in the hand, associated with slurred speech. Because of weakness patient fell about 3-4 times and has abrasion on the dorsum of the left hand. Patient smokes about 1.5 pack per day and he was not adherent to his baby aspirin. Brain MRI showing acute right parietal lobe infarction vascular surgeon Dr. Corbett evaluated patient for stenosis in his right carotid artery, patient was refusing surgery currently. Dr. Corbett signed off with a recommendation that he follows up as an outpatient in 1-2 weeks, patient informed and he agrees Patient had ETHEL today showing: #1. No PFO #2. No clot in left atrial appendage. #3. There is a moderate to severe plaque in the aorta #4. Normal left size and function. #6. Grossly normal valvular function. Patient will be discharged on aspirin, Plavix and statin as well as Norvasc. (Plavis is recommended only for 21 days and then stop, white male continue with aspirin continuously) Patient remained stable with dyspnea and weakness was in his left hand, do all operator recommended inpatient rehab and patient agrees to it X-ray of the left hand, thirds MPJ subluxation; and is evaluated by orthopedic team who think it is due to degenerative joint disease. Recommendation for outpatient follow-up On the day of discharge patient denies chest pain or dyspnea, no abdominal wound, no nausea vomiting. Patient tolerated diet well Patient was cleared for discharge by all consultants including neurology, cardiology, vascular surgery and orthopedic team Problems and management plan were discussed with the patient and he verbalized understanding and acceptance Upon patient request I spoke with his son Mr. barba [phone], discussed the case with him, he agrees with the plan and follow-up recommendations/instructions Patient was found stable and can be discharged home however he needs follow-up as an outpatient. Patient was instructed to follow up with PCP within one week and patient agrees. Patient instructed to follow up with his manufacturing laborer, manufacturing laborer, coding team lead and orthopedic doctor as recommended, Gen: patient is a AAOx3, no distress CVS: S1-S2, RRR, no murmur Lungs: B/L CTA, no wheezing Abdomen: soft, no distention, no tenderness, positive bowel sounds Extremity: no leg edema or induration Neuro: Left hemiparesis, mainly left-hand weakness Time spent more than 35 minutes Discharge instructions: -Patient refused carotid endarterectomy, and Dr. Corbett was to see him in the office in 2 weeks -Glass Inserter wants to put a heart event monitor for him, follow up with Dr. Tapia -Restart losartan upon discharge for his chronic kidney disease. Metformin is held. Continue with insulin sliding scale Patient Condition at Discharge: Stable Plan - Discharge Summary New Discharge Prescriptions: No Action amLODIPine [Norvasc] 5 mg PO DAILY Atorvastatin [Lipitor] 40 mg PO DAILY HYDROcodone/APAP 10-325MG [Brooks 10-325] 1 tab PO QID metFORMIN HCL 1,000 mg PO BID-W/MEALS Losartan Potassium [Cozaar] 100 mg PO DAILY Ibuprofen [Motrin] 800 mg PO TID PRN PRN Reason: Pain Discharge Medication List Atorvastatin [Lipitor] 40 mg PO DAILY 12/08/17 [History] amLODIPine [Norvasc] 5 mg PO DAILY 12/08/17 [History] HYDROcodone/APAP 10-325MG [Brooks 10-325] 1 tab PO QID 12/10/17 [History] Ibuprofen [Motrin] 800 mg PO TID PRN 10/09/19 [History] Losartan Potassium [Cozaar] 100 mg PO DAILY 10/09/19 [History] metFORMIN HCL 1,000 mg PO BID-W/MEALS 10/09/19 [History] Follow up Appointment(s)/Referral(s): Wilmer Garcia MD [Primary Care Provider] - 10/18/19 2:10 pm Tessie Corbett DO [STAFF PHYSICIAN] - 2 Weeks Christiana Moore MD [Medical Doctor] - 10 Days Franky Tapia MD [STAFF PHYSICIAN] - 2 Weeks (Patient will need event monitor) Yves Hunter MD [STAFF PHYSICIAN] - 2 Weeks Carol Ho MD [STAFF PHYSICIAN] - 1 Week ( chronic kidney disease) Patient Instructions/Handouts: Ischemic Stroke (DC) Discharge Disposition: TRANSFER TO SNF/ECF
[2019-10-14 16:05] VITALS: BP 161/65; PULSE 80
--- NOTE | 2019-10-14 22:01 | PN ---
PROGRESS NOTE Patient is seen for followup for acute kidney injury. Renal function has been stable. Creatinine has actually improved to 1.8 today. He denies any significant complaints. On examination, blood pressure is 154/67, heart rate 66 per minute. He is afebrile. EXAMINATION OF THE HEART: S1 and S2. EXAMINATION OF LUNGS: Decreased breath sounds at bases. ABDOMEN: Soft, non-tender. Examination of lower extremities shows no significant edema. Labs show sodium 137, potassium 4.8, chloride 106, BUN 38, creatinine 1.86. Hemoglobin was 12.8 g/dL. ASSESSMENT: 1. Acute kidney injury, somewhat improved from yesterday, mainly acute tubular necrosis and secondary to non-steroidal anti-inflammatories and hypovolemia on initial admission in the setting of use of angiotensin receptor blockers. 2. Chronic kidney disease, stage III. Baseline creatinine 1.3 in 2018. 3. Acute right parietal infarct with left hemiparesis. 4. Mild hydronephrosis noted on ultrasound. Followup as outpatient with repeat ultrasound. 5. Type 2 diabetes. 6. Hypertension. PLAN: Maintain adequate oral intake. Follow up as outpatient for monitoring of volume status and use of diuretics. MMODL / IJN: [id number] /
--- NOTE | 2019-10-16 13:24 | P.ARTDOP ---
Arterial Doppler Duplex left femoral: Date of his procedure: 10/10/2019 Reason for procedure: Painful left great toe Duplex of the left leg shows the fem-pop graft on the left to be occluded from proximal to distal anastomosis. The popliteal could not be visualized. Clinical correlation per Dr. Corbett.
== END 2019-10-14 16:40 | DRG 64 ==
LOC: EC 11:11 → 3SCARD 13:36
PROVIDERS: ADMIT Internal Medicine; ATTEND Internal Medicine
PROC: B246ZZ4 Ultrasonography of Right and Left Heart, Transesophageal (ICD-10-PCS; principal; 2019-10-13 09:18)
DX: I63.519 Cerebral infarction due to unspecified occlusion or stenosis of unspecified middle cerebral artery (principal); N17.0 Acute kidney failure with tubular necrosis; G81.94 Hemiplegia, unspecified affecting left nondominant side; E87.2 Acidosis; N13.30 Unspecified hydronephrosis; I13.0 Hypertensive heart and chronic kidney disease with heart failure and stage 1 through stage 4 chronic kidney disease, or unspecified chronic kidney disease; I50.32 Chronic diastolic (congestive) heart failure; R40.2363 Coma scale, best motor response, obeys commands, at hospital admission; R40.2143 Coma scale, eyes open, spontaneous, at hospital admission; R40.2253 Coma scale, best verbal response, oriented, at hospital admission; Z66 Do not resuscitate; F17.210 Nicotine dependence, cigarettes, uncomplicated; E86.1 Hypovolemia; G89.29 Other chronic pain; I05.2 Rheumatic mitral stenosis with insufficiency; T39.395A Adverse effect of other nonsteroidal anti-inflammatory drugs [NSAID], initial encounter; E78.5 Hyperlipidemia, unspecified; Z11.59 Encounter for screening for other viral diseases; E11.22 Type 2 diabetes mellitus with diabetic chronic kidney disease; Z53.20 Procedure and treatment not carried out because of patient's decision for unspecified reasons; I25.10 Atherosclerotic heart disease of native coronary artery without angina pectoris; S60.512A Abrasion of left hand, initial encounter; W19.XXXA Unspecified fall, initial encounter; I65.21 Occlusion and stenosis of right carotid artery; M19.042 Primary osteoarthritis, left hand; N18.3 Chronic kidney disease, stage 3 (moderate); Z79.84 Long term (current) use of oral hypoglycemic drugs; Z79.82 Long term (current) use of aspirin; Z79.899 Other long term (current) drug therapy; Z90.89 Acquired absence of other organs; Z98.890 Other specified postprocedural states; Z86.73 Personal history of transient ischemic attack (TIA), and cerebral infarction without residual deficits; Z91.14 Patient's other noncompliance with medication regimen; Z91.19 Patient's noncompliance with other medical treatment and regimen
CPT/HCPCS: 36415; 70450; 70496; 70498; 70551; 71045; 71046; 76770; 80048; 80053; 80061; 81003; 83036; 83735; 84484; 85025; 85610; 85730; 87635; 90715; 93005; 93306; 93312; 93320; 93325; 93880; 96360; 96361; 99285

== ENCOUNTER → 2019-11-28 | Outpatient (CLI) | payer MEDICARE ==
--- NOTE | 2019-11-29 07:48 | US ---
EXAMINATION TYPE: US kidneys/renal and bladder DATE OF EXAM: 11/28/2019 COMPARISON: US dated 10/10/2019 CLINICAL HISTORY: N13.30 HYDRONEPHROSIS. diabetic, left renal cyst on prior US EXAM MEASUREMENTS: Right Kidney: 9.2 x 5.2 x 4.8 cm Left Kidney: 11.1 x 5.4 x 4.3 cm Post Void Residual Volume: 7.2 mL Right Kidney: No hydronephrosis or masses seen; smaller than left kidney Left Kidney: couple of cortical cysts were seen with larger mid lower lateral cortex = 1.1 x 1.2 x 1. 2cm Bladder: wnl Bilateral Jets seen: no, only left ureteral jet was seen within 3 minute observation Normal Post Void Residual: Yes There is no evidence for hydronephrosis at this point in time. No nephrolithiasis is seen. The urin tari bladder is anechoic. Left ureteral jet was seen. Kidneys show normal cortical medullary differentiation. Lower pole left kidney shows some mild caliec tasis similar to prior exam. IMPRESSION: Single ureteral jet was identified. Minimal caliectasis lower pole left kidney shows a similar appear ance. Small cortical cysts along the left kidney cortex and an exophytic location similar to prior ex am appear simple.
== END | disposition home or self-care (01) ==
LOC: RADUSWWP 15:49
PROVIDERS: ATTEND Family Medicine
DX: N28.89 Other specified disorders of kidney and ureter (principal); N28.1 Cyst of kidney, acquired
CPT/HCPCS: 76770

== ENCOUNTER → 2021-04-06 | Outpatient (CLI) | payer MEDICARE ==
[2021-04-06 14:52] LABS: HCT 43.1 % (39.0-53.0); HGB 14.5 gm/dL (13.0-17.5); MCH 33.1 pg (25.0-35.0); MCHC 33.6 g/dL (31.0-37.0); MCV 98.6 fL (80.0-100.0); Mean Platelet Volume 7.4; Platelet Count 283 k/uL (150-450); RBC 4.38 m/uL (4.30-5.90); RDW 12.5 % (11.5-15.5); WBC 10.8 k/uL (3.8-10.6)
[2021-04-06 15:01] LABS: Albumin 4.2 g/dL (3.5-5.0); Calcium 9.1 mg/dL (8.4-10.2); Magnesium 2.3 mg/dL (1.6-2.3); Phosphorus 2.8 mg/dL (2.5-4.5); Total Bilirubin 0.6 mg/dL (0.2-1.3); Total Protein 7.2 g/dL (6.3-8.2); Uric Acid 5.2 mg/dL (3.5-8.5)
--- NOTE | 2021-04-06 15:22 | US ---
EXAMINATION TYPE: US carotid duplex BILAT DATE OF EXAM: 04/06/2021 COMPARISON: Prior carotid ultrasound October 11, 2019. Prior CTA neck October 09, 2019 CLINICAL HISTORY: R53.1 Left Sided Weakness, I65.29 Carotid Stenosis. CVA, ,TIA, DM, HTN, Left sided weakness EXAM MEASUREMENTS: RIGHT: Peak Systolic Velocity (PSV) cm/sec ----- Right CCA: 97.4 ----- Right ICA: 239 ----- Right ECA: 199 ICA/CCA ratio: 2.45 RIGHT: End Diastole cm/sec ----- Right CCA: 21.4 ----- Right ICA: 44.6 ----- Right ECA: 19.8 LEFT: Peak Systolic Velocity (PSV) cm/sec ----- Left CCA: 71.9 ----- Left ICA: 78.4 ----- Left ECA: 157 ICA/CCA ratio: 1.09 LEFT: End Diastole cm/sec ----- Left CCA: 16.8 ----- Left ICA: 18.1 ----- Left ECA: 23.2 VERTEBRALS (direction of flow): Right Vertebral: Antegrade Left Vertebral: Antegrade Rhythm: Normal Kirk scale images redemonstrate moderate 2 severe eccentric plaque centered at bilateral carotid bulb s. Abnormal right-sided velocities and ratios now present. IMPRESSION: Moderate to severe atherosclerotic changes bilaterally. Hemodynamic significant stenosis between 50-69 % is felt now present on the right. Consider repeat CTA or MRA of the neck to further evaluate and characterize. Criteria for Assigning % of Stenosis / Diameter reduction (Estimation based on the indirect measurements of the internal carotid artery velocities (ICA PSV). 1. Normal (no stenosis)=ICA PSV < 125 cm/s: ratio < 2.0: ICA EDV<40 cm/s. 2. Less than 50% stenosis=ICA PSV < 125 cm/s: ratio < 2.0: ICA EDV<40 cm/s. 3. 50 to 69% stenosis=ICA PSV of 125 to 230 cm/s: ration 2.0 ? 4.0: ICA EDV 40-100 cm/s. 4. Greater than 70% stenosis to near occlusion= ICA PSV > 230 cm/s: ratio > 4.0: ICA EDV > 100 cm/s. 5. Near occlusion= ICA PSV velocities may be low or undetectable: variable ratio and ICA EDV. 6. Total occlusion=unable to detect flow.
[2021-04-06 15:58] LABS: Appearance,Urine Clear (Clear); Bilirubin,Urine Negative (Negative); Blood,Urine Negative (Negative); Color,Urine Yellow; Glucose,Urine (UA) Negative (Negative); Ketones,Urine Negative (Negative); Leukocyte Esterase,Urine Negative (Negative); Nitrite,Urine Negative (Negative); Protein,Urine Trace (Negative); Specific Gravity,Urine 1.024 (1.001-1.035); Urobilinogen,Urine <2.0 mg/dL (<2.0)
[2021-04-07 00:08] LABS: % Iron Saturation 24.05 (15.00-50.00); Ferritin 62.8 ng/mL (22.0-322.0)
== END | disposition home or self-care (01) ==
LOC: RADUSWWP 13:44
PROVIDERS: ATTEND Psychiatry & Neurology Neurology
DX: I65.29 Occlusion and stenosis of unspecified carotid artery (principal); R53.1 Weakness; D64.9 Anemia, unspecified; N39.0 Urinary tract infection, site not specified; E83.39 Other disorders of phosphorus metabolism; E21.3 Hyperparathyroidism, unspecified; E55.9 Vitamin D deficiency, unspecified; M10.9 Gout, unspecified
CPT/HCPCS: 36415; 80053; 81003; 82306; 82728; 83540; 83550; 83735; 83970; 84100; 84550; 85027; 93880

== ENCOUNTER 2021-05-10 09:54 | Day surgery (SDC) | payer MEDICARE ==
[2021-05-07 09:06] VITALS: BMI 34.8
[2021-05-10] MEDS ORDERED: SODIUM CHLORIDE 0.9% 500 ML 500 ML IV ONE (10:12)
[2021-05-10] MEDS: BENZOCAINE SPRAY 1 CAN TOPICAL ONE ×2 (11:34→11:51)
[2021-05-10 11:38] VITALS: RESP 18
[2021-05-10] MEDS ORDERED: MIDAZOLAM 2 MG/2 ML VIAL IV ONE (11:51)
[2021-05-10] MEDS ORDERED: fentaNYL (PF) 50 MCG/ML 5 ML AMP IV ONE (11:51)
[2021-05-10] MEDS ORDERED: SODIUM CHLORIDE 0.9% 1,000 ML IV SCH (12:15)
--- NOTE | 2021-05-10 12:18 | P.TEE ---
Indications for Procedure(s): Recurrent CVA Date of Procedure: 05/10/21 Preoperative Diagnosis: Recurrent CVA, hypertension and hypercholesterolemia Description of Procedure(s): INDICATION: This is a 75-year-old gentleman with history of hypertension and hypercholesteremia being evaluated for recurrent CVAs to rule out any Cardec source of emboli. CONSENT: Informed verbal consent was obtained from the patient PROCEDURE: Patient was brought to the lab in a fasting state. He was prepped and draped in the usual fashion. The throat was sprayed with Cetacaine patient was given IV sedation with 2 mg of Versed and 50 mics of fentanyl for a lubricated Omni probe was introduced into the oropharynx and was advanced into the esophagus. Multiple views were obtained both from stomach and esophagus. Patient tolerated the procedure well. Color, pulsed and continuous for Doppler studies were performed. Saline contrast probably is also performed FINDINGS: The aortic valve shows some thickening and mild restriction. By planimetry valve area of 1.8 cm were pain. There is no aortic regurgitation. Mitral valve showed mild regurgitation. Tricuspid valve showed mild regurgitation. The interatrial septum appeared to be intact without any shunt. Saline contrast bubbles injection did not reveal any shunting. Left atrial appendage is free of any clot. Left ankle function is normal. There is mild to moderate plaque in the aorta IMPRESSION: #1. Mild aortic stenosis. #2. Mild mitral regurgitation #3. No clot in the left atrial appendage. #4. No PFO #5. Preserved LV function. #6. Moderate plaque in the aorta PLAN: Continue with antiplatelet therapy. Continue to investigate for any other causes of CVA
[2021-05-10 18:37] VITALS: BP 168/78; PULSE 71
== END 2021-05-10 13:00 | disposition home or self-care (01) ==
LOC: CATHCVL 09:54
PROVIDERS: ATTEND Internal Medicine Cardiovascular Disease
DX: I63.9 Cerebral infarction, unspecified (principal); I10 Essential (primary) hypertension; E78.00 Pure hypercholesterolemia, unspecified; I35.0 Nonrheumatic aortic (valve) stenosis; I70.0 Atherosclerosis of aorta; I34.0 Nonrheumatic mitral (valve) insufficiency; Z20.822 Contact with and (suspected) exposure to COVID-19
CPT/HCPCS: 93312; 93320; 93325; 87635; J2250; J3010